=== PATIENT | female | born 1940 | race Caucasian/White ===

== ENCOUNTER → 2016-09-19 | Outpatient (CLI) | payer MEDICARE, BC ==
--- NOTE | 2016-09-19 14:22 | BD ---
EXAMINATION TYPE: MG DEXA axial skeleton. DATE OF EXAM: 09/19/2016 1:04 PM COMPARISON: 12.19.2011 CLINICAL HISTORY: M85.80, Z78.0 POST MENOPAUSAL Height: 64.5 Weight: 145 FRAX RISK QUESTIONS: Alcohol (3 or more units per day): NO Family History (Parent hip fracture): NO Glucocorticoids (More than 3mos): NO (Ex: prednisone, prednisolone, methylprednisolone, dexamethasone, and hydrocortisone). History of Fracture in Adulthood: YES Secondary Osteoporosis: 1. Type 1 Diabetes: TYPE 2 2. Hyperthyroidism: NO 3. Menopause before 45: NO 4. Malnutrition: NO 5. Chronic liver disease: NO Rheumatoid Arthritis: NO Current Tobacco Use: NO RISK FACTORS HISTORY OF: History of Wrist SURGERY: CARPAL TUNNEL SURG. BOTH WRISTS AND THUMB REPLACEMENT LT Other Fractures since Age 50: YES, TOE AND ANKLE When: > 50 YRS OLD Family History of Osteoporosis: NO Smoke tobacco: NO Drink Alcohol: SOCIAL Active: YES Diet low in dairy products/other sources of calcium: NO Postmenopausal woman: 51 YRS OLD Adrenal Insufficiency: YES, POSSIBLE, CHRONIC RENAL DISEASE MEDICATIONS: Additional Medications: BP MEDS, DIABETIC MEDS, XANAX PRN, STATINS FOR CHOLESTEROL, VIT D Additional History: DIABETIC, HYPERTENSION, CHRONIC RENAL DISEASE EXAM MEASUREMENTS: Bone mineral densitometry was performed using the [employer] System. Bone mineral density as measured about the Lumbar spine is: ----- L1-L4(G/cm2): 1.385 T Score Values are as follows: ----- L1: 0.8 ----- L2: 0.6 ----- L3: 3.4 ----- L4: 1.8 ----- L1-L4: 1.7 Bone mineral density has: Increased 4.6% since study of: 12.19.2011 Bone mineral density about the R hip (g/cm2): 0.963 Bone mineral density about the L hip (g/cm2): 1.043 T Score values are as follows: -----R Neck: -0.5 -----L Neck: 0.0 -----R Intertrochanter: -0.7 -----L Intertrochanter: -0.4 Bone mineral density has: Decreased -9.0% since study of: 04.06.2012 FRAX%'S: FOR MAJOR OSTEOPOROTIC FX: 13.7%.....FOR HIP FX: 1.6% PROBABILITY OF FX IN 10 YRS TIME IMPRESSION: Normal (Values between +1 and -1 indicate normal bone mass) FOR BOTH SCANS, L/S SPINE AND BOTH HIPS NOTE: T-SCORE=SD OF THE YOUNG ADULT MEAN.
--- NOTE | 2016-09-22 09:14 | MM ---
Reason for exam: screening (asymptomatic). Last mammogram was performed 1 year and 1 month ago. History: Patient is postmenopausal, history of other cancer, and is nulliparous. Family history of premenopausal breast cancer in sister at age 40, breast cancer in paternal cousin at age 55, and breast cancer in maternal aunt at age 74. Excisional biopsy of the left breast, 1981. Took estrogen for 10 years beginning at age 52. Took progesterone for 10 years beginning at age 52. Physical Findings: A clinical breast exam by your physician is recommended on an annual basis and results should be correlated with mammographic findings. MG 3D Screening Mammo W/Cad Bilateral CC and MLO view(s) were taken. Prior study comparison: August 22, 2015, bilateral MG 3d screening mammo w/cad. July 12, 2014, bilateral MG screening mammo w CAD. The breast tissue is heterogeneously dense. This may lower the sensitivity of mammography. There is no discrete abnormality. No significant changes when compared with prior studies. ASSESSMENT: Negative, BI-RAD 1 RECOMMENDATION: Routine screening mammogram of both breasts in 1 year.
== END | disposition home or self-care (01) ==
LOC: RADMAMWWP 11:55
PROVIDERS: ATTEND Internal Medicine
DX: Z12.31 Encounter for screening mammogram for malignant neoplasm of breast (principal); M85.80 Other specified disorders of bone density and structure, unspecified site
CPT/HCPCS: 77080; 77063; G0202

== ENCOUNTER → 2016-12-22 | Outpatient (CLI) | payer MEDICARE, BC ==
[2016-12-22 10:20] LABS: Appearance,Urine Clear (Clear); Bilirubin,Urine Negative (Negative); Glucose,Urine (UA) Negative (Negative); Ketones,Urine Negative (Negative); Leukocyte Esterase,Urine Trace (Negative); Mucus,Urine Rare /hpf; Nitrite,Urine Negative (Negative); PH, Urine 5.5 (5.0-8.0); Particle Count 682; Protein,Urine Negative (Negative); RBC,Urine 1 /hpf (0-5); Specific Gravity,Urine 1.011 (1.001-1.035); Squamous Epithelial Cell,Urine <1 /hpf (0-4); UA Billing (MACRO vs. MICRO) MICRO; Urobilinogen,Urine <2.0 mg/dL (<2.0); WBC,Urine 2 /hpf (0-5)
[2016-12-22 10:27] LABS: Basophils # (A) 0.1 k/uL (0-0.2); Basophils % (A) 1 %; CH 30.2; CHCM 33.4; Eosinophils # (A) 0.2 k/uL (0-0.7); Eosinophils % (A) 3 %; HCT 41.5 % (34.0-46.0); HDW 2.74; HGB 14.2 gm/dL (11.4-16.0); Luc # (Auto) 0.13; Luc % (Auto) 2; Lymphocytes # (A) 1.5 k/uL (1.0-4.8); Lymphocytes % (A) 23 %; MCH 31.1 pg (25.0-35.0); MCHC 34.2 g/dL (31.0-37.0); Mean Platelet Volume 7.8; Monocytes # (A) 0.3 k/uL (0-1.0); Monocytes % (A) 5 %; Neutrophils # (A) 4.4 k/uL (1.3-7.7); Neutrophils % (A) 67 %; RBC 4.56 m/uL (3.80-5.40); RDW 13.4 % (11.5-15.5); WBC 6.6 k/uL (3.8-10.6); WBC (Perox) 6.52
[2016-12-22 14:58] LABS: Calcium 9.9 mg/dL (8.4-10.2); Magnesium 1.8 mg/dL (1.6-2.3); Potassium 4.3 mmol/L (3.5-5.1); Uric Acid 7.2 mg/dL (3.7-7.4)
[2016-12-22 15:09] LABS: % Iron Saturation 26.2 % (20-50)
== END | disposition home or self-care (01) ==
LOC: LABWHC1 09:41
PROVIDERS: ATTEND Internal Medicine Nephrology
DX: N18.3 Chronic kidney disease, stage 3 (moderate) (principal); N39.0 Urinary tract infection, site not specified; D64.9 Anemia, unspecified; E56.9 Vitamin deficiency, unspecified; M10.9 Gout, unspecified
CPT/HCPCS: 36415; 80048; 81001; 82306; 82728; 83540; 83550; 83735; 83970; 84100; 84550; 85025

== ENCOUNTER → 2017-06-08 | Outpatient (CLI) | payer MEDICARE, BC ==
[2017-06-08 11:17] LABS: Appearance,Urine Clear (Clear); Bacteria,Urine Rare /hpf; Bilirubin,Urine Negative (Negative); Glucose,Urine (UA) Negative (Negative); Ketones,Urine Negative (Negative); Leukocyte Esterase,Urine Moderate (Negative); Mucus,Urine Rare /hpf; Nitrite,Urine Negative (Negative); PH, Urine 5.5 (5.0-8.0); Particle Count 1477; Protein,Urine Trace (Negative); RBC,Urine 1 /hpf (0-5); Specific Gravity,Urine 1.014 (1.001-1.035); Squamous Epithelial Cell,Urine 1 /hpf (0-4); UA Billing (MACRO vs. MICRO) MICRO; Urobilinogen,Urine <2.0 mg/dL (<2.0); WBC,Urine 3 /hpf (0-5)
[2017-06-08 11:23] LABS: Basophils % (A) 1 %; CH 30.5; CHCM 33.4; Eosinophils # (A) 0.1 k/uL (0-0.7); Eosinophils % (A) 2 %; HCT 41.7 % (34.0-46.0); HDW 2.78; Luc # (Auto) 0.11; Luc % (Auto) 2; Lymphocytes # (A) 1.3 k/uL (1.0-4.8); Lymphocytes % (A) 23 %; MCH 30.9 pg (25.0-35.0); MCHC 33.7 g/dL (31.0-37.0); MCV 91.8 fL (80.0-100.0); Mean Platelet Volume 9.4; Monocytes # (A) 0.4 k/uL (0-1.0); Monocytes % (A) 6 %; Neutrophils # (A) 3.7 k/uL (1.3-7.7); Neutrophils % (A) 65 %; RBC 4.54 m/uL (3.80-5.40); WBC 5.6 k/uL (3.8-10.6); WBC (Perox) 5.65
[2017-06-08 11:39] LABS: Calcium 9.8 mg/dL (8.4-10.2); Magnesium 1.7 mg/dL (1.6-2.3); Potassium 4.3 mmol/L (3.5-5.1); Uric Acid 7.4 mg/dL (3.7-7.4)
[2017-06-08 16:42] LABS: Iron Saturation 27.78 (12.00-45.00)
== END | disposition home or self-care (01) ==
LOC: LABWHC1 10:26
PROVIDERS: ATTEND Internal Medicine Nephrology
DX: N18.3 Chronic kidney disease, stage 3 (moderate) (principal); E56.9 Vitamin deficiency, unspecified; D64.9 Anemia, unspecified; M10.9 Gout, unspecified; N39.0 Urinary tract infection, site not specified
CPT/HCPCS: 36415; 80048; 81001; 82306; 82728; 83540; 83550; 83735; 83970; 84100; 84550; 85025

== ENCOUNTER 2017-09-08 16:48 | Emergency (ER) | payer MEDICARE, BC ==
[2017-09-08 17:07] VITALS: BP 167/81; PULSE 60; RESP 20; TEMP 98.1
[2017-09-08] MEDS ORDERED: DIPH,PERTUS(ACELL)TETVAC-LF 0.5 ML VIAL IM ONE (17:39)
--- NOTE | 2017-09-08 18:01 | XR ---
PROCEDURE: XR tibia fibula LT 2 views DATE AND TIME: 09/08/2017 5:47 PM REFERRING PHYSICIAN: Kathy Jasmine CLINICAL INDICATION: Pain. Laceration to left lower leg after fall. TECHNIQUE: AP and lateral views. COMPARISON: None FINDINGS: SOFT TISSUES: There is comminuted soft tissue swelling and soft tissue emphysema between the posterom edial skin of the proximal and mid leg and the proximal-mid tibia. Soft tissue arterial calcifications noted, consistent with advanced atherosclerosis. No radiopaque foreign bodies. SKELETAL STRUCTURES: The bones and joints are unremarkable. IMPRESSION: PROMINENT SOFT TISSUE EMPHYSEMA AND SOFT TISSUE SWELLING.
--- NOTE | 2017-09-08 18:56 | ED ---
Wound/Laceration HPI - General Chief Complaint: Wound/Laceration Stated Complaint: Fall-leg injury/laceration Time Seen by Provider: 09/08/17 17:11 Source: patient, family Mode of arrival: wheelchair Limitations: no limitations - History of Present Illness Initial Comments: 76 year-old female patient presents to the emergency department today for complaints of the laceration to the left pires. Patient states that she was climbing up on a wooden chair to put away some supplies when she fell from the chair scraping her leg. She states that she had a large cut to her leg and had a lot of blood loss. She states that she was able to get the bleeding under control however presented here for evaluation. She denies hitting her head or losing consciousness during the fall. She is denying any head or neck pain. Denies any back pain. She is unsure when her last tetanus shot was given. She takes aspirin. Patient denies any headache, chest pain, shortness of breath, dizziness, weakness, abdominal pain, nausea, vomiting, or difficulties with bowel movements or urination. - Related Data Home Medications Medication Instructions Recorded Confirmed ALPRAZolam [Xanax] 0.25 mg PO TID PRN 12/12/15 04/10/16 Aspirin [Adult Low Dose Aspirin EC] 81 mg PO Q48H 12/12/15 04/10/16 Ezetimibe/Simvastatin [Vytorin 1 tab PO Q48H 12/12/15 04/10/16 10-20 mg Tablet] Metoprolol Succinate [Toprol XL] 50 mg PO QAM 12/12/15 04/10/16 metFORMIN HCL [Glucophage] 500 mg PO HS 12/12/15 04/10/16 sitaGLIPtin PHOS/metFORMIN HCL 1 tab PO BID 12/12/15 04/10/16 [Janumet 50-500 mg Tablet] Ergocalciferol [Vitamin D2] 50,000 unit PO QMONTH 01/07/16 04/10/16 Latanoprost Ophth [Xalatan 0.005%] 1 drops BOTH EYES HS 01/07/16 04/10/16 amLODIPine [Norvasc] 10 mg PO HS 01/07/16 04/10/16 Previous Rx's Medication Instructions Recorded Cephalexin [Keflex] 500 mg PO Q6H #28 cap 12/26/17 Allergies Allergy/AdvReac Type Severity Reaction Status Date / Time benazepril Allergy Angioedema Verified 09/08/17 17:07 Sulfa (Sulfonamide Allergy Rash/Hives Verified 09/08/17 17:07 Antibiotics) ibuprofen [From Motrin] AdvReac "unable to Verified 09/08/17 17:07 get up out of bed" Review of Systems ROS Statement: Those systems with pertinent positive or pertinent negative responses have been documented in the HPI. ROS Other: All systems not noted in ROS Statement are negative. Past Medical History Past Medical History: Coronary Artery Disease (CAD), Diabetes Mellitus, Eye Disorder, Hyperlipidemia, Hypertension, Renal Disease Additional Past Medical History / Comment(s): kidney dr recommended she get an Fe infusion, she did so had a reaction during infusion (throat & tongue sweeling ) went to ER & was told that she was allergic to bezapril that she was taking & it was stopped, glaucoma History of Any Multi-Drug Resistant Organisms: None Reported Past Surgical History: Adenoidectomy, Breast Surgery, Hysterectomy, Joint Replacement, Orthopedic Surgery, Tonsillectomy Additional Past Surgical History / Comment(s): left breast biopsy, laproscopic via naval "to check ovaries and uterus", D & C, carpal tunnel in left & right hand & left thumb joint replacement, bladder prolapse & replace, EGD, colonoscopy, bilateral eyelid surgery Past Anesthesia/Blood Transfusion Reactions: No Reported Reaction Past Psychological History: No Psychological Hx Reported Smoking Status: Never smoker Past Alcohol Use History: None Reported Past Drug Use History: None Reported - Past Family History Mother Family Medical History: Cancer, Coronary Artery Disease (CAD), Hypertension Additional Family Medical History / Comment(s): CA: skin Father Family Medical History: Cancer, Coronary Artery Disease (CAD), Hypertension, Myocardial Infarction ([place]) Additional Family Medical History / Comment(s): CA:skin General Exam Limitations: no limitations General appearance: alert, in no apparent distress, other (Physical well- developed, well-nourished elderly female patient in no acute distress. Vital signs upon presentation were temperature 98.1F, pulse 60, respirations 20, blood pressure 167/81, pulse ox 98% on room air.) Course Vital Signs 09/08/17 17:05 Temperature 98.1 F Pulse Rate 60 Respiratory 20 Rate Blood Pressure 167/81 O2 Sat by Pulse 98 Oximetry Procedures - Laceration Laceration #1 Time Out Performed: Yes Indication: laceration Site: lower extremity (left ) Size (cm): 12 Description: flap Depth: simple, single layer Anesthetic Used: lidocaine 1% Amount (mls): 25 Type of Sutures: nylon Size of Sutures: 4-0 Number of Sutures: 17 Technique: simple, interrupted (12), horizontal mattress (5) Patient Tolerated Procedure: well, no complications Medical Decision Making - Medical Decision Making 76 year-old female patient presented to the emergency department today for evaluation of laceration to the left pires. Physical examination did reveal a 12 cm laceration to the left pires, with a flap-like laceration. Area was irrigated extensively. Sutures were placed as documented. She will be put on keflex due to her history of diabetes and the size of the laceration. Patient was educated regarding signs or symptoms of infection. She is instructed to follow-up with her primary care physician for reevaluation of the wound in 1-2 days. She is instructed to return here for suture removal in 14-21 days. She was instructed to return here immediately for any new, worsening, or concerning symptoms. She verbalized understanding and agree with this plan. - Radiology Data Radiology results: report reviewed, image reviewed 2 views of the tib-fib were obtained and show comminuted soft tissue swelling and soft tissue emphysema between the process tear over medial scan of the proximal and mid leg in the proximal mid tibia. Soft tissue arterial calcifications noted, consistent with advanced atherosclerosis. No radiopaque foreign bodies. Skeletal structures are unremarkable. Impression by Dr. Alvin Kaye shows prominent soft tissue emphysema and soft tissue swelling. Disposition Clinical Impression: Laceration of lower leg Disposition: HOME SELF-CARE Condition: Good Instructions: Care For Your Stitches (ED), Laceration (ED) Additional Instructions: Keep wound clean and dry. Gently wash twice daily with warm water and antibacterial soap. Monitor for signs or symptoms of infection including but not limited to redness, drainage of pus, swelling, fever, or chills. Return in 1421 days for removal of stitches. Follow-up with her primary care physician for a wound recheck. Return here immediately for any new, worsening, or concerning symptoms. Prescriptions: Cephalexin [Keflex] 500 mg PO Q6H #28 cap Referrals: Sarthak Sow MD [Primary Care Provider] - 1-2 days Time of Disposition: 18:56
== END 2017-09-08 19:05 | disposition home or self-care (01) ==
LOC: EC 16:48
DX: S81.812A Laceration without foreign body, left lower leg, initial encounter (principal); T79.7XXA Traumatic subcutaneous emphysema, initial encounter; E78.5 Hyperlipidemia, unspecified; I10 Essential (primary) hypertension; I25.10 Atherosclerotic heart disease of native coronary artery without angina pectoris; E11.9 Type 2 diabetes mellitus without complications; H40.9 Unspecified glaucoma; Z79.82 Long term (current) use of aspirin; Z79.899 Other long term (current) drug therapy; Z79.84 Long term (current) use of oral hypoglycemic drugs; Z88.2 Allergy status to sulfonamides; Z88.6 Allergy status to analgesic agent; Z88.8 Allergy status to other drugs, medicaments and biological substances; Z23 Encounter for immunization; W07.XXXA Fall from chair, initial encounter; Y93.39 Activity, other involving climbing, rappelling and jumping off
CPT/HCPCS: 12004; 90471; 90715; 99283

== ENCOUNTER 2017-09-15 10:37 | Emergency (ER) | payer MEDICARE, BC ==
--- NOTE | 2017-09-15 12:43 | ED ---
Medical Decision Making - Medical Decision Making PA supervision I did personally evaluate the patient did have a long discussion with the patient and her regarding findings. The wound appears to be healing no slowly there is some tissue reaction from his sutures with her not to be taken out for about another week. No evidence of any purulent drainage. No proximal lymphadenopathy. No calf tenderness no evidence of DVT at this time clinically. I do agree with the assessment and plan. Disposition Clinical Impression: Encounter for wound re-check Disposition: HOME SELF-CARE Condition: Good Referrals: Sarthak Sow MD [Primary Care Provider] - 1-2 days
--- NOTE | 2017-09-15 12:52 | ED ---
Recheck HPI - General Chief Complaint: Recheck/Abnormal Lab/Rx Stated Complaint: Wound recheck Time Seen by Provider: 09/15/17 12:03 Source: patient, RN notes reviewed Mode of arrival: ambulatory Limitations: no limitations - History of Present Illness Initial Comments: This is a 76-year-old female who presents to the emergency department for wound recheck. Patient was seen here last Thursday when she sustained a laceration to her left lower extremity. She ended up getting 18 sutures and was placed on Keflex. Patient noticed some bleeding, redness and swelling to the area and presented to [facility] on Thursday. They placed Steri-Strips and added amoxicillin to her antibiotic regimen. Patient presents to the emergency department today worried about a wound infection. She states that she has had the wound covered for the past 2 days because it was bleeding and she believed there were areas that were gaping open. Patient states that she has a history of PAD and diabetes so worries about healing of her wound. Denies any fevers or chills. Denies chest pain, shortness of breath, abdominal pain, nausea or vomiting, constipation or diarrhea, dysuria or hematuria, numbness or tingling, headache or vision changes. - Related Data Home Medications Medication Instructions Recorded Confirmed ALPRAZolam [Xanax] 0.25 mg PO TID PRN 12/12/15 04/10/16 Aspirin [Adult Low Dose Aspirin EC] 81 mg PO Q48H 12/12/15 04/10/16 Ezetimibe/Simvastatin [Vytorin 1 tab PO Q48H 12/12/15 04/10/16 10-20 mg Tablet] Metoprolol Succinate [Toprol XL] 50 mg PO QAM 12/12/15 04/10/16 metFORMIN HCL [Glucophage] 500 mg PO HS 12/12/15 04/10/16 sitaGLIPtin PHOS/metFORMIN HCL 1 tab PO BID 12/12/15 04/10/16 [Janumet 50-500 mg Tablet] Ergocalciferol [Vitamin D2] 50,000 unit PO QMONTH 01/07/16 04/10/16 Latanoprost Ophth [Xalatan 0.005%] 1 drops BOTH EYES HS 01/07/16 04/10/16 amLODIPine [Norvasc] 10 mg PO HS 01/07/16 04/10/16 Previous Rx's Medication Instructions Recorded Cephalexin [Keflex] 500 mg PO Q6H #28 cap 09/08/17 Allergies Allergy/AdvReac Type Severity Reaction Status Date / Time benazepril Allergy Angioedema Verified 09/15/17 11:06 Sulfa (Sulfonamide Allergy Rash/Hives Verified 09/15/17 11:06 Antibiotics) ibuprofen [From Motrin] AdvReac "unable to Verified 09/15/17 11:06 get up out of bed" Review of Systems ROS Statement: Those systems with pertinent positive or pertinent negative responses have been documented in the HPI. ROS Other: All systems not noted in ROS Statement are negative. Past Medical History Past Medical History: Coronary Artery Disease (CAD), Diabetes Mellitus, Eye Disorder, Hyperlipidemia, Hypertension, Renal Disease Additional Past Medical History / Comment(s): kidney dr recommended she get an Fe infusion, she did so had a reaction during infusion (throat & tongue sweeling ) went to ER & was told that she was allergic to bezapril that she was taking & it was stopped, glaucoma History of Any Multi-Drug Resistant Organisms: None Reported Past Surgical History: Adenoidectomy, Breast Surgery, Hysterectomy, Joint Replacement, Orthopedic Surgery, Tonsillectomy Additional Past Surgical History / Comment(s): left breast biopsy, laproscopic via naval "to check ovaries and uterus", D & C, carpal tunnel in left & right hand & left thumb joint replacement, bladder prolapse & replace, EGD, colonoscopy, bilateral eyelid surgery Past Anesthesia/Blood Transfusion Reactions: No Reported Reaction Past Psychological History: No Psychological Hx Reported Smoking Status: Never smoker Past Alcohol Use History: None Reported Past Drug Use History: None Reported - Past Family History Mother Family Medical History: Cancer, Coronary Artery Disease (CAD), Hypertension Additional Family Medical History / Comment(s): CA: skin Father Family Medical History: Cancer, Coronary Artery Disease (CAD), Hypertension, Myocardial Infarction ([place]) Additional Family Medical History / Comment(s): CA:skin General Exam - General Exam Comments Initial Comments: General: Awake and alert, well-developed; in no apparent distress. HEENT: Head atraumatic, normocephalic. Pupils are equal, round and reactive to light. Extraocular movements intact. Neck: Supple. Normal ROM. Cardiovascular: Regular rate and rhythm. No murmurs, rubs or gallops. Chest symmetrical. Respiratory: Lungs clear to auscultation bilaterally. No wheezes, rales or rhonchi. Normal respiratory effort with no use of accessory muscles. Musculoskeletal: Normal ROM of left lower extremity. Sensation is intact. Pedal pulses are 2+ equal and palpable bilaterally. Skin: [place], warm and dry without rashes. There is a "J-shaped" laceration on left lower pires. Sutures are intact with 3 Steri-Strips present. There is some swelling of the left lower extremity and redness surrounding the wound. There is some serous drainage present. No calf tenderness. Negative Homans sign. Neurological: Alert and oriented x3. CN II-XII grossly intact. Speech is fluent and answers are appropriate. No focal neuro deficits. Psychiatric: Normal mood and affect. No overt signs of depression or anxiety noted. Limitations: no limitations Course Vital Signs 09/15/17 11:02 Temperature 96.8 F L Pulse Rate 63 Respiratory 16 Rate Blood Pressure 161/74 O2 Sat by Pulse 100 Oximetry Medical Decision Making - Medical Decision Making This is a 76-year-old female who presented to the emergency department for wound recheck. Patient was seen here last Thursday after sustaining a laceration to her left lower extremity. She received 18 sutures at the time. Patient was placed on Keflex. On Thursday she noted some bloody drainage and presented to [facility]. They applied Steri-Strips and added amoxicillin to her regimen. Patient presents today concerned for a skin infection. The area is mildly erythematous and tender but appears to be healing well. This case was discussed with attending physician, Dr. Weller who also evaluated and educated the patient. She is to continue her regimen of amoxicillin and Keflex. Recommended elevating her leg above her heart up to 4 times per day for 20 minutes at a time to reduce the swelling. She is to present next Thursday to the emergency department to have the sutures removed. Patient is in agreement with plan voices understanding. All cushions were answered. Disposition Clinical Impression: Encounter for wound re-check Disposition: HOME SELF-CARE Condition: Good Instructions: Care For Your Stitches (ED), Laceration (ED) Additional Instructions: Please present to the emergency department next Thursday to have sutures removed. Please follow up with primary care provider within 1-2 days. Return to emergency department if symptoms should worsen or any concerns arise. Please clean the area with only soap and water. Please continue taking Amoxicillin and Keflex as prescribed. Referrals: Sarthak Sow MD [Primary Care Provider] - 1-2 days Time of Disposition: 12:52
[2017-09-16 23:01] VITALS: BP 161/74; PULSE 63; RESP 16; TEMP 96.8
== END 2017-09-15 12:56 | disposition home or self-care (01) ==
LOC: EC 10:37
DX: Z48.817 Encounter for surgical aftercare following surgery on the skin and subcutaneous tissue (principal); I25.10 Atherosclerotic heart disease of native coronary artery without angina pectoris; E11.9 Type 2 diabetes mellitus without complications; E78.5 Hyperlipidemia, unspecified; I10 Essential (primary) hypertension; Z79.82 Long term (current) use of aspirin; Z79.84 Long term (current) use of oral hypoglycemic drugs; Z79.899 Other long term (current) drug therapy; Z88.8 Allergy status to other drugs, medicaments and biological substances; Z88.2 Allergy status to sulfonamides; Z88.6 Allergy status to analgesic agent
CPT/HCPCS: 99282

== ENCOUNTER → 2017-12-07 | Outpatient (CLI) | payer MEDICARE, BC ==
--- NOTE | 2017-12-08 10:55 | MM ---
Reason for exam: screening (asymptomatic). Last mammogram was performed 1 year and 3 months ago. History: Patient is postmenopausal, history of other cancer, and is nulliparous. Family history of premenopausal breast cancer in sister at age 77, breast cancer in paternal cousin at age 45, and breast cancer in maternal aunt at age 74. Excisional biopsy of the left breast, 1981. Took estrogen for 10 years beginning at age 52. Took progesterone for 10 years beginning at age 52. Physical Findings: A clinical breast exam by your physician is recommended on an annual basis and results should be correlated with mammographic findings. MG 3D Screening Mammo W/Cad Bilateral CC and MLO view(s) were taken. Prior study comparison: September 19, 2016, bilateral MG 3d screening mammo w/cad. August 22, 2015, bilateral MG 3d screening mammo w/cad. There are scattered fibroglandular densities. No significant changes when compared with prior studies. ASSESSMENT: Benign, BI-RAD 2 RECOMMENDATION: Routine screening mammogram of both breasts in 1 year.
== END | disposition home or self-care (01) ==
LOC: RADMAMWWP 10:57
PROVIDERS: ATTEND Internal Medicine
DX: Z12.31 Encounter for screening mammogram for malignant neoplasm of breast (principal); Z80.3 Family history of malignant neoplasm of breast
CPT/HCPCS: 77063; 77067

== ENCOUNTER → 2018-01-14 | Outpatient (CLI) | payer MEDICARE, BC ==
[2018-01-14 11:07] LABS: Basophils % (A) 1 %; Eosinophils # (A) 0.2 k/uL (0-0.7); Eosinophils % (A) 3 %; HCT 40.9 % (34.0-46.0); HGB 13.9 gm/dL (11.4-16.0); Lymphocytes # (A) 1.4 k/uL (1.0-4.8); Lymphocytes % (A) 26 %; MCH 29.1 pg (25.0-35.0); MCHC 33.9 g/dL (31.0-37.0); MCV 85.8 fL (80.0-100.0); Mean Platelet Volume 9.6; Monocytes # (A) 0.3 k/uL (0-1.0); Monocytes % (A) 6 %; Neutrophils # (A) 3.3 k/uL (1.3-7.7); Neutrophils % (A) 62 %; Platelet Count 130 k/uL (150-450); RBC 4.77 m/uL (3.80-5.40); RDW 13.2 % (11.5-15.5); WBC 5.3 k/uL (3.8-10.6)
[2018-01-14 11:33] LABS: Calcium 9.6 mg/dL (8.4-10.2); Magnesium 1.6 mg/dL (1.6-2.3); Phosphorus 3.9 mg/dL (2.5-4.5); Potassium 4.2 mmol/L (3.5-5.1)
[2018-01-14 11:34] LABS: Appearance,Urine Clear (Clear); Bilirubin,Urine Negative (Negative); Blood,Urine Negative (Negative); Color,Urine Yellow; Glucose,Urine (UA) Negative (Negative); Hyaline Casts,Urine 9 /lpf (0-2); Ketones,Urine Negative (Negative); Leukocyte Esterase,Urine Small (Negative); Mucus,Urine Rare /hpf; Nitrite,Urine Negative (Negative); PH, Urine 5.5 (5.0-8.0); Protein,Urine Trace (Negative); RBC,Urine 1 /hpf (0-5); Specific Gravity,Urine 1.012 (1.001-1.035); Squamous Epithelial Cell,Urine <1 /hpf (0-4); Urobilinogen,Urine <2.0 mg/dL (<2.0); WBC,Urine 3 /hpf (0-5)
[2018-01-14 16:46] LABS: Iron Saturation 28.81 (12.00-45.00)
[2018-01-14 16:54] LABS: Vitamin D 25 Hydroxy 30.4 ng/mL (30.0-100.0)
[2018-01-14 17:19] LABS: Parathyroid Hormone Intact 97.9 pg/mL (14.0-72.0)
== END | disposition home or self-care (01) ==
LOC: LABWHC1 10:22
PROVIDERS: ATTEND Internal Medicine Nephrology
DX: D64.9 Anemia, unspecified (principal); E55.9 Vitamin D deficiency, unspecified; E21.3 Hyperparathyroidism, unspecified; M10.9 Gout, unspecified; N39.0 Urinary tract infection, site not specified; N18.3 Chronic kidney disease, stage 3 (moderate)
CPT/HCPCS: 36415; 80048; 81001; 82306; 82728; 83540; 83550; 83735; 83970; 84100; 84550; 85025

== ENCOUNTER → 2018-07-15 | Outpatient (CLI) | payer MEDICARE, BC ==
[2018-07-15 12:57] LABS: Basophils % (A) 1 %; Eosinophils # (A) 0.1 k/uL (0-0.7); Eosinophils % (A) 2 %; HGB 13.3 gm/dL (11.4-16.0); Lymphocytes # (A) 1.3 k/uL (1.0-4.8); Lymphocytes % (A) 18 %; MCH 29.8 pg (25.0-35.0); MCHC 33.3 g/dL (31.0-37.0); MCV 89.6 fL (80.0-100.0); Mean Platelet Volume 9.8; Monocytes # (A) 0.4 k/uL (0-1.0); Monocytes % (A) 6 %; Neutrophils # (A) 5.1 k/uL (1.3-7.7); Neutrophils % (A) 72 %; Platelet Count 153 k/uL (150-450); RBC 4.46 m/uL (3.80-5.40); RDW 13.2 % (11.5-15.5)
[2018-07-15 14:44] LABS: Appearance,Urine Clear (Clear); Bacteria,Urine Rare /hpf; Bilirubin,Urine Negative (Negative); Blood,Urine Negative (Negative); Color,Urine Yellow; Glucose,Urine (UA) Negative (Negative); Ketones,Urine Negative (Negative); Leukocyte Esterase,Urine Small (Negative); Mucus,Urine Rare /hpf; Nitrite,Urine Negative (Negative); PH, Urine 5.5 (5.0-8.0); Protein,Urine Trace (Negative); Specific Gravity,Urine 1.016 (1.001-1.035); Squamous Epithelial Cell,Urine <1 /hpf (0-4); Urobilinogen,Urine <2.0 mg/dL (<2.0); WBC,Urine 5 /hpf (0-5)
[2018-07-15 19:00] LABS: Iron Saturation 17.45 (12.00-45.00)
[2018-07-15 19:06] LABS: Anion Gap 9.9 mmol/L (4.00-12.00); Calcium 9.2 mg/dL (8.7-10.3); Carbon Dioxide 22.1 mmol/L (21.6-31.8); Magnesium 1.7 mg/dL (1.5-2.4); Phosphorus 3.8 mg/dL (2.4-5.1); Potassium 4.2 mmol/L (3.5-5.5); Uric Acid 6.6 mg/dL (2.9-7.7)
[2018-07-15 19:37] LABS: Parathyroid Hormone Intact 99.6 pg/mL (14.0-72.0)
[2018-07-15 22:15] LABS: Vitamin D 25 Hydroxy 30.6 ng/mL (30.0-100.0)
== END | disposition home or self-care (01) ==
LOC: LABWHC1 11:16
PROVIDERS: ATTEND Internal Medicine Nephrology
DX: M10.9 Gout, unspecified (principal); N39.0 Urinary tract infection, site not specified; N18.3 Chronic kidney disease, stage 3 (moderate); E21.3 Hyperparathyroidism, unspecified; E55.9 Vitamin D deficiency, unspecified; D50.9 Iron deficiency anemia, unspecified
CPT/HCPCS: 36415; 80048; 81001; 82306; 82728; 83540; 83550; 83735; 83970; 84100; 84550; 85025

== ENCOUNTER → 2018-08-02 | Outpatient (CLI) | payer MEDICARE, BC ==
[2018-08-02 12:36] LABS: Calcium 9.8 mg/dL (8.4-10.2); Potassium 4.4 mmol/L (3.5-5.1)
--- NOTE | 2018-08-02 16:21 | US ---
EXAMINATION TYPE: US kidneys/renal and bladder DATE OF EXAM: 08/02/2018 COMPARISON: 09/25/2015 CLINICAL HISTORY: 77-year-old female N18.3 Chronic Kidney Stage 3. CKD stage 3 TECHNIQUE: Multiple sonographic images of the kidneys and bladder are obtained. FINDINGS: EXAM MEASUREMENTS: Right Kidney: 10.4 x 4.5 x 5.5 cm Left Kidney: 9.6 x 4.9 x 4.9 cm Right Kidney: pelviectasis without calyceal dilatation. Left Kidney: no hydronephrosis. Bladder: wnl Bilateral Jets seen: yes Incidental: Gallbladder: cholelithiasis IMPRESSION: 1. Right-sided pelviectasis probably transient. No calyceal dilatation to suggest juan r hydronephrosi s. Short interval follow-up can be considered. 2. Both ureteral jets are seen. 3. Incidental cholelithiasis.
== END | disposition home or self-care (01) ==
LOC: RADUSWWP 11:35
PROVIDERS: ATTEND Internal Medicine Nephrology
DX: N28.89 Other specified disorders of kidney and ureter (principal); N18.3 Chronic kidney disease, stage 3 (moderate)
CPT/HCPCS: 76770; 80048

== ENCOUNTER → 2018-12-18 | Outpatient (CLI) | payer MEDICARE, BC ==
--- NOTE | 2018-12-20 10:21 | MM ---
Reason for exam: screening (asymptomatic). Last mammogram was performed 1 year ago. History: Patient is postmenopausal, history of other cancer, and is nulliparous. Family history of premenopausal breast cancer in sister at age 77, breast cancer in paternal cousin at age 45, and breast cancer in maternal aunt at age 74. Excisional biopsy of the left breast, 1981. Took estrogen for 10 years beginning at age 52. Took progesterone for 10 years beginning at age 52. Physical Findings: A clinical breast exam by your physician is recommended on an annual basis and results should be correlated with mammographic findings. MG 3D Screening Mammo W/Cad Bilateral CC and MLO view(s) were taken. XCCL view(s) were taken of the right breast. Prior study comparison: December 07, 2017, bilateral MG 3d screening mammo w/cad. September 19, 2016, bilateral MG 3d screening mammo w/cad. No significant changes when compared with prior studies. ASSESSMENT: Benign, BI-RAD 2 RECOMMENDATION: Routine screening mammogram of both breasts in 1 year.
== END | disposition home or self-care (01) ==
LOC: RADMAMWWP 10:22
PROVIDERS: ATTEND Internal Medicine
DX: Z12.31 Encounter for screening mammogram for malignant neoplasm of breast (principal); Z80.3 Family history of malignant neoplasm of breast
CPT/HCPCS: 77063; 77067

== ENCOUNTER → 2019-02-15 | Outpatient (CLI) | payer MEDICARE, BC ==
[2019-02-15 10:45] LABS: Basophils # (A) 0.1 k/uL (0-0.2); Basophils % (A) 1 %; Eosinophils # (A) 0.2 k/uL (0-0.7); Eosinophils % (A) 3 %; HCT 43.1 % (34.0-46.0); HGB 14.2 gm/dL (11.4-16.0); Lymphocytes # (A) 1.1 k/uL (1.0-4.8); Lymphocytes % (A) 22 %; MCH 29.2 pg (25.0-35.0); MCHC 32.9 g/dL (31.0-37.0); MCV 88.7 fL (80.0-100.0); Mean Platelet Volume 9.5; Monocytes # (A) 0.3 k/uL (0-1.0); Monocytes % (A) 6 %; Neutrophils # (A) 3.5 k/uL (1.3-7.7); Neutrophils % (A) 67 %; Platelet Count 148 k/uL (150-450); RBC 4.86 m/uL (3.80-5.40); RDW 13.3 % (11.5-15.5); WBC 5.2 k/uL (3.8-10.6)
[2019-02-15 11:51] LABS: Appearance,Urine Clear (Clear); Bilirubin,Urine Negative (Negative); Blood,Urine Negative (Negative); Color,Urine Yellow; Glucose,Urine (UA) Negative (Negative); Ketones,Urine Negative (Negative); Leukocyte Esterase,Urine Trace (Negative); Mucus,Urine Rare /hpf; Nitrite,Urine Negative (Negative); PH, Urine 6.5 (5.0-8.0); Protein,Urine Trace (Negative); RBC,Urine 1 /hpf (0-5); Specific Gravity,Urine 1.014 (1.001-1.035); Squamous Epithelial Cell,Urine 1 /hpf (0-4); Urobilinogen,Urine <2.0 mg/dL (<2.0); WBC,Urine 2 /hpf (0-5)
[2019-02-15 16:06] LABS: Iron Saturation 27.19 (12.00-45.00)
[2019-02-15 16:12] LABS: Vitamin D 25 Hydroxy 33.9 ng/mL (30.0-100.0)
[2019-02-15 16:52] LABS: Anion Gap 8.8 mmol/L (4.00-12.00); Calcium 9.7 mg/dL (8.7-10.3); Carbon Dioxide 27.2 mmol/L (21.6-31.8); Magnesium 1.8 mg/dL (1.5-2.4); Phosphorus 3.9 mg/dL (2.4-5.1); Potassium 4.4 mmol/L (3.5-5.5); Uric Acid 6.2 mg/dL (2.9-7.7)
[2019-02-15 17:01] LABS: Parathyroid Hormone Intact 84.2 pg/mL (14.0-72.0)
== END | disposition home or self-care (01) ==
LOC: LABWHC1 09:32
PROVIDERS: ATTEND Nurse Practitioner Family
DX: D50.9 Iron deficiency anemia, unspecified (principal); N18.3 Chronic kidney disease, stage 3 (moderate); E55.9 Vitamin D deficiency, unspecified; N25.81 Secondary hyperparathyroidism of renal origin; M10.9 Gout, unspecified; N39.0 Urinary tract infection, site not specified
CPT/HCPCS: 36415; 80048; 81001; 82306; 82728; 83540; 83550; 83735; 83970; 84100; 84550; 85025

== ENCOUNTER → 2019-03-01 | Day surgery (SDC) | payer MEDICARE, BC ==
[2019-02-22 16:09] VITALS: BMI 23.4
[~2019-03-01] MED LIST: ALPRAZolam 0.25 MG TAB PO PRN; ALPRAZolam 0.5 MG TAB PO PRN; ATORVASTATIN 80 MG TAB PO STA; ENALAPRILAT 1.25 MG/ML 1 ML VIAL ONE; HEPARIN SODIUM 1,000 UN/ML (10ML VL) IV ONE; HEPARIN SODIUM 1,000 UN/ML (10ML VL) ONE; IOPAMIDOL-370 125ML BTL INJ ONE; LIDOCAINE 1% INJ 10MG/ML (20 ML MDV) ONE; LIDOCAINE 1% INJ 10MG/ML (20 ML MDV) SQ ONE; MIDAZOLAM (PF) 2 MG/2 ML VIAL IV ONE; NITROGLYCERIN SL TABS 0.4 MG TAB SUBLINGUAL PRN; RX INFO: IV CONTRAST WAS GIVEN 1 EACH MISC MISCELLANE PRN; SODIUM CHLORIDE 0.9% 1,000 ML IV SCH; SODIUM CHLORIDE 0.9% 1,000 ML in EMPTY BAG 1 BAG IV ONE; VERAPAMIL 2.5 MG/ML 2 ML AMP ONE; hydrALAZINE HCL 20 MG/ML 1 ML VIAL ONE
[2019-03-01 09:28] VITALS: TEMP 98.2
[2019-03-01 09:39] LABS: Glucose,Whole Blood 158 mg/dL (75-99)
[2019-03-01] MEDS: VERAPAMIL SYRINGE (5 MG/10 ML) INTRAARTER ONE ×2 (12:22→12:36)
[2019-03-01 15:13] LABS: Glucose,Whole Blood 190 mg/dL (75-99)
[2019-03-01 15:22] VITALS: BP 132/73; PULSE 77; RESP 18
--- NOTE | 2019-03-01 18:22 | CC ---
CARDIAC CATHETERIZATION REPORT DATE OF SERVICE: 03/01/2019 PERFORMING PHYSICIAN: Leonardo Treviño MD. PROCEDURES PERFORMED: 1. Selective right and left coronary angiogram. 2. Left heart catheterization. INDICATION: This is a 78-year-old female patient with hypertension, dyslipidemia, chronic kidney disease, who was seen in the office recently as a new patient for intermittent episodes of throat discomfort concerning for angina. The patient does play golf, and every time she golfs she starts having throat discomfort, and every time she stops, she feels better. Because of that, she was sent for further evaluation. APPROACH: Right radial artery. COMPLICATIONS: None. LEVEL OF SEDATION: Moderate, with sedation length of 20 minutes. PROCEDURE DESCRIPTION: After obtaining informed consent, the patient was brought to the cardiac grass farm laborer. The right radial artery was cannulated using micropuncture technique. The micropuncture wire passed easily. Then I placed a 6-[place] sheath in the right radial artery. After that I gave the patient 2 mg of Verapamil IA and 10,000 units of heparin IV. I did selective right and left coronary angiogram using JR4 and JL3.5 catheters. Left heart catheterization was performed using the JR4 catheter, which flipped into the LV. Then I did pullback across the aortic valve. The procedure was completed without any complication. SELECTIVE CORONARY ANGIOGRAM: 1. Right coronary artery is a large-caliber vessel and it is a dominant vessel. The RCA is extremely calcified. In the proximal and mid it has mild disease only. The mid to distal has eccentric lesion that appeared to be in the range of 80% to 90%. The RCA distally bifurcates into PDA and PLV branches; both have mild to moderate diffuse disease. 2. The left main is extremely calcified. Its disease is about 30%. It bifurcates into the left circumflex and left anterior descending artery. 3. The left circumflex is a large-caliber vessel. It is a codominant vessel. The proximal circumflex has an eccentric lesion that appeared to be in the range of 60%. It gives rise to the first OM branch, which has mild disease only and is a large-caliber vessel. The mid circumflex appeared to be normal and the circumflex distally PDA appeared to be normal. 4. The proximal LAD has an eccentric lesion, extremely calcified, in the range of 80% to 90%. The mid LAD is diffusely diseased up to about 70% to 80%. The LAD gives rise to a first diagonal branch, which is a [id number] caliber vessel which has severe disease in the proximal portion. HEMODYNAMICS: The left ventricular end-diastolic pressure was 11 mmHg, and no significant gradient was seen across the aortic valve. CONCLUSION: 1. Extremely calcified right and left coronary systems. 2. Severe triple-vessel coronary artery disease as described above. 3. Critical disease involving the mid RCA. 4. Intermediate to severe disease involving the proximal left circumflex. 5. Critical disease involving the proximal as well as mid LAD. POST-PROCEDURE MANAGEMENT: 1. Given the above anatomy, I did recommend consulting a surgeon for evaluation of coronary artery bypass grafting. 2. If the patient to be high risk for the surgery, I would do percutaneous coronary intervention on the RCA as well as the LAD in the proximal portion. MMODL / IJN: [id number] /
== END ==
LOC: CATHCVL 08:56
PROVIDERS: ATTEND Internal Medicine Interventional Cardiology
DX: I25.110 Atherosclerotic heart disease of native coronary artery with unstable angina pectoris (principal); I25.84 Coronary atherosclerosis due to calcified coronary lesion; E78.5 Hyperlipidemia, unspecified; E11.22 Type 2 diabetes mellitus with diabetic chronic kidney disease; E78.00 Pure hypercholesterolemia, unspecified; I12.9 Hypertensive chronic kidney disease with stage 1 through stage 4 chronic kidney disease, or unspecified chronic kidney disease; E11.51 Type 2 diabetes mellitus with diabetic peripheral angiopathy without gangrene; N18.9 Chronic kidney disease, unspecified; Z79.82 Long term (current) use of aspirin; Z79.899 Other long term (current) drug therapy; Z88.6 Allergy status to analgesic agent; Z88.2 Allergy status to sulfonamides; Z82.49 Family history of ischemic heart disease and other diseases of the circulatory system
CPT/HCPCS: 93458; C1769; C1894; J0360; J2001; J1644; Q9967; J2250

== ENCOUNTER 2019-03-16 06:56 | Day surgery (SDC) | payer MEDICARE, BC ==
[2019-03-09 12:14] VITALS: BMI 23.4
[~2019-03-16 06:56] MED LIST changes: +ASPIRIN 325 MG TAB PO STA; -ENALAPRILAT 1.25 MG/ML 1 ML VIAL ONE; -HEPARIN SODIUM 1,000 UN/ML (10ML VL) IV ONE; -HEPARIN SODIUM 1,000 UN/ML (10ML VL) ONE; -IOPAMIDOL-370 125ML BTL INJ ONE; -LIDOCAINE 1% INJ 10MG/ML (20 ML MDV) ONE; -LIDOCAINE 1% INJ 10MG/ML (20 ML MDV) SQ ONE; -MIDAZOLAM (PF) 2 MG/2 ML VIAL IV ONE; -RX INFO: IV CONTRAST WAS GIVEN 1 EACH MISC MISCELLANE PRN; -SODIUM CHLORIDE 0.9% 1,000 ML IV SCH; -VERAPAMIL 2.5 MG/ML 2 ML AMP ONE; -hydrALAZINE HCL 20 MG/ML 1 ML VIAL ONE
[2019-03-16] MEDS: SODIUM CHLORIDE 0.9% 1,000 ML IV SCH ×5 (07:25→21:29)
[2019-03-16 07:45] LABS: Glucose,Whole Blood 191 mg/dL (75-99)
[2019-03-16 07:57] LABS: Basophils # (A) 0.1 k/uL (0-0.2); Basophils % (A) 1 %; Eosinophils # (A) 0.2 k/uL (0-0.7); Eosinophils % (A) 3 %; HCT 41.6 % (34.0-46.0); HGB 13.7 gm/dL (11.4-16.0); Lymphocytes # (A) 1.5 k/uL (1.0-4.8); Lymphocytes % (A) 23 %; MCHC 33.1 g/dL (31.0-37.0); MCV 87.7 fL (80.0-100.0); Mean Platelet Volume 8.9; Monocytes # (A) 0.4 k/uL (0-1.0); Monocytes % (A) 6 %; Neutrophils # (A) 4.1 k/uL (1.3-7.7); Neutrophils % (A) 65 %; Platelet Count 165 k/uL (150-450); RBC 4.74 m/uL (3.80-5.40); RDW 12.7 % (11.5-15.5); WBC 6.4 k/uL (3.8-10.6)
[2019-03-16 08:43] LABS: Calcium 9.2 mg/dL (8.4-10.2); Potassium 4.1 mmol/L (3.5-5.1)
[2019-03-16 09:44] LABS: Basophils # (A) 0.1 k/uL (0-0.2); Basophils % (A) 1 %; Eosinophils # (A) 0.2 k/uL (0-0.7); Eosinophils % (A) 3 %; HCT 38.3 % (34.0-46.0); HGB 12.6 gm/dL (11.4-16.0); Lymphocytes # (A) 1.2 k/uL (1.0-4.8); Lymphocytes % (A) 21 %; MCH 29.5 pg (25.0-35.0); MCV 89.5 fL (80.0-100.0); Mean Platelet Volume 9.8; Monocytes # (A) 0.4 k/uL (0-1.0); Monocytes % (A) 7 %; Neutrophils % (A) 67 %; Platelet Count 144 k/uL (150-450); RBC 4.27 m/uL (3.80-5.40); RDW 14.2 % (11.5-15.5)
[2019-03-16] MEDS ORDERED: LIDOCAINE 1% INJ 10MG/ML (20 ML MDV) ONE ×2 (11:42→12:23)
[2019-03-16] MEDS ORDERED: MIDAZOLAM (PF) 2 MG/2 ML VIAL IV ONE (12:20)
[2019-03-16] MEDS ORDERED: LIDOCAINE 1% INJ 10MG/ML (20 ML MDV) SQ ONE (12:21)
[2019-03-16] MEDS ORDERED: niCARdipine 25 MG/10 ML VIAL ONE (12:22)
[2019-03-16] MEDS ORDERED: fentaNYL (PF) 50 MCG/ML 2 ML AMP ONE (12:24)
[2019-03-16] MEDS: fentaNYL (PF) 50 MCG/ML 2 ML AMP IV ONE ×3 (12:24→13:03)
[2019-03-16] MEDS ORDERED: BIVALIRUDIN BOLUS 250 MG/50 ML IV ONE (12:35)
[2019-03-16] MEDS ORDERED: BIVALIRUDIN 250 MG in SODIUM CHLORIDE 0.9% 40 ML IV ONE (12:35)
[2019-03-16] MEDS: NITROGLYCERIN 1000MCG/10ML SYRINGE INTRACORON ONE ×2 (12:57→13:10)
[2019-03-16] MEDS: niCARdipine Syringe (1,000 mcg/10 mL) INTRACORON ONE ×2 (12:58→13:10)
[2019-03-16] MEDS ORDERED: CLOPIDOGREL 75 MG TAB ONE (13:00)
[2019-03-16] MEDS ORDERED: CLOPIDOGREL 75 MG TAB PO ONE (13:02)
[2019-03-16] MEDS ORDERED: IOPAMIDOL-370 125ML BTL INJ ONE (13:12)
[2019-03-16] MEDS ORDERED: ALPRAZolam 0.25 MG TAB PO PRN (13:31)
[2019-03-16] MEDS ORDERED: SODIUM CHLORIDE 0.9% 1,000 ML IV SCH (13:45)
--- NOTE | 2019-03-16 14:56 | PTCA ---
PERCUTANEOUSTRANS CORORONARY ANGIOGRAPHY DATE OF SERVICE: 03/16/2019 PERFORMING PHYSICIAN: Leonardo Treviño MD, Copy Camera Operator. PROCEDURE PERFORMED: 1. Atherectomy of the proximal left anterior descending artery using the orbital atherectomy device from [facility]. 2. Successful stenting of the proximal LAD went well the case successful stenting of the proximal LAD using a 3.25 x 15 mm Xience MACEY with an excellent angiographic results and reduction of stenosis from 99% to 0%. INDICATION: This is a 78-year-old female patient who sees Dr. Sow in the office as an outpatient with diabetes, hypertension, and dyslipidemia, was experiencing symptoms of short chest discomfort with exertion. She underwent a heart catheterization a few weeks ago and that revealed severe triple-vessel coronary artery disease. The patient was referred for surgery and she was turned down as a high risk for the surgery as she has no good targets. Because of that, she was brought today to undergo a PCI of the LAD. APPROACH: Right common femoral artery. COMPLICATION: None. LEVEL OF SEDATION: Moderate sedation length of 53 minutes. PROCEDURE DESCRIPTION: After obtaining an informed consent, the patient was brought to the cardiac quality assurance/r&d lab technician. The right common femoral artery was cannulated using micropuncture technique, the micropuncture wire passed easily. then I placed a 6-[place] sheath in the right common femoral artery. After that, I did start anticoagulation with Angiomax. I did engage the left main using XB 3.5 LAD guide. I did wire the LAD using a whisper wire and then I changed the Whisper wire into ViperWire using tele port catheter. After that I did atherectomy of the LAD using the orbital atherectomy device with 2 low-speed runs. After that, each run was for 30 seconds. After that I did balloon angioplasty using 2.5 x 12 mm, before I deployed 3.25 x 15 mm Xience MACEY where the stent was positioned under fluoroscopy guidance and deployed under its nominal pressure. The following angiogram showed good results and the procedure was completed without any complication. POSTPROCEDURE MANAGEMENT: 1. Dual anti-platelet therapy. 2. Risk factors modifications. 3. Follow up with the patient. MMODL / IJN: [id number] /
--- NOTE | 2019-03-16 14:56 | LTR ---
DATE OF SERVICE: March 16, 2019. RE: Glo Soriano Dear Dr. Sow; Ms. Glo Soriano underwent successful angioplasty and stenting of the LAD with good angiographic results and without any complication. I want to thank you for allowing us to participate in her care and please do not hesitate to call if you have any question or concern. Sincerely, MD NANCI Patel / DE: [phone] /
[2019-03-16] MEDS ORDERED: ATROPINE SULFATE 0.1 MG/ML 10ML SYRINGE ONE (17:05)
[2019-03-16] MEDS ORDERED: HYDROmorphone 1 MG/ML 1 ML SYRINGE IVP PRN (19:54)
[2019-03-16] MEDS ORDERED: HYDROmorphone 0.5 MG/0.5 ML SYRINGE IVP PRN (19:54)
[2019-03-16 20:11] LABS: Basophils # (A) 0.1 k/uL (0-0.2); Basophils % (A) 1 %; Eosinophils # (A) 0.1 k/uL (0-0.7); Eosinophils % (A) 2 %; HCT 34.4 % (34.0-46.0); HGB 11.5 gm/dL (11.4-16.0); Lymphocytes # (A) 1.2 k/uL (1.0-4.8); Lymphocytes % (A) 19 %; MCH 30.2 pg (25.0-35.0); MCHC 33.3 g/dL (31.0-37.0); MCV 90.5 fL (80.0-100.0); Mean Platelet Volume 8.8; Monocytes # (A) 0.3 k/uL (0-1.0); Monocytes % (A) 5 %; Neutrophils # (A) 4.5 k/uL (1.3-7.7); Neutrophils % (A) 71 %; Platelet Count 145 k/uL (150-450); RDW 13.4 % (11.5-15.5); WBC 6.4 k/uL (3.8-10.6)
[2019-03-16 20:52] LABS: Glucose,Whole Blood 144 mg/dL (75-99)
[2019-03-16] MEDS ORDERED: LISINOPRIL 5 MG TAB PO SCH (21:00)
[2019-03-16] MEDS ORDERED: LATANOPROST 0.005% OPHTH DROPS 2.5 ML BTL BOTH EYES SCH (21:00)
[2019-03-16] MEDS ORDERED: amLODIPine 10 MG TAB PO SCH (21:00)
[2019-03-16] MEDS ORDERED: METOPROLOL SUCCINATE (ER) 25 MG TAB.ER.24H PO SCH (21:00)
[2019-03-16 22:29] VITALS: RESP 16
[2019-03-17 06:06] LABS: Glucose,Whole Blood 127 mg/dL (75-99)
[2019-03-17] MEDS: SODIUM CHLORIDE 0.9% 1,000 ML IV SCH ×3 (08:39→09:01)
[2019-03-17] MEDS ORDERED: LINAGLIPTIN 5 MG TABLET PO SCH (09:00)
[2019-03-17] MEDS ORDERED: ISOSORBIDE MONONITRATE ER 30 MG TAB.ER.24H PO SCH (09:00)
[2019-03-17] MEDS ORDERED: EZETIMIBE 10 MG TAB PO SCH (09:00)
[2019-03-17] MEDS ORDERED: CLOPIDOGREL 75 MG TAB PO SCH (09:00)
[2019-03-17] MEDS ORDERED: LISINOPRIL 10 MG TAB PO SCH (09:00)
[2019-03-17] MEDS ORDERED: METOPROLOL SUCCINATE (ER) 50 MG TAB.ER.24H PO SCH (09:00)
[2019-03-17] MEDS ORDERED: DOCUSATE 100 MG CAP PO SCH (09:00)
[2019-03-17] MEDS ORDERED: ATORVASTATIN 10 MG TAB PO SCH (09:00)
[2019-03-17 09:05] LABS: Basophils # (A) 0.1 k/uL (0-0.2); Basophils % (A) 1 %; Eosinophils # (A) 0.2 k/uL (0-0.7); Eosinophils % (A) 2 %; HCT 34.4 % (34.0-46.0); HGB 11.9 gm/dL (11.4-16.0); Lymphocytes # (A) 1.4 k/uL (1.0-4.8); Lymphocytes % (A) 17 %; MCH 30.4 pg (25.0-35.0); MCHC 34.6 g/dL (31.0-37.0); Mean Platelet Volume 8.6; Monocytes # (A) 0.4 k/uL (0-1.0); Monocytes % (A) 4 %; Neutrophils # (A) 6.1 k/uL (1.3-7.7); Neutrophils % (A) 74 %; Platelet Count 155 k/uL (150-450); RBC 3.91 m/uL (3.80-5.40); RDW 13.7 % (11.5-15.5); WBC 8.3 k/uL (3.8-10.6)
[2019-03-17 09:11] LABS: Calcium 8.8 mg/dL (8.4-10.2)
--- NOTE | 2019-03-17 09:46 | DS ---
DISCHARGE SUMMARY ADMISSION DATE: 03/16/2019. DISCHARGE DATE: 03/17/2019. BRIEF HISTORY: This is a 78-year-old female patient who sees Dr. Sow in the office as an outpatient who was experiencing recently intermittent episodes of jaw pain and neck pain with exertion. In view of that, I did recommend proceeding with heart catheterization. It did reveal severe triple-vessel coronary artery disease with extremely calcified right and left coronary system. The patient was referred for coronary artery bypass grafting, but she was turned to be high risk for the surgery as well as no good targets to her bypasses. Because of that, she was brought yesterday and underwent successful atherectomy along with balloon angioplasty and stenting of the proximal left anterior descending artery which had disease about 99.9% with extremely calcified lesion. We did end up doing stenting using 3.25 x 15 mm Xience ES with an excellent angiographic results and without actual stenosis 99% to 0%. Postprocedure, the patient did develop a right groin hematoma on the floor, which was reduced with manual compression as well as Femstop. On follow up with her today, she is doing good. She is asymptomatic. The right groin is bruised and mildly tender, but there is no bruit heard. The patient is going to be discharged on dual anti-platelet therapy. She is intolerant to statin. I will follow up with her next week in the office. The hemoglobin did not drop after the hematoma. MMODL / IJN: [id number] /
[2019-03-17 11:07] VITALS: BP 147/65; PULSE 63; TEMP 96.7
[2019-03-18] MEDS ORDERED: ASPIRIN 81 MG PO SCH (09:00)
[2019-03-19] MEDS ORDERED: metFORMIN 500 MG TAB PO SCH (09:00)
== END 2019-03-17 11:00 | disposition home or self-care (01) ==
LOC: CATHCVL 06:56 → 3SCARD 14:14 → CATHCVL 03-17 11:00
PROVIDERS: ATTEND Internal Medicine Interventional Cardiology
DX: I25.119 Atherosclerotic heart disease of native coronary artery with unspecified angina pectoris (principal); I25.84 Coronary atherosclerosis due to calcified coronary lesion; I10 Essential (primary) hypertension; E11.9 Type 2 diabetes mellitus without complications; E78.5 Hyperlipidemia, unspecified
CPT/HCPCS: 80048 ×2; 82565; 85025 ×2; C9602; C1769 ×5; C1887; C1894; C1714; C1874; J2001; J0461; J3010; J0583; J1170; Q9967; J2250

== ENCOUNTER 2019-03-28 09:49 | Day surgery (SDC) | payer MEDICARE, BC ==
[~2019-03-28 09:49] MED LIST changes: -ASPIRIN 325 MG TAB PO STA; +ATORVASTATIN 80 MG TAB PO ONE; -ATORVASTATIN 80 MG TAB PO STA; -NITROGLYCERIN SL TABS 0.4 MG TAB SUBLINGUAL PRN; -SODIUM CHLORIDE 0.9% 1,000 ML in EMPTY BAG 1 BAG IV ONE
[2019-03-28 10:26] LABS: Glucose,Whole Blood 186 mg/dL (75-99)
[2019-03-28] MEDS ORDERED: SODIUM CHLORIDE 0.9% 1,000 ML in EMPTY BAG 1 BAG IV ONE (11:00)
[2019-03-28] MEDS: MIDAZOLAM (PF) 2 MG/2 ML VIAL IV ONE ×3 (12:08→13:01)
[2019-03-28] MEDS ORDERED: SODIUM CHLORIDE 0.9% 250 ML IV ONE (12:09)
[2019-03-28] MEDS: LIDOCAINE 1% INJ 10MG/ML (20 ML MDV) SQ ONE ×2 (12:09→12:14)
[2019-03-28] MEDS: VERAPAMIL SYRINGE (5 MG/10 ML) INTRAARTER ONE ×2 (12:14→13:31)
[2019-03-28] MEDS ORDERED: BIVALIRUDIN 250 MG in SODIUM CHLORIDE 0.9% 50 ML IV ONE (12:15)
[2019-03-28] MEDS ORDERED: BIVALIRUDIN BOLUS 250 MG/50 ML IV ONE (12:15)
[2019-03-28] MEDS ORDERED: HYDROmorphone 1 MG/ML 1 ML SYRINGE IVP ONE (13:09)
[2019-03-28] MEDS ORDERED: niCARdipine Syringe (1,000 mcg/10 mL) INTRAARTER ONE (13:10)
[2019-03-28] MEDS ORDERED: NITROGLYCERIN 1000MCG/10ML SYRINGE INTRACORON ONE (13:12)
[2019-03-28] MEDS ORDERED: MIDAZOLAM (PF) 2 MG/2 ML VIAL IV ONE (13:29)
[2019-03-28] MEDS ORDERED: IOPAMIDOL-370 125ML BTL INJ ONE (13:30)
[2019-03-28] MEDS ORDERED: CLOPIDOGREL 75 MG TAB PO ONE (13:43)
--- NOTE | 2019-03-28 14:05 | PTCA ---
PERCUTANEOUSTRANS CORORONARY ANGIOGRAPHY DATE OF SERVICE: 03/28/2019 PERFORMING PHYSICIAN: Leonardo Treviño MD, Shactor. PROCEDURE PERFORMED: 1. An atherectomy of the right coronary artery. 2. Successful stenting of the mid RCA using 2.0 x 15 mm [place] drug-eluting stent which was post-dilated using 2.5 mm balloon with an excellent angiographic results and reduction of stenosis from 90% to 0%. INDICATION: This is a 78-year-old female patient who was recently experiencing symptoms of angina and underwent a heart catheterization which revealed extremely calcified right and left coronary system with critical disease involving the LAD and the RCA. She underwent successful stenting of the LAD and she was brought today to undergo stenting of the right coronary artery. APPROACH: Right radial artery. COMPLICATION: None. LEVEL OF SEDATION: Moderate with sedation length of 95 minutes. PROCEDURE DESCRIPTION: After obtaining an informed consent, the patient was brought to the cardiac cathode maker. I did place transvenous temporary pacer from the left groin approach. Subsequently, I cannulated the right radial artery using micropuncture technique, the micropuncture wire passed easily, then I placed a 6-[place] sheath in the right radial artery. After that, I did start and give the patient 2 mg of verapamil IA and anticoagulation with Angiomax was initiated. After that, I did engage the right coronary artery using JR4 3.5 guide. I did wire the RCA using a long whisper wire. After that, I did exchange my Whisper wire into Viper Wire using patella port catheter. Subsequently, I did atherectomy of the right coronary artery using the orbital atherectomy device from [facility] on low rate time. After that, I did balloon angioplasty using 2.5 x 12 mm balloon before I deployed 2.0 x 15 mm [place] drug-eluting stent where the stent was positioned under fluoroscopy guidance and deployed under 18 atmospheres for 20 seconds. The stent was post dilated using 2.5 mm balloon. The following angiogram showed excellent results and the procedure was completed without any complication. POSTPROCEDURE MANAGEMENT: 1. Dual anti-platelet therapy. 2. Risk factors modifications. 3. Follow up with the patient. MMODL / IJN: [id number] /
[2019-03-28] MEDS ORDERED: ALPRAZolam 0.25 MG TAB PO PRN (18:58)
[2019-03-28] MEDS ORDERED: DOCUSATE 100 MG CAP PO PRN (18:58)
[2019-03-28] MEDS ORDERED: SODIUM CHLORIDE 0.9% 1,000 ML IV SCH (19:00)
[2019-03-28] MEDS ORDERED: MAG HYDROX/AL HYDROX/SIMETH 30 ML CUP PO PRN (19:00)
[2019-03-28] MEDS ORDERED: ATROPINE SULFATE 0.1 MG/ML 10ML SYRINGE IV PRN (19:00)
[2019-03-28] MEDS ORDERED: ZOLPIDEM 5 MG TAB PO PRN (19:00)
[2019-03-28] MEDS ORDERED: NITROGLYCERIN SL TABS 0.4 MG TAB SUBLINGUAL PRN (19:00)
[2019-03-28] MEDS ORDERED: RX INFO: IV CONTRAST WAS GIVEN 1 EACH MISC MISCELLANE PRN (19:00)
[2019-03-28 20:46] LABS: Glucose,Whole Blood 174 mg/dL (75-99)
[2019-03-28] MEDS ORDERED: ATORVASTATIN 10 MG TAB PO SCH (21:00)
[2019-03-28] MEDS ORDERED: EZETIMIBE 10 MG TAB PO SCH (21:00)
[2019-03-28] MEDS ORDERED: ASPIRIN 81 MG PO SCH (21:00)
[2019-03-28] MEDS ORDERED: LATANOPROST 0.005% OPHTH DROPS 2.5 ML BTL BOTH EYES SCH (21:00)
[2019-03-28] MEDS ORDERED: amLODIPine 10 MG TAB PO SCH (21:00)
[2019-03-29 05:22] VITALS: RESP 17
[2019-03-29 06:14] LABS: Glucose,Whole Blood 160 mg/dL (75-99)
[2019-03-29 06:44] LABS: Basophils % (A) 1 %; Eosinophils # (A) 0.3 k/uL (0-0.7); Eosinophils % (A) 4 %; HCT 33.2 % (34.0-46.0); HGB 10.9 gm/dL (11.4-16.0); Lymphocytes % (A) 13 %; MCH 29.8 pg (25.0-35.0); MCHC 32.9 g/dL (31.0-37.0); MCV 90.5 fL (80.0-100.0); Mean Platelet Volume 7.5; Monocytes # (A) 0.5 k/uL (0-1.0); Monocytes % (A) 7 %; Neutrophils # (A) 5.6 k/uL (1.3-7.7); Neutrophils % (A) 74 %; Platelet Count 162 k/uL (150-450); RBC 3.67 m/uL (3.80-5.40); WBC 7.6 k/uL (3.8-10.6)
[2019-03-29 06:47] VITALS: PULSE 65
[2019-03-29] MEDS ORDERED: METOPROLOL SUCCINATE (ER) 50 MG TAB.ER.24H PO SCH (09:00)
[2019-03-29] MEDS ORDERED: ISOSORBIDE MONONITRATE ER 30 MG TAB.ER.24H PO SCH (09:00)
[2019-03-29] MEDS ORDERED: LISINOPRIL 10 MG TAB PO SCH (09:00)
[2019-03-29] MEDS ORDERED: CLOPIDOGREL 75 MG TAB PO SCH (09:00)
[2019-03-29 10:11] VITALS: BMI 23.4
--- NOTE | 2019-03-29 10:21 | DS ---
DISCHARGE SUMMARY DATE OF ADMISSION: 03/28/2019 DATE OF DISCHARGE: 03/29/2019 BRIEF HISTORY: This is a 78-year-old female patient who underwent yesterday successful atherectomy and balloon angioplasty and stenting of the right coronary artery with an excellent angiographic results and reduction of stenosis from 99% to 0% from right radial approach. On followup with her today, she is doing good. She is asymptomatic. The right radial site is good and without any bruises. The left groin which was the access for transcutaneous pacer is looking good as well. She is going to be discharged home on dual antiplatelet therapy as well as a statin with . MMODL / IJN: [id number] /
[2019-03-29 11:54] LABS: Glucose,Whole Blood 170 mg/dL (75-99)
[2019-03-29 12:46] VITALS: BP 139/72; TEMP 98.3
[2019-03-29] MEDS ORDERED: METOPROLOL SUCCINATE (ER) 25 MG TAB.ER.24H PO SCH (18:30)
[2019-03-29] MEDS ORDERED: LISINOPRIL 5 MG TAB PO SCH (18:30)
== END 2019-03-29 13:02 | disposition home or self-care (01) ==
LOC: CATHCVL 09:49 → 3SCARD 15:28 → CATHCVL 03-29 13:02
PROVIDERS: ATTEND Internal Medicine Interventional Cardiology
DX: I25.10 Atherosclerotic heart disease of native coronary artery without angina pectoris (principal); I25.84 Coronary atherosclerosis due to calcified coronary lesion; Z95.5 Presence of coronary angioplasty implant and graft; E78.5 Hyperlipidemia, unspecified; I10 Essential (primary) hypertension; Z79.84 Long term (current) use of oral hypoglycemic drugs; Z79.02 Long term (current) use of antithrombotics/antiplatelets; Z79.82 Long term (current) use of aspirin; Z79.899 Other long term (current) drug therapy; Z88.6 Allergy status to analgesic agent; Z88.2 Allergy status to sulfonamides; Z82.49 Family history of ischemic heart disease and other diseases of the circulatory system
CPT/HCPCS: 92924; 80048; 85025; C1769 ×8; C1887 ×3; C1725 ×2; C1894 ×2; C1714; C1874; J2001; J1170; J0583; Q9967; J2250

== ENCOUNTER → 2019-05-17 | Outpatient (CLI) | payer MEDICARE, BC ==
[2019-05-17 13:19] LABS: Appearance,Urine Clear (Clear); Bilirubin,Urine Negative (Negative); Blood,Urine Trace (Negative); Color,Urine Yellow; Glucose,Urine (UA) Negative (Negative); Ketones,Urine Negative (Negative); Leukocyte Esterase,Urine Small (Negative); Mucus,Urine Rare /hpf; Nitrite,Urine Negative (Negative); PH, Urine 5.5 (5.0-8.0); Protein,Urine Trace (Negative); RBC,Urine 1 /hpf (0-5); Specific Gravity,Urine 1.016 (1.001-1.035); Urobilinogen,Urine <2.0 mg/dL (<2.0); WBC,Urine 5 /hpf (0-5)
[2019-05-17 14:19] LABS: Basophils # (A) 0.1 k/uL (0-0.2); Basophils % (A) 1 %; Eosinophils # (A) 0.2 k/uL (0-0.7); Eosinophils % (A) 2 %; Lymphocytes # (A) 1.9 k/uL (1.0-4.8); Lymphocytes % (A) 24 %; MCH 29.1 pg (25.0-35.0); MCHC 32.7 g/dL (31.0-37.0); MCV 89.2 fL (80.0-100.0); Mean Platelet Volume 11.2; Monocytes # (A) 0.4 k/uL (0-1.0); Monocytes % (A) 5 %; Neutrophils # (A) 5.1 k/uL (1.3-7.7); Neutrophils % (A) 67 %; Platelet Count 140 k/uL (150-450); RBC 4.82 m/uL (3.80-5.40); RDW 13.9 % (11.5-15.5); WBC 7.7 k/uL (3.8-10.6)
[2019-05-17 21:12] LABS: Iron Saturation 11.33 (12.00-45.00)
[2019-05-17 21:16] LABS: Vitamin D 25 Hydroxy 18.8 ng/mL (30.0-100.0)
[2019-05-17 21:38] LABS: African American GFR (CKD) 50.1 (60.0-200.0); BUN/Creat Ratio 23.33 Ratio (12.00-20.00); Calcium 9.6 mg/dL (8.7-10.3); Magnesium 1.8 mg/dL (1.5-2.4); Phosphorus 3.1 mg/dL (2.4-5.1); Potassium 4.7 mmol/L (3.5-5.5); Uric Acid 6.8 mg/dL (2.9-7.7)
== END | disposition home or self-care (01) ==
LOC: LABWHC1 12:22
PROVIDERS: ATTEND Nurse Practitioner Family
DX: N39.0 Urinary tract infection, site not specified (principal); E83.39 Other disorders of phosphorus metabolism; N25.81 Secondary hyperparathyroidism of renal origin; D63.1 Anemia in chronic kidney disease; N18.3 Chronic kidney disease, stage 3 (moderate); D50.9 Iron deficiency anemia, unspecified
CPT/HCPCS: 36415; 80048; 81001; 82306; 82728; 83540; 83550; 83735; 83970; 84100; 84550; 85025

== ENCOUNTER → 2019-09-12 | Outpatient (CLI) | payer MEDICARE, BC ==
[2019-09-12 13:05] LABS: Basophils % (A) 1 %; Eosinophils # (A) 0.2 k/uL (0-0.7); Eosinophils % (A) 2 %; HCT 43.7 % (34.0-46.0); HGB 14.4 gm/dL (11.4-16.0); Lymphocytes # (A) 1.6 k/uL (1.0-4.8); Lymphocytes % (A) 18 %; MCH 29.3 pg (25.0-35.0); MCV 88.9 fL (80.0-100.0); Mean Platelet Volume 8.6; Monocytes # (A) 0.4 k/uL (0-1.0); Monocytes % (A) 5 %; Neutrophils # (A) 6.4 k/uL (1.3-7.7); Neutrophils % (A) 73 %; Platelet Count 160 k/uL (150-450); RBC 4.92 m/uL (3.80-5.40); RDW 13.6 % (11.5-15.5); WBC 8.8 k/uL (3.8-10.6)
[2019-09-12 13:15] LABS: Appearance,Urine Clear (Clear); Bilirubin,Urine Negative (Negative); Blood,Urine Negative (Negative); Color,Urine Yellow; Glucose,Urine (UA) Trace (Negative); Hyaline Casts,Urine 4 /lpf (0-2); Ketones,Urine Negative (Negative); Leukocyte Esterase,Urine Small (Negative); Mucus,Urine Rare /hpf; Nitrite,Urine Negative (Negative); PH, Urine 5.5 (5.0-8.0); Protein,Urine Trace (Negative); RBC,Urine <1 /hpf (0-5); Specific Gravity,Urine 1.018 (1.001-1.035); Squamous Epithelial Cell,Urine 1 /hpf (0-4); Urobilinogen,Urine <2.0 mg/dL (<2.0); WBC,Urine 6 /hpf (0-5)
[2019-09-12 20:21] LABS: % Iron Saturation 29.09 (12.00-45.00); African American GFR (CKD) 50.1 (60.0-200.0); Albumin 4.2 g/dL (3.80-4.90); Anion Gap 10.7 mmol/L (4.00-12.00); Calcium 9.8 mg/dL (8.7-10.3); Carbon Dioxide 26.3 mmol/L (21.6-31.8); Magnesium 1.7 mg/dL (1.5-2.4); Non-African American GFR(CKD) 43.3 (60.0-200.0); Phosphorus 4.2 mg/dL (2.4-5.1); Potassium 4.4 mmol/L (3.5-5.5); Uric Acid 7.5 mg/dL (2.9-7.7)
[2019-09-12 20:31] LABS: Ferritin 26.1 ng/mL (10.0-291.0)
[2019-09-12 22:04] LABS: Creatinine,Urine Random 99.5 mg/dL
[2019-09-12 22:05] LABS: Total Protein,Urine Random 29.7 mg/dL (0.0-13.5)
== END | disposition home or self-care (01) ==
LOC: LABWHC1 11:09
PROVIDERS: ATTEND Internal Medicine Nephrology
DX: N18.3 Chronic kidney disease, stage 3 (moderate) (principal); N25.81 Secondary hyperparathyroidism of renal origin; D63.1 Anemia in chronic kidney disease; N39.0 Urinary tract infection, site not specified; M10.9 Gout, unspecified; R80.9 Proteinuria, unspecified
CPT/HCPCS: 36415; 80048; 81001; 82040; 82306; 82570; 82728; 83540; 83550; 83735; 83970; 84100; 84156; 84550; 85025

== ENCOUNTER → 2020-01-23 | Outpatient (CLI) | payer MEDICARE, BC | END | disposition home or self-care (01) | LOC: LABWHC1 09:38 | PROVIDERS: ATTEND Surgery | DX: U07.1 COVID-19 (principal) | CPT/HCPCS: 87635 ==

== ENCOUNTER 2020-01-25 13:15 | Day surgery (SDC) | payer MEDICARE, BC ==
[2020-01-24 13:51] VITALS: BMI 23.4
[~2020-01-25 13:15] MED LIST changes: +ACETAMINOPHEN TAB 500 MG TAB PO ONE; -ALPRAZolam 0.25 MG TAB PO PRN; -ALPRAZolam 0.5 MG TAB PO PRN; -ATORVASTATIN 80 MG TAB PO ONE; +DEXAMETHASONE SOD PHOSPHATE 10 MG/ML 1 ML VIAL IV ONE; +HEPARIN SODIUM,PORCINE 5,000 UNIT/ML 1 ML VIAL SQ ONE; +LACTATED RINGERS 1,000 ML IV SCH; +LIDOCAINE 1% (10MG/ML) FOR IV START INTRADERMA PRN; +METOCLOPRAMIDE 5 MG/ML 2 ML VIAL IVP PRN; +MORPHINE SULFATE 2 MG/ML SYRINGE IV PRN; +ONDANSETRON 4 MG/2 ML VIAL IVP ONE; +Pre Op ABX Message 1 EACH MISC MISCELLANE ONE
[2020-01-25 13:53] LABS: Glucose,Whole Blood 160 mg/dL (75-99)
--- NOTE | 2020-01-25 15:01 | P.GSHP ---
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 Patient rents today for wide local excision Past Medical History Past Medical History: Coronary Artery Disease (CAD), Cancer, Diabetes Mellitus, Eye Disorder, Hyperlipidemia, Hypertension, Osteoarthritis (OA), Renal Disease Additional Past Medical History / Comment(s): Hx Skin CA. Glaucoma. PAD. History of Any Multi-Drug Resistant Organisms: None Reported Past Surgical History: Adenoidectomy, Breast Surgery, Heart Catheterization, Heart Catheterization With Stent, Hysterectomy, Joint Replacement, Orthopedic Surgery, Tonsillectomy Additional Past Surgical History / Comment(s): left breast biopsy, laparoscopic via naval "to check ovaries and uterus", D & C, ANGIE [facility], LT Thumb joint replacement, bladder prolapse & repair, EGD, colonoscopy, bilateral eyelid surgery. 03/16/19 ARTHRETECTOMY LAD W/ STENT. Past Anesthesia/Blood Transfusion Reactions: Postoperative Nausea & Vomiting (PONV) Additional Past Anesthesia/Blood Transfusion Reaction / Comment(s): PONV X1. No hx blood transfusion Date of Last Stent Placement:: 03/28/2019 Smoking Status: Never smoker - Past Family History Mother Family Medical History: Cancer, Coronary Artery Disease (CAD), Hypertension Additional Family Medical History / Comment(s): CA: skin Father Family Medical History: Cancer, Coronary Artery Disease (CAD), Hypertension, Myocardial Infarction (MD) Additional Family Medical History / Comment(s): CA:skin Sister(s) Family Medical History: Coronary Artery Disease (CAD) Additional Family Medical History / Comment(s): CABG Brother(s) Family Medical History: Coronary Artery Disease (CAD), Myocardial Infarction (MD) Medications and Allergies Home Medications Medication Instructions Recorded Confirmed Type ALPRAZolam [Xanax] 0.25 mg PO DAILY PRN 12/12/15 01/25/20 History Aspirin [Adult Low Dose Aspirin EC] 81 mg PO HS 12/12/15 01/25/20 History Metoprolol Succinate [Toprol XL] 50 mg PO BID 12/12/15 01/25/20 History sitaGLIPtin PHOS/metFORMIN HCL 1 tab PO QAM 12/12/15 01/25/20 History [Janumet 50-500 mg Tablet] Latanoprost Ophth [Xalatan 0.005%] 1 drops BOTH EYES HS 01/07/16 01/25/20 History Benazepril [Lotensin] 20 mg PO QAM 02/22/19 01/25/20 History Docusate [Colace] 100 mg PO DAILY PRN #0 02/22/19 01/25/20 History Clopidogrel [Plavix] 75 mg PO DAILY 03/09/19 01/25/20 History Nitroglycerin 0.4 mg SL DIRECTED PRN 03/24/19 01/25/20 History metFORMIN HCL [Glucophage] 500 mg PO AC-SUPPER 03/24/19 01/25/20 History amLODIPine [Norvasc] 10 mg PO HS 03/29/19 01/25/20 History Cholecalciferol [Vitamin D3 (25 1,000 unit PO DAILY 01/24/20 01/25/20 History Mcg = 1000 Iu)] Ezetimibe [Zetia] 10 mg PO HS 01/24/20 01/25/20 History Allergies Allergy/AdvReac Type Severity Reaction Status Date / Time Sulfa (Sulfonamide Allergy Rash/Hives Verified 01/25/20 13:44 Antibiotics) ibuprofen [From Motrin] AdvReac "unable to Verified 01/25/20 13:44 get up out of bed" iron infusion Allergy Anaphylaxis Uncoded 01/25/20 13:44 Surgical - Exam Vital Signs Temp Pulse Resp BP Pulse Ox 97.7 F 58 L 16 188/82 95 01/25/20 13:45 01/25/20 13:45 01/25/20 13:45 01/25/20 13:45 01/25/20 13:45 - General well developed, well nourished, no distress - Eyes PERRL - ENT normal pinna - Neck no masses - Respiratory normal expansion - Cardiovascular Rhythm: regular - Abdomen Abdomen: soft, non tender - Integumentary 2 cm squamous cell carcinoma Results - Labs Abnormal Lab Results - Last 24 Hours (Table) 01/25/20 Range/Units 13:50 POC Glucose (mg/dL) 160 H (75-99) mg/dL Assessment and Plan Assessment: Squamous cell carcinoma right calf. We'll perform wide local excision
[2020-01-25] MEDS ORDERED: PROPOFOL 10 MG/ML 20 ML VIAL IV ONE (15:15)
[2020-01-25] MEDS ORDERED: fentaNYL (PF) 50 MCG/ML 2 ML AMP ONE (15:15)
[2020-01-25] MEDS ORDERED: LIDOCAINE 1% INJ 10MG/ML (20 ML MDV) ONE (15:15)
[2020-01-25] MEDS ORDERED: BUPIVACAIN-EPI 0.25%-1:200,000 30 ML VIAL SQ ONE ×3 (15:29→15:30)
[2020-01-25] MEDS ORDERED: NEOMYCIN-BACITRACIN-POLY OINT 1 APPLIC/EACH PACKET TOPICAL ONE (15:37)
--- NOTE | 2020-01-25 15:46 | P.OP ---
Date of Procedure: 01/25/20 Preoperative Diagnosis: Right calf squamous cell carcinoma Postoperative Diagnosis: Right Squamous cell carcinoma Procedure(s) Performed: Wide local excision of right Squamous cell carcinoma Anesthesia: YIFAN Surgeon: Vignesh John Estimated Blood Loss (ml): 5 Pathology: other (Squamous carcinoma right) Condition: stable Disposition: PACU Description of Procedure: The patient's placed the operative table in the lateral position. Her right calf was prepped and draped usual sterile fashion. The squamous cell carcinoma had been previously biopsied. The umbilical skin incision was made around the lesion. Lesion measured approximately 3.5 x 2.5 cm. The specimen was removed using left cautery. The superior portion of the specimen was tagged with a suture. The wound was then closed with 2-0 nylon suture. Sterile dressings applied. Patient top she will was sent to recovery in stable condition.
[2020-01-25 15:52] VITALS: TEMP 97.9
[2020-01-25 17:01] VITALS: BP 160/67; PULSE 78; RESP 18
== END 2020-01-25 17:02 | disposition home or self-care (01) ==
LOC: OR 13:15
PROVIDERS: ATTEND Surgery
DX: C44.722 Squamous cell carcinoma of skin of right lower limb, including hip (principal); I25.10 Atherosclerotic heart disease of native coronary artery without angina pectoris; E78.5 Hyperlipidemia, unspecified; I12.9 Hypertensive chronic kidney disease with stage 1 through stage 4 chronic kidney disease, or unspecified chronic kidney disease; E11.22 Type 2 diabetes mellitus with diabetic chronic kidney disease; N18.9 Chronic kidney disease, unspecified; F41.9 Anxiety disorder, unspecified; M19.90 Unspecified osteoarthritis, unspecified site; E11.39 Type 2 diabetes mellitus with other diabetic ophthalmic complication; H42 Glaucoma in diseases classified elsewhere; I73.9 Peripheral vascular disease, unspecified; Z90.89 Acquired absence of other organs; Z95.5 Presence of coronary angioplasty implant and graft; Z90.710 Acquired absence of both cervix and uterus; Z79.82 Long term (current) use of aspirin; Z79.84 Long term (current) use of oral hypoglycemic drugs; Z79.02 Long term (current) use of antithrombotics/antiplatelets; Z79.899 Other long term (current) drug therapy; Z88.2 Allergy status to sulfonamides; Z88.6 Allergy status to analgesic agent; Z88.8 Allergy status to other drugs, medicaments and biological substances; Z82.49 Family history of ischemic heart disease and other diseases of the circulatory system; Z80.8 Family history of malignant neoplasm of other organs or systems
CPT/HCPCS: 88305; 11604; J1100; J2405; J2001; J3010; J2704

== ENCOUNTER → 2020-01-30 | Outpatient (CLI) | payer MEDICARE, BC ==
--- NOTE | 2020-01-30 08:34 | CT ---
EXAMINATION TYPE: CT brain wo con for TPA DATE OF EXAM: 01/30/2020 COMPARISON: None HISTORY: Occipital neuralgia. Headache CT DLP: 296.4 mGycm Automated exposure control for dose reduction was used. TECHNIQUE: CT scan of the head is performed without contrast. FINDINGS: There is no acute intracranial hemorrhage or midline shift identified. There is diffuse v entricular and sulcal prominence consistent with diffuse age-related cerebral atrophy. There is low- attenuation in the periventricular white matter most commonly related to sequela of chronic small ves sabina ischemic. Extensive atherosclerosis of the intracranial vasculature seen. The globes are intact a nd the visualized sinuses are clear. IMPRESSION: 1. No acute intracranial hemorrhage or midline shift. Extensive atherosclerosis of the intracranial vasculature. 2. Diffuse age-related cerebral atrophy and nonspecific white matter change, most commonly on the bas is of chronic microangiopathy.
--- NOTE | 2020-01-30 08:34 | CT ---
EXAMINATION TYPE: CT soft tissue neck wo con DATE OF EXAM: 01/30/2020 HISTORY: Occipital neuralgia, headaches COMPARISON: NONE CT DLP: 296.4 mGycm. Automated Exposure Control for Dose Reduction was Utilized. TECHNIQUE: CT scan of the neck is performed without intravenous contrast, axial images are obtained, coronal and sagittal reformatted images are reviewed. FINDINGS: Airway: Narrowing of the posterior oropharynx by apposition of the tongue with soft palate, likely po sitional. Parotid/submandibular glands: No gross abnormality seen. Carotid/Vascular Structures: Limited evaluation by lack of intravenous contrast, however extensive at herosclerosis is seen of the vasculature particularly of the right carotid bulb and left vertebral ar brenna. Osseous Structures: There is multilevel uncovertebral hypertrophy and facet arthropathy with a curer foam rubber ior disc osteophyte complex at C5-C6 and grade 1 anterolisthesis of C4 on C5. On CT there appears to be only mild to moderate multilevel neural foraminal narrowing, however this could be better assessed with MRI. Calcification along the ligamentum flavum is seen at C6. Spinal canal is limited on CT. De generative disc disease is most pronounced at C5-C6. No vertebral body height loss identified. IMPRESSION: 1. Moderate multilevel degenerative disc disease of the cervical spine most pronounced at C5-C6 with grade 1 anterolisthesis of C4 and C5 that is likely on a degenerative basis. Degree of neural foramin al narrowing or assessment of disc herniation could be performed with MRI of the cervical spine. 2. Some narrowing of the posterior oropharynx is likely positional with relaxation of the tongue and tongue base posteriorly to oppose the soft palate and narrowing the airway. Correlate for sleep apnea . 3. Extensive atherosclerosis of the vasculature particularly of the right carotid bulb and left verte bral artery. CTA neck with contrast or ultrasound of the carotids could be considered for further ting luation.
== END | disposition home or self-care (01) ==
LOC: RADCTMAIN 07:39
PROVIDERS: ATTEND Internal Medicine
DX: G31.1 Senile degeneration of brain, not elsewhere classified (principal); R90.82 White matter disease, unspecified; I73.9 Peripheral vascular disease, unspecified; M54.81 Occipital neuralgia; Z88.2 Allergy status to sulfonamides; Z88.6 Allergy status to analgesic agent
CPT/HCPCS: 70450; 70490

== ENCOUNTER → 2020-02-28 | Outpatient (CLI) | payer MEDICARE, BC ==
[2020-02-28 15:06] LABS: Basophils # (A) 0.1 k/uL (0-0.2); Basophils % (A) 1 %; Eosinophils # (A) 0.2 k/uL (0-0.7); Eosinophils % (A) 2 %; HCT 43.4 % (34.0-46.0); Lymphocytes # (A) 1.6 k/uL (1.0-4.8); Lymphocytes % (A) 20 %; MCH 28.7 pg (25.0-35.0); MCHC 32.2 g/dL (31.0-37.0); Mean Platelet Volume 8.9; Monocytes # (A) 0.4 k/uL (0-1.0); Monocytes % (A) 5 %; Neutrophils # (A) 5.8 k/uL (1.3-7.7); Neutrophils % (A) 70 %; Platelet Count 182 k/uL (150-450); RBC 4.88 m/uL (3.80-5.40); RDW 13.2 % (11.5-15.5); WBC 8.2 k/uL (3.8-10.6)
[2020-02-28 16:22] LABS: Erythrocyte Sedimentation Rate 20 mm/hr (0-20)
== END | disposition home or self-care (01) ==
LOC: LABWHC1 14:37
PROVIDERS: ATTEND Physical Medicine & Rehabilitation
DX: M54.2 Cervicalgia (principal); R51 Headache
CPT/HCPCS: 36415; 85025; 85652; 86140

== ENCOUNTER → 2020-03-22 | Outpatient (CLI) | payer MEDICARE, BC ==
[2020-03-22 11:53] LABS: Basophils # (A) 0.1 k/uL (0-0.2); Basophils % (A) 1 %; Eosinophils # (A) 0.2 k/uL (0-0.7); Eosinophils % (A) 3 %; HCT 44.1 % (34.0-46.0); Lymphocytes # (A) 1.2 k/uL (1.0-4.8); Lymphocytes % (A) 19 %; MCH 28.9 pg (25.0-35.0); MCHC 31.7 g/dL (31.0-37.0); MCV 91.1 fL (80.0-100.0); Mean Platelet Volume 8.4; Monocytes # (A) 0.3 k/uL (0-1.0); Monocytes % (A) 5 %; Neutrophils # (A) 4.4 k/uL (1.3-7.7); Neutrophils % (A) 71 %; Platelet Count 164 k/uL (150-450); RBC 4.84 m/uL (3.80-5.40); RDW 13.3 % (11.5-15.5); WBC 6.2 k/uL (3.8-10.6)
[2020-03-22 11:58] LABS: Appearance,Urine Clear (Clear); Bilirubin,Urine Negative (Negative); Blood,Urine Negative (Negative); Color,Urine Yellow; Glucose,Urine (UA) Negative (Negative); Ketones,Urine Negative (Negative); Leukocyte Esterase,Urine Moderate (Negative); Mucus,Urine Rare /hpf; Nitrite,Urine Negative (Negative); PH, Urine 5.5 (5.0-8.0); Protein,Urine Trace (Negative); Specific Gravity,Urine 1.015 (1.001-1.035); Squamous Epithelial Cell,Urine <1 /hpf (0-4); Urobilinogen,Urine <2.0 mg/dL (<2.0); WBC,Urine 9 /hpf (0-5)
[2020-03-22 12:28] LABS: Protein/Creatinine Ratio,Urine 0.104
[2020-03-22 19:44] LABS: % Iron Saturation 24.18 (12.00-45.00); African American GFR (CKD) 49.8 (60.0-200.0); Albumin 3.9 g/dL (3.80-4.90); Anion Gap 9.2 mmol/L (4.00-12.00); Calcium 9.6 mg/dL (8.7-10.3); Carbon Dioxide 27.8 mmol/L (21.6-31.8); Magnesium 1.8 mg/dL (1.5-2.4); Non-African American GFR(CKD) 42.9 (60.0-200.0); Phosphorus 3.9 mg/dL (2.4-5.1); Potassium 4.3 mmol/L (3.5-5.5); Uric Acid 7.8 mg/dL (2.9-7.7)
[2020-03-22 19:52] LABS: Ferritin 37.1 ng/mL (10.0-291.0)
== END | disposition home or self-care (01) ==
LOC: LABWHC1 10:16
PROVIDERS: ATTEND Internal Medicine Nephrology
DX: E55.9 Vitamin D deficiency, unspecified (principal); N25.81 Secondary hyperparathyroidism of renal origin; M10.9 Gout, unspecified; N39.0 Urinary tract infection, site not specified; N18.3 Chronic kidney disease, stage 3 (moderate); D63.1 Anemia in chronic kidney disease; R80.9 Proteinuria, unspecified
CPT/HCPCS: 36415; 80048; 81001; 82040; 82306; 82570; 82728; 83540; 83550; 83735; 83970; 84100; 84156; 84550; 85025

== ENCOUNTER → 2020-04-17 | Outpatient (CLI) | payer MEDICARE, BC ==
--- NOTE | 2020-04-23 11:57 | MM ---
Reason for exam: screening (asymptomatic). Last mammogram was performed 1 year and 4 months ago. History: Patient is postmenopausal, history of other cancer, and is nulliparous. Family history of premenopausal breast cancer in sister at age 77, breast cancer in paternal cousin at age 45, and breast cancer in maternal aunt at age 74. Excisional biopsy of the left breast, 1981. Took estrogen for 10 years beginning at age 52. Took progesterone for 10 years beginning at age 52. Physical Findings: A clinical breast exam by your physician is recommended on an annual basis and results should be correlated with mammographic findings. MG 3D Screening Mammo W/Cad Bilateral CC and MLO view(s) were taken. Prior study comparison: December 18, 2018, bilateral MG 3d screening mammo w/cad. December 07, 2017, bilateral MG 3d screening mammo w/cad. The breast tissue is heterogeneously dense. This may lower the sensitivity of mammography. There are benign appearing round regional calcifications in the right breast. There is chronic nodularity in the left breast. There is no discrete abnormality. ASSESSMENT: Benign, BI-RAD 2 RECOMMENDATION: Routine screening mammogram of both breasts in 1 year.
== END | disposition home or self-care (01) ==
LOC: RADMAMWWP 15:21
PROVIDERS: ATTEND Internal Medicine
DX: Z12.31 Encounter for screening mammogram for malignant neoplasm of breast (principal); Z80.3 Family history of malignant neoplasm of breast
CPT/HCPCS: 77063; 77067

== ENCOUNTER → 2020-05-15 | Outpatient (CLI) | payer MEDICARE, BC | END | disposition home or self-care (01) | LOC: LABWHC1 11:46 | PROVIDERS: ATTEND Internal Medicine | DX: Z03.818 Encounter for observation for suspected exposure to other biological agents ruled out (principal) | CPT/HCPCS: U0003; C9803 ==

== ENCOUNTER 2020-06-22 10:38 | Emergency (ER) | payer MEDICARE, BC ==
[2020-06-22 10:48] VITALS: PULSE 64; RESP 18; TEMP 97.4
--- NOTE | 2020-06-22 11:18 | ED ---
General Adult HPI - General Chief complaint: Fall Stated complaint: Fall Time Seen by Provider: 06/22/20 10:47 Source: patient, EMS, RN notes reviewed, old records reviewed Mode of arrival: EMS - History of Present Illness Initial comments: Glo is a 79-year-old female who presents emergency Department today with complaints of head injury. Patient reports that she was playing pickleball on the court and tripped over her shoes and fell backwards striking her head. She states she then became nauseated abd dizzy. She complains of no loss of consciousness. She complains of some minor neck pain as well. No other injuries related to the fall. Pt is not on blood thinner. - Related Data Home Medications Medication Instructions Recorded Confirmed ALPRAZolam [Xanax] 0.25 mg PO BID PRN 12/12/15 06/22/20 Aspirin [Adult Low Dose Aspirin EC] 81 mg PO HS 12/12/15 06/22/20 Metoprolol Succinate [Toprol XL] 50 mg PO BID 12/12/15 06/22/20 sitaGLIPtin PHOS/metFORMIN HCL 1 tab PO DAILY 12/12/15 06/22/20 [Janumet 50-500 mg Tablet] Latanoprost Ophth [Xalatan 0.005%] 1 drops BOTH EYES HS 01/07/16 06/22/20 Benazepril [Lotensin] 20 mg PO QAM 02/22/19 06/22/20 Docusate [Colace] 100 mg PO DAILY PRN #0 02/22/19 06/22/20 metFORMIN HCL [Glucophage] 500 mg PO AC-SUPPER 03/24/19 06/22/20 amLODIPine [Norvasc] 10 mg PO HS 03/29/19 06/22/20 Cholecalciferol [Vitamin D3 (25 2,000 unit PO DAILY 01/24/20 06/22/20 Mcg = 1000 Iu)] Ezetimibe [Zetia] 10 mg PO HS 01/24/20 06/22/20 DULoxetine HCL [Cymbalta] 60 mg PO HS 06/22/20 06/22/20 Insulin Glargine,Hum.rec.anlog 10 unit SQ HS 06/22/20 06/22/20 [Lantus Solostar] Previous Rx's Medication Instructions Recorded Meclizine [Antivert] 25 mg PO TID #12 tab 06/22/20 Ondansetron Odt [Zofran Odt] 4 mg PO Q8HR PRN #12 tab 06/22/20 Allergies Allergy/AdvReac Type Severity Reaction Status Date / Time Sulfa (Sulfonamide Allergy Rash/Hives Verified 06/22/20 11:29 Antibiotics) ibuprofen [From Motrin] AdvReac "unable to Verified 06/22/20 11:29 get up out of bed" iron infusion Allergy Anaphylaxis Uncoded 01/25/20 13:44 Review of Systems ROS Statement: Those systems with pertinent positive or pertinent negative responses have been documented in the HPI. ROS Other: All systems not noted in ROS Statement are negative. Past Medical History Past Medical History: Coronary Artery Disease (CAD), Cancer, Diabetes Mellitus, Eye Disorder, Hyperlipidemia, Hypertension, Osteoarthritis (OA), Renal Disease Additional Past Medical History / Comment(s): Hx Skin CA. Glaucoma. PAD. History of Any Multi-Drug Resistant Organisms: None Reported Past Surgical History: Adenoidectomy, Breast Surgery, Heart Catheterization, Heart Catheterization With Stent, Hysterectomy, Joint Replacement, Orthopedic Surgery, Tonsillectomy Additional Past Surgical History / Comment(s): left breast biopsy, laparoscopic via naval "to check ovaries and uterus", D & C, [facility], LT Thumb joint replacement, bladder prolapse & repair, EGD, colonoscopy, bilateral eyelid surgery. 03/16/19 ARTHRETECTOMY LAD W/ STENT. Past Anesthesia/Blood Transfusion Reactions: Postoperative Nausea & Vomiting (PONV) Additional Past Anesthesia/Blood Transfusion Reaction / Comment(s): PONV X1. No hx blood transfusion Date of Last Stent Placement:: 03/28/2019 Past Psychological History: No Psychological Hx Reported Smoking Status: Never smoker Past Alcohol Use History: Rare Past Drug Use History: None Reported - Past Family History Mother Family Medical History: Cancer, Coronary Artery Disease (CAD), Hypertension Additional Family Medical History / Comment(s): CA: skin Father Family Medical History: Cancer, Coronary Artery Disease (CAD), Hypertension, Myocardial Infarction ([place]) Additional Family Medical History / Comment(s): CA:skin Sister(s) Family Medical History: Coronary Artery Disease (CAD) Additional Family Medical History / Comment(s): CABG Brother(s) Family Medical History: Coronary Artery Disease (CAD), Myocardial Infarction (SD) General Exam - General Exam Comments Initial Comments: 79-year-old female. Alert and oriented. No distress. General appearance: alert, in no apparent distress Head exam: Present: atraumatic, normocephalic, normal inspection, other (hematoma posterior scalp, no laceration. ) Eye exam: Present: normal appearance, PERRL, EOMI. Absent: scleral icterus, conjunctival injection, periorbital swelling ENT exam: Present: normal exam, mucous membranes moist Neck exam: Present: normal inspection. Absent: tenderness, meningismus, lymphadenopathy Respiratory exam: Present: normal lung sounds bilaterally. Absent: respiratory distress, wheezes, rales, rhonchi, stridor Cardiovascular Exam: Present: regular rate, normal rhythm, normal heart sounds. Absent: systolic murmur, diastolic murmur, rubs, gallop, clicks GI/Abdominal exam: Present: soft, normal bowel sounds. Absent: distended, tenderness, guarding, rebound, rigid Extremities exam: Present: normal inspection, full ROM, normal capillary refill. Absent: tenderness, pedal edema, joint swelling, calf tenderness Back exam: Present: normal inspection Neurological exam: Present: alert, oriented X3, CN II-XII intact Psychiatric exam: Present: normal affect, normal mood Skin exam: Present: warm, dry, intact, normal color. Absent: rash Course Vital Signs 06/22/20 06/22/20 06/22/20 10:42 12:03 12:40 Temperature 97.4 F L 97.4 F L Pulse Rate 64 64 64 Respiratory 18 18 18 Rate Blood Pressure 156/78 159/87 159/87 O2 Sat by Pulse 97 98 98 Oximetry Medical Decision Making - Medical Decision Making 79 year old female presents today for head injury while playing pickleball. Pt has hematoma on posterior scalp. No laceration. Pt has no acute neurological deficits, she does complain of dizziness and nausea. Pt CT is negative for acute process. Pt advised on head injury protocol and concussion instructions. discussed return parameters. - Radiology Data Radiology results: report reviewed fracture dislocation evident cervical spine. No acute intracranial hemorrhage mass effect or midline shift is seen. The large posterior extracranial subcutan eous hematoma. No fracture. Disposition Clinical Impression: Concussion Disposition: HOME SELF-CARE Condition: Good Instructions (If sedation given, give patient instructions): Concussion (ED) Additional Instructions: Please use medication as discussed. Please follow up with family doctor if symptoms have not improved over the next two days. Please return to the emergency room if your symptoms increase or worsen or for any other concerns. Prescriptions: Meclizine [Antivert] 25 mg PO TID #12 tab Ondansetron Odt [Zofran Odt] 4 mg PO Q8HR PRN #12 tab PRN Reason: Nausea Is patient prescribed a controlled substance at d/c from ED?: No Referrals: Becka Holder MD [Primary Care Provider] - 1-2 days Time of Disposition: 12:20
--- NOTE | 2020-06-22 11:52 | CT ---
EXAMINATION TYPE: CT brain cspine wo con DATE OF EXAM: 06/22/2020 COMPARISON: CT brain 01/30/2020 HISTORY: fall with posterior head trauma CT DLP: 1307.7 mGycm Automated exposure control for dose reduction was used. TECHNIQUE: CT scan of the head and cervical spine are performed without contrast. FINDINGS: There is no acute intracranial hemorrhage, mass effect, or midline shift identified. No extra-axial fluid collection. There is diffuse volume loss. Redemonstrated patchy white matter hypode nsities likely sequela of chronic microvascular ischemic change, not significantly changed from 2019 comparison. The ventricles and sulci are within normal limits in size. Redemonstrated marked ca lcified atherosclerotic disease of the intracranial vessels. There is a large extracranial right posterior percutaneous hematoma measuring up to 1.7 x 7.0 x 6.8 c m. No evidence of calvarial fracture. Visualized paranasal sinuses and mastoid air cells are clear. Cervical spine is visualized in its entirety from C1 through upper thoracic levels and demonstrates s atisfactory alignment without evidence of acute fracture or dislocation. Prevertebral soft tissue ap pears within normal limits. The C1-C2 articulation is unremarkable. Disc osteophyte complex with di sc space narrowing at C5-C6. Uncovertebral hypertrophy and facet arthropathy with varying degrees of neural foramina narrowing. IMPRESSION: 1. There is no acute fracture or dislocation evident in the cervical spine. 2. No acute intracranial hemorrhage, mass effect, or midline shift is seen. 3. Large right posterior extracranial subcutaneous hematoma. No calvarial fracture.
[2020-06-22] MEDS ORDERED: ACETAMINOPHEN TAB 500 MG TAB PO STA (11:54)
[2020-06-22] MEDS ORDERED: MECLIZINE 12.5 MG TAB PO STA (11:55)
[2020-06-22] MEDS: ONDANSETRON 4 MG/2 ML VIAL IVP STA ×2 (12:02→12:06)
[2020-06-22 12:04] VITALS: BP 159/87
== END 2020-06-22 12:41 | disposition home or self-care (01) ==
LOC: EC 10:38
DX: S06.0X0A Concussion without loss of consciousness, initial encounter (principal); I25.10 Atherosclerotic heart disease of native coronary artery without angina pectoris; E11.9 Type 2 diabetes mellitus without complications; E78.5 Hyperlipidemia, unspecified; I10 Essential (primary) hypertension; M19.90 Unspecified osteoarthritis, unspecified site; Z79.82 Long term (current) use of aspirin; Z79.84 Long term (current) use of oral hypoglycemic drugs; Z79.899 Other long term (current) drug therapy; Z95.5 Presence of coronary angioplasty implant and graft; Z96.692 Finger-joint replacement of left hand; Z85.828 Personal history of other malignant neoplasm of skin; Z88.2 Allergy status to sulfonamides; Z88.6 Allergy status to analgesic agent; Z91.048 Other nonmedicinal substance allergy status; Z80.8 Family history of malignant neoplasm of other organs or systems; W01.198A Fall on same level from slipping, tripping and stumbling with subsequent striking against other object, initial encounter; Y92.89 Other specified places as the place of occurrence of the external cause; Y93.73 Activity, racquet and hand sports
CPT/HCPCS: 70450; 72125; 99284

== ENCOUNTER 2020-08-16 09:30 | Day surgery (SDC) | payer MEDICARE, BC ==
[2020-08-15 12:37] VITALS: BMI 23.8
[2020-08-16 09:49] VITALS: PULSE 58; RESP 16; TEMP 97.3
[2020-08-16 09:57] VITALS: BP 216/105
--- NOTE | 2020-08-16 10:00 | P.PN ---
Progress Note - Text Progress Note Date: 08/16/20 She was scheduled for cervical epidural steroid injection with myself. She is a former patient of Dr. Mendez who is treating her with these injections. On arrival, patient's blood pressure was 220/110 and on repeat 206/134. Patient also said at the moment she is not having any pain. I discussed with the patient doing an injection in the cervical area with a blood pressure that high be very dangerous and could lead to complications. In general that blood pressure is very high and I advised her to seek care with her primary care provider to optimize antihypertensive medications. I did let her know that we can do the procedure another time when it is safe for her for a blood pressure standpoint and if she is having significant pain.
== END 2020-08-16 10:06 ==
LOC: ORPAIN 09:30
PROVIDERS: ATTEND Anesthesiology
DX: Z53.9 Procedure and treatment not carried out, unspecified reason (principal)

== ENCOUNTER 2020-09-10 14:18 | Emergency (ER) | payer MEDICARE, BC ==
[2020-09-10 14:24] VITALS: RESP 16; TEMP 97.9
[2020-09-10] MEDS ORDERED: SODIUM CHLORIDE 0.9% 500 ML 500 ML IV STA (14:45)
[2020-09-10] MEDS ORDERED: hydrALAZINE HCL 20 MG/ML 1 ML VIAL IVP STA (14:45)
--- NOTE | 2020-09-10 14:50 | ED ---
General Adult HPI - General Chief complaint: Recheck/Abnormal Lab/Rx Stated complaint: High BP Time Seen by Provider: 09/10/20 14:36 Source: patient, family, RN notes reviewed Mode of arrival: wheelchair Limitations: no limitations - History of Present Illness Initial comments: This a 79-year-old female presents emergency Department with chief complaint of hypertension. Patient has a long history of hypertension takes medications for this. Patient states that she is a physical therapy and she stated that she did not feel well after exercising so they checked her blood pressure was elevated. Patient has no chest pain or shortness breath no headache no dizziness no blurred vision no focal weakness. Denies any nausea vomiting. Patient has been states that she is acting her usual self. Patient offers no complaints. - Related Data Home Medications Medication Instructions Recorded Confirmed ALPRAZolam [Xanax] 0.25 mg PO BID PRN 12/12/15 08/15/20 Aspirin [Adult Low Dose Aspirin EC] 81 mg PO HS 12/12/15 08/15/20 Metoprolol Succinate [Toprol XL] 50 mg PO BID 12/12/15 08/15/20 sitaGLIPtin PHOS/metFORMIN HCL 1 tab PO DAILY 12/12/15 08/15/20 [Janumet 50-500 mg Tablet] Latanoprost Ophth [Xalatan 0.005%] 1 drops BOTH EYES HS 01/07/16 08/15/20 Benazepril [Lotensin] 20 mg PO QAM 02/22/19 08/15/20 Docusate [Colace] 100 mg PO DAILY PRN #0 02/22/19 08/15/20 metFORMIN HCL [Glucophage] 500 mg PO AC-SUPPER 03/24/19 08/15/20 amLODIPine [Norvasc] 10 mg PO HS 03/29/19 08/15/20 Cholecalciferol [Vitamin D3 (25 2,000 unit PO DAILY 01/24/20 08/15/20 Mcg = 1000 Iu)] Ezetimibe [Zetia] 10 mg PO HS 01/24/20 08/15/20 DULoxetine HCL [Cymbalta] 30 mg PO HS 06/22/20 08/15/20 Insulin Glargine,Hum.rec.anlog 10 unit SQ HS 06/22/20 08/15/20 [Lantus Solostar] Allergies Allergy/AdvReac Type Severity Reaction Status Date / Time Sulfa (Sulfonamide Allergy Rash/Hives Verified 08/15/20 11:59 Antibiotics) ibuprofen [From Motrin] AdvReac "unable to Verified 08/15/20 11:59 get up out of bed" iron infusion Allergy Anaphylaxis Uncoded 08/15/20 11:59 Review of Systems ROS Statement: Those systems with pertinent positive or pertinent negative responses have been documented in the HPI. ROS Other: All systems not noted in ROS Statement are negative. Past Medical History Past Medical History: Coronary Artery Disease (CAD), Cancer, Diabetes Mellitus, Eye Disorder, Hyperlipidemia, Hypertension, Osteoarthritis (OA), Renal Disease Additional Past Medical History / Comment(s): Hx Skin CA. Glaucoma. PAD. History of Any Multi-Drug Resistant Organisms: None Reported Past Surgical History: Adenoidectomy, Breast Surgery, Heart Catheterization, Heart Catheterization With Stent, Hysterectomy, Joint Replacement, Orthopedic Surgery, Tonsillectomy Additional Past Surgical History / Comment(s): left breast biopsy, laparoscopic via naval "to check ovaries and uterus", D & C, [facility], LT Thumb joint replacement, bladder prolapse & repair, EGD, colonoscopy, bilateral eyelid surgery. 03/16/19 ARTHRETECTOMY LAD W/ STENT.SKIN LESION REMOVED Past Anesthesia/Blood Transfusion Reactions: Postoperative Nausea & Vomiting (PONV) Additional Past Anesthesia/Blood Transfusion Reaction / Comment(s): PONV X1. No hx blood transfusion Date of Last Stent Placement:: 03/28/2019 Past Psychological History: No Psychological Hx Reported Smoking Status: Never smoker - Past Family History Mother Family Medical History: Cancer, Coronary Artery Disease (CAD), Hypertension Additional Family Medical History / Comment(s): CA: skin Father Family Medical History: Cancer, Coronary Artery Disease (CAD), Hypertension, Myocardial Infarction ([place]) Additional Family Medical History / Comment(s): CA:skin Sister(s) Family Medical History: Coronary Artery Disease (CAD) Additional Family Medical History / Comment(s): CABG Brother(s) Family Medical History: Coronary Artery Disease (CAD), Myocardial Infarction ([place]) General Exam Limitations: no limitations General appearance: alert, in no apparent distress Head exam: Present: atraumatic, normocephalic, normal inspection Neck exam: Present: normal inspection, full ROM. Absent: tenderness, meningismus, lymphadenopathy Respiratory exam: Present: normal lung sounds bilaterally. Absent: respiratory distress, wheezes, rales, rhonchi, stridor Cardiovascular Exam: Present: regular rate, normal rhythm, normal heart sounds. Absent: systolic murmur, diastolic murmur, rubs, gallop, clicks GI/Abdominal exam: Present: soft, normal bowel sounds. Absent: distended, tenderness, guarding, rebound, rigid Neurological exam: Present: alert, oriented X3 Skin exam: Present: warm, dry, intact, normal color. Absent: rash Course Vital Signs 09/10/20 09/10/20 09/10/20 14:19 15:01 15:14 Temperature 97.9 F Pulse Rate 66 60 Respiratory 16 16 Rate Blood Pressure 210/92 178/82 155/76 O2 Sat by Pulse 97 100 Oximetry EKG Findings - EKG Comments: EKG Findings:: EKG performed at 14:36 normal sinus rhythm rate of 62 OK 154 QRS 84 QT/QTC 390/401 Medical Decision Making - Medical Decision Making 79-year-old female presented for asymptomatic hypertension. Patient's blood pressure is improved. Labs are essentially unremarkable. Patient went to chest pain or shortness breath. Patient discharged in stable condition and advised to follow-up PCP about possible medication adjustment. - Lab Data Result diagrams: 09/10/20 14:46 09/10/20 14:46 Lab Results 09/10/20 09/10/20 09/10/20 Range/Units 14:46 14:46 14:46 WBC 7.9 (3.8-10.6) k/uL RBC 5.12 (3.80-5.40) m/uL Hgb 15.5 (11.4-16.0) gm/dL Hct 44.7 (34.0-46.0) % MCV 87.4 (80.0-100.0) fL MCH 30.4 (25.0-35.0) pg MCHC 34.7 (31.0-37.0) g/dL RDW 12.6 (11.5-15.5) % Plt Count 141 L (150-450) k/uL MPV 8.9 Neutrophils % 70 % Lymphocytes % 20 % Monocytes % 5 % Eosinophils % 3 % Basophils % 2 % Neutrophils # 5.5 (1.3-7.7) k/uL Lymphocytes # 1.6 (1.0-4.8) k/uL Monocytes # 0.4 (0-1.0) k/uL Eosinophils # 0.2 (0-0.7) k/uL Basophils # 0.1 (0-0.2) k/uL PT 9.8 (9.0-12.0) sec INR 0.9 (<1.2) APTT 21.3 L (22.0-30.0) sec Sodium 138 (137-145) mmol/L Potassium 4.3 (3.5-5.1) mmol/L Chloride 106 (98-107) mmol/L Carbon Dioxide 23 (22-30) mmol/L Anion Gap 9 mmol/L BUN 29 H (7-17) mg/dL Creatinine 1.17 H (0.52-1.04) mg/dL Est GFR (CKD-EPI)AfAm 51 (>60 ml/min/1.73 sqM) Est GFR (CKD-EPI)NonAf 44 (>60 ml/min/1.73 sqM) Glucose 111 H (74-99) mg/dL Calcium 9.8 (8.4-10.2) mg/dL Magnesium 1.7 (1.6-2.3) mg/dL Total Bilirubin 0.8 (0.2-1.3) mg/dL AST 27 (14-36) U/L ALT 13 (4-34) U/L Alkaline Phosphatase 60 (38-126) U/L Troponin I (0.000-0.034) ng/mL Total Protein 8.2 (6.3-8.2) g/dL Albumin 4.4 (3.5-5.0) g/dL 09/10/20 Range/Units 14:46 WBC (3.8-10.6) k/uL RBC (3.80-5.40) m/uL Hgb (11.4-16.0) gm/dL Hct (34.0-46.0) % MCV (80.0-100.0) fL MCH (25.0-35.0) pg MCHC (31.0-37.0) g/dL RDW (11.5-15.5) % Plt Count (150-450) k/uL MPV Neutrophils % % Lymphocytes % % Monocytes % % Eosinophils % % Basophils % % Neutrophils # (1.3-7.7) k/uL Lymphocytes # (1.0-4.8) k/uL Monocytes # (0-1.0) k/uL Eosinophils # (0-0.7) k/uL Basophils # (0-0.2) k/uL PT (9.0-12.0) sec INR (<1.2) APTT (22.0-30.0) sec Sodium (137-145) mmol/L Potassium (3.5-5.1) mmol/L Chloride (98-107) mmol/L Carbon Dioxide (22-30) mmol/L Anion Gap mmol/L BUN (7-17) mg/dL Creatinine (0.52-1.04) mg/dL Est GFR (CKD-EPI)AfAm (>60 ml/min/1.73 sqM) Est GFR (CKD-EPI)NonAf (>60 ml/min/1.73 sqM) Glucose (74-99) mg/dL Calcium (8.4-10.2) mg/dL Magnesium (1.6-2.3) mg/dL Total Bilirubin (0.2-1.3) mg/dL AST (14-36) U/L ALT (4-34) U/L Alkaline Phosphatase (38-126) U/L Troponin I <0.012 (0.000-0.034) ng/mL Total Protein (6.3-8.2) g/dL Albumin (3.5-5.0) g/dL Disposition Clinical Impression: Hypertension Disposition: HOME SELF-CARE Condition: Stable Instructions (If sedation given, give patient instructions): Hypertension (ED) Additional Instructions: Please return to the Emergency Department if symptoms worsen or any other concerns. Is patient prescribed a controlled substance at d/c from ED?: No Referrals: Becka Holder MD [Primary Care Provider] - 1-2 days Time of Disposition: 15:40
[2020-09-10 14:58] LABS: Basophils # (A) 0.1 k/uL (0-0.2); Basophils % (A) 2 %; Eosinophils # (A) 0.2 k/uL (0-0.7); Eosinophils % (A) 3 %; HCT 44.7 % (34.0-46.0); HGB 15.5 gm/dL (11.4-16.0); Lymphocytes # (A) 1.6 k/uL (1.0-4.8); Lymphocytes % (A) 20 %; MCH 30.4 pg (25.0-35.0); MCHC 34.7 g/dL (31.0-37.0); MCV 87.4 fL (80.0-100.0); Mean Platelet Volume 8.9; Monocytes # (A) 0.4 k/uL (0-1.0); Monocytes % (A) 5 %; Neutrophils # (A) 5.5 k/uL (1.3-7.7); Neutrophils % (A) 70 %; Platelet Count 141 k/uL (150-450); RBC 5.12 m/uL (3.80-5.40); RDW 12.6 % (11.5-15.5); WBC 7.9 k/uL (3.8-10.6)
[2020-09-10 15:02] VITALS: PULSE 60
[2020-09-10 15:07] LABS: Albumin 4.4 g/dL (3.5-5.0); Calcium 9.8 mg/dL (8.4-10.2); Magnesium 1.7 mg/dL (1.6-2.3); Potassium 4.3 mmol/L (3.5-5.1); Total Bilirubin 0.8 mg/dL (0.2-1.3); Total Protein 8.2 g/dL (6.3-8.2)
[2020-09-10 15:08] LABS: INR 0.9 (<1.2); Prothrombin Time 9.8 sec (9.0-12.0)
[2020-09-10 15:15] VITALS: BP 155/76
[2020-09-10 15:22] LABS: Partial Thromboplastin Time 21.3 sec (22.0-30.0)
== END 2020-09-10 16:00 | disposition home or self-care (01) ==
LOC: EC 14:18
DX: I10 Essential (primary) hypertension (principal); E11.39 Type 2 diabetes mellitus with other diabetic ophthalmic complication; H42 Glaucoma in diseases classified elsewhere; I25.10 Atherosclerotic heart disease of native coronary artery without angina pectoris; M19.90 Unspecified osteoarthritis, unspecified site; Z79.899 Other long term (current) drug therapy; Z79.4 Long term (current) use of insulin; Z79.82 Long term (current) use of aspirin; Z88.2 Allergy status to sulfonamides; Z88.8 Allergy status to other drugs, medicaments and biological substances; Z88.6 Allergy status to analgesic agent; Z96.692 Finger-joint replacement of left hand; Z85.828 Personal history of other malignant neoplasm of skin; Z95.5 Presence of coronary angioplasty implant and graft
CPT/HCPCS: 36415; 93005; 80053; 83735; 84484; 85025; 85610; 85730; 99283; 96374; 96361; J0360

== ENCOUNTER → 2020-09-15 | Outpatient (CLI) | payer MEDICARE, BC ==
--- NOTE | 2020-09-15 09:59 | MR ---
EXAMINATION TYPE: MR brain wo con DATE OF EXAM: 09/15/2020 COMPARISON: CT brain June 22, 2020 HISTORY: Falling, confusion, speech problems TECHNIQUE: Multiplanar, multisequence imaging of the brain and brainstem is performed without IV cont rast. FINDINGS: Diffusion weighted images demonstrate subtle area of increased signal on diffusion-weighted images wi th decreased signal ADC mapping in the right kaufman radiata image 152 series 305 for reference and sh ows T1 hypointensity and T2 hyperintensity consistent with evolving acute/subacute infarct. There is no worrisome extra-axial fluid collection diffuse ventricular and sulcal prominence. Focal a nd confluent areas of T2 hyperintensity seen throughout the deep and periventricular white matter sumeet aterally. T2*weighted images show no new suspicious intraparenchymal blood products. Midline structures demonstrate normal morphology. The craniocervical junction appears within normal limits. Normal vascular flow voids are present. The visualized sinuses are clear and the globes are i ntact. Nasal septum deviated to right of midline. IMPRESSION: 1. Small evolving acute/subacute lacunar infarct right kaufman radiata. 2. Background mild to moderate diffuse cerebral atrophy and moderate to advanced chronic small vessel ischemic changes.
== END | disposition home or self-care (01) ==
LOC: RADMRIMAIN 08:30
PROVIDERS: ATTEND Internal Medicine
DX: I67.82 Cerebral ischemia (principal); I63.81 Other cerebral infarction due to occlusion or stenosis of small artery
CPT/HCPCS: 70551

== ENCOUNTER → 2020-09-25 | Outpatient (CLI) | payer MEDICARE, BC ==
--- NOTE | 2020-09-25 14:54 | MR ---
EXAMINATION TYPE: MR angio head wo/neck wo/w con DATE OF EXAM: 09/25/2020 COMPARISON: MR brain 09/15/2020 HISTORY: Acute stroke, stenosis, headache TECHNIQUE: Time of flight images focusing on the [place] were performed without contrast.. 2-D and 3-D postprocessing imaging is performed. Pre and post contrast images obtained through the ne ck. Patient received 7 cc Gadavist IV, three-dimensional postprocessing performed on an alternate wor kstation. FINDINGS: [place] shows patent anterior posterior circulation. There is no evident aneurysm, embolus, or dissection. Persistent origin of the posterior cerebral artery noted on the right. Left vertebral artery is dominant. Suspect anterior cerebral artery variant on the right. There is no evident stenosis of the proximal internal carotid arteries by NASCET criteria. The common carotid, internal and external carotid arteries are patent. The innominate, left and right common ca rotid, left and right subclavian arteries centrally are patent. The neck MRA is not optimal due to te chnical issues. IMPRESSION: No evident internal carotid artery stenosis. Variant anatomy of the [place] of [place].
== END | disposition home or self-care (01) ==
LOC: RADMRIMAIN 08:44
PROVIDERS: ATTEND Psychiatry & Neurology Neurology
DX: I63.9 Cerebral infarction, unspecified (principal)
CPT/HCPCS: 70544; 70549; A9585

== ENCOUNTER → 2020-09-26 | Outpatient (CLI) | payer MEDICARE, BC ==
[2020-09-26 12:35] LABS: Basophils # (A) 0.1 k/uL (0-0.2); Basophils % (A) 1 %; Eosinophils # (A) 0.3 k/uL (0-0.7); Eosinophils % (A) 3 %; HCT 43.4 % (34.0-46.0); HGB 14.7 gm/dL (11.4-16.0); Lymphocytes # (A) 1.5 k/uL (1.0-4.8); Lymphocytes % (A) 19 %; MCH 30.3 pg (25.0-35.0); Mean Platelet Volume 9.2; Monocytes # (A) 0.4 k/uL (0-1.0); Monocytes % (A) 6 %; Neutrophils # (A) 5.6 k/uL (1.3-7.7); Neutrophils % (A) 71 %; Platelet Count 140 k/uL (150-450); RBC 4.87 m/uL (3.80-5.40); RDW 12.5 % (11.5-15.5); WBC 7.9 k/uL (3.8-10.6)
[2020-09-26 14:09] LABS: Appearance,Urine Clear (Clear); Bacteria,Urine Rare /hpf; Bilirubin,Urine Negative (Negative); Blood,Urine Negative (Negative); Color,Urine Light Yellow; Glucose,Urine (UA) Negative (Negative); Hyaline Casts,Urine 3 /lpf (0-2); Ketones,Urine Negative (Negative); Leukocyte Esterase,Urine Trace (Negative); Mucus,Urine Rare /hpf; Nitrite,Urine Negative (Negative); PH, Urine 6.5 (5.0-8.0); Protein,Urine Negative (Negative); RBC,Urine <1 /hpf (0-5); Specific Gravity,Urine 1.014 (1.001-1.035); Squamous Epithelial Cell,Urine <1 /hpf (0-4); Urobilinogen,Urine <2.0 mg/dL (<2.0); WBC,Urine 2 /hpf (0-5)
[2020-09-26 21:20] LABS: Ferritin 32.3 ng/mL (10.0-291.0)
[2020-09-26 22:32] LABS: % Iron Saturation 14.2 (12.00-45.00); African American GFR (CKD) 41.3 (60.0-200.0); Anion Gap 11.4 mmol/L (4.00-12.00); BUN/Creat Ratio 18.57 Ratio (12.00-20.00); Carbon Dioxide 28.6 mmol/L (21.6-31.8); Magnesium 1.6 mg/dL (1.5-2.4); Non-African American GFR(CKD) 35.6 (60.0-200.0); Phosphorus 3.7 mg/dL (2.4-5.1); Potassium 4.2 mmol/L (3.5-5.5); Uric Acid 9.6 mg/dL (2.9-7.7)
== END | disposition home or self-care (01) ==
LOC: LABWHC1 11:29
PROVIDERS: ATTEND Internal Medicine Nephrology
DX: N39.0 Urinary tract infection, site not specified (principal); N18.32 Chronic kidney disease, stage 3b; D63.1 Anemia in chronic kidney disease; N25.81 Secondary hyperparathyroidism of renal origin; E79.0 Hyperuricemia without signs of inflammatory arthritis and tophaceous disease; R80.9 Proteinuria, unspecified
CPT/HCPCS: 36415; 80048; 81001; 82306; 82728; 83540; 83550; 83735; 83970; 84100; 84550; 85025

== ENCOUNTER → 2021-04-29 | Outpatient (CLI) | payer MEDICARE, BC ==
--- NOTE | 2021-04-29 14:22 | US ---
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 CKD EXAM MEASUREMENTS: Right Kidney: 11.2 x 5.2 x 4.8 cm Left Kidney: 10.0 x 4.7 x 4.3 cm Right Kidney: Mildly dilated renal pelvis Left Kidney: Appeared wnl Bladder: wnl Bilateral Jets seen: Yes No nephrolithiasis. IMPRESSION: Stable mild prominence of the right renal pelvis unchanged from prior exam with no evidence of nephro lithiasis. Possibly related to a extrarenal pelvis.
== END | disposition home or self-care (01) ==
LOC: RADUSWWP 13:23
PROVIDERS: ATTEND Internal Medicine Nephrology
DX: N18.4 Chronic kidney disease, stage 4 (severe) (principal); N28.89 Other specified disorders of kidney and ureter
CPT/HCPCS: 76770

== ENCOUNTER 2021-05-17 07:03 | Day surgery (SDC) | payer MEDICARE, BC ==
[2021-05-15 11:45] VITALS: BMI 23.4
[~2021-05-17 07:03] MED LIST changes: -ACETAMINOPHEN TAB 500 MG TAB PO ONE; -DEXAMETHASONE SOD PHOSPHATE 10 MG/ML 1 ML VIAL IV ONE; -HEPARIN SODIUM,PORCINE 5,000 UNIT/ML 1 ML VIAL SQ ONE; -LIDOCAINE 1% (10MG/ML) FOR IV START INTRADERMA PRN; -METOCLOPRAMIDE 5 MG/ML 2 ML VIAL IVP PRN; -MORPHINE SULFATE 2 MG/ML SYRINGE IV PRN; -ONDANSETRON 4 MG/2 ML VIAL IVP ONE; -Pre Op ABX Message 1 EACH MISC MISCELLANE ONE
[2021-05-17] MEDS ORDERED: LIDOCAINE 1% (10MG/ML) FOR IV START INTRADERMA ONE (07:34)
[2021-05-17] MEDS ORDERED: PROPOFOL 10 MG/ML 20 ML VIAL IV ONE (07:35)
[2021-05-17] MEDS ORDERED: LIDOCAINE 1% INJ 10MG/ML (20 ML MDV) ONE (07:35)
[2021-05-17 07:38] VITALS: RESP 16; TEMP 98
[2021-05-17 07:40] LABS: Glucose,Whole Blood 85 mg/dL (75-99)
--- NOTE | 2021-05-17 07:52 | P.PCN ---
Date of Procedure: 05/17/21 Procedure(s) Performed: BRIEF HISTORY: Patient is a 80-year-old pleasant female scheduled for an elective colonoscopy as a part of intermittent rectal bleeding for the last few months duration. She has been on Plavix Xarelto for history of TIA and had extensive. Xarelto has been on hold for 2 weeks now. Plavix on hold for 5 days. He scheduled for colonoscopy to evaluate further. PROCEDURE PERFORMED: Colonoscopy with biopsy. PREOPERATIVE DIAGNOSIS: intermittent rectal bleeding. IV sedation per Anesthesia. PROCEDURE: After informed consent was obtained, the patient, was brought into the endoscopy unit. IV sedation was administered by Anesthesia under continuous monitoring. Digital rectal examination was normal. Initially the Olympus CF-160 flexible video colonoscope was then inserted in the rectum, gradually advanced into the cecum without any difficulty. Careful examination was performed as the scope was gradually being withdrawn. Ileocecal valve and the appendiceal orifice were visualized and appeared normal. Prep was excellent. Mucosa of the cecum, ascending colon, appeared normal. The transverse colon there was a 3 mm polyp that was removed by cold biopsy. Rest of the transverse colon, descending colon, sigmoid colon, and rectum appeared normal. Moderate sigmoid divert iculosis seen. Retroflexion was performed in the rectum and weight 2 internal hemorrhoids were seen. The patient tolerated the procedure well. IMPRESSION: 3 mm transverse colon polyp status post biopsy Moderate sigmoid diverticulosis Small internal hemorrhoids RECOMMENDATIONS: Findings of this examination were discussed with the patient as well as a family.. She was advised to be a high-fiber diet and take fiber supplements a regular basis and avoid straining and constipation. She can resume Plavix and Xarelto today.
[2021-05-17 08:16] VITALS: BP 169/82; PULSE 56
== END 2021-05-17 08:45 | disposition home or self-care (01) ==
LOC: ORWHC2ENDO 07:03
PROVIDERS: ATTEND Internal Medicine Gastroenterology
DX: K63.5 Polyp of colon (principal); K57.30 Diverticulosis of large intestine without perforation or abscess without bleeding; K64.8 Other hemorrhoids; K62.5 Hemorrhage of anus and rectum; I10 Essential (primary) hypertension; E78.5 Hyperlipidemia, unspecified; Z86.73 Personal history of transient ischemic attack (TIA), and cerebral infarction without residual deficits; I25.10 Atherosclerotic heart disease of native coronary artery without angina pectoris; Z95.5 Presence of coronary angioplasty implant and graft; Z79.02 Long term (current) use of antithrombotics/antiplatelets; Z79.01 Long term (current) use of anticoagulants; Z79.4 Long term (current) use of insulin
CPT/HCPCS: 45380; 88305; J2001; J2704

== ENCOUNTER → 2021-05-30 | Outpatient (CLI) | payer MEDICARE, BC ==
--- NOTE | 2021-05-31 11:42 | MM ---
Reason for exam: screening (asymptomatic). Last mammogram was performed 1 year and 1 month ago. History: Patient is postmenopausal, history of other cancer, and is nulliparous. Family history of premenopausal breast cancer in sister at age 77, breast cancer in paternal cousin at age 45, and breast cancer in maternal aunt at age 74. Excisional biopsy of the left breast, 1981. Took estrogen for 10 years beginning at age 52. Took progesterone for 10 years beginning at age 52. Physical Findings: A clinical breast exam by your physician is recommended on an annual basis and results should be correlated with mammographic findings. MG 3D Screening Mammo W/Cad Bilateral CC and MLO view(s) were taken. Prior study comparison: April 17, 2020, bilateral MG 3d screening mammo w/cad. December 18, 2018, bilateral MG 3d screening mammo w/cad. The breast tissue is heterogeneously dense. This may lower the sensitivity of mammography. Benign appearing bilateral calcifications. There is chronic nodularity bilaterally, stable. No significant changes when compared with prior studies. ASSESSMENT: Benign, BI-RAD 2 RECOMMENDATION: Routine screening mammogram of both breasts in 1 year.
== END | disposition home or self-care (01) ==
LOC: RADMAMWWP 12:37
PROVIDERS: ATTEND Internal Medicine
DX: Z12.31 Encounter for screening mammogram for malignant neoplasm of breast (principal); Z78.0 Asymptomatic menopausal state; Z80.3 Family history of malignant neoplasm of breast; Z85.9 Personal history of malignant neoplasm, unspecified; Z79.818 Long term (current) use of other agents affecting estrogen receptors and estrogen levels
CPT/HCPCS: 77063; 77067

== ENCOUNTER → 2021-06-24 | Outpatient (CLI) | payer MEDICARE, BC ==
[2021-06-24 12:29] LABS: Appearance,Urine Clear (Clear); Bilirubin,Urine Negative (Negative); Blood,Urine Negative (Negative); Color,Urine Yellow; Glucose,Urine (UA) Negative (Negative); Ketones,Urine Negative (Negative); Leukocyte Esterase,Urine Negative (Negative); Nitrite,Urine Negative (Negative); PH, Urine 5.5 (5.0-8.0); Protein,Urine Negative (Negative); Specific Gravity,Urine 1.016 (1.001-1.035); Urobilinogen,Urine <2.0 mg/dL (<2.0)
[2021-06-24 12:42] LABS: Creatinine,Urine Random 117.6 mg/dL; Protein/Creatinine Ratio,Urine 0.085
[2021-06-24 17:43] LABS: Basophils # (A) 0.06 X 10*3/uL (0.00-0.10); Basophils % (A) 0.9 %; Eosinophils # (A) 0.18 X 10*3/uL (0.04-0.35); Eosinophils % (A) 2.7 %; HGB 13.1 g/dL (12.0-15.0); Lymphocytes # (A) 1.75 X 10*3/uL (0.90-5.00); Lymphocytes % (A) 25.8 %; MCH 28.3 pg (27.0-32.0); MCV 88.6 fL (80.0-97.0); Mean Platelet Volume 13.5 fL (9.5-12.2); Monocytes # (A) 0.49 X 10*3/uL (0.20-1.00); Monocytes % (A) 7.2 %; Neutrophils % (A) 63.3 %; Platelet Count 127 X 10*3/uL (140-440); RBC 4.63 X 10*6/uL (4.10-5.20); WBC 6.79 X 10*3/uL (4.50-10.00)
[2021-06-25 15:44] LABS: % Iron Saturation 16.69 (12.00-45.00); African American GFR (CKD) 40.7 (60.0-200.0); Albumin 3.9 g/dL (3.8-4.9); Anion Gap 14.5 mmol/L (4.00-12.00); BUN/Creat Ratio 21.7 Ratio (12.00-20.00); Blood Urea Nitrogen 30.6 mg/dL (9.0-27.0); Calcium 9.6 mg/dL (8.7-10.3); Carbon Dioxide 21.4 mmol/L (21.6-31.8); Ferritin 42.8 ng/mL (10.0-291.0); Non-African American GFR(CKD) 35.1 (60.0-200.0); Phosphorus 4.2 mg/dL (2.4-5.1); Potassium 4.1 mmol/L (3.5-5.5); Uric Acid 6.7 mg/dL (2.9-7.7)
== END | disposition home or self-care (01) ==
LOC: LABWHC1 10:16
PROVIDERS: ATTEND Nurse Practitioner Family
DX: E55.9 Vitamin D deficiency, unspecified (principal); M10.9 Gout, unspecified; E21.3 Hyperparathyroidism, unspecified; N39.0 Urinary tract infection, site not specified; D64.9 Anemia, unspecified; R80.9 Proteinuria, unspecified
CPT/HCPCS: 36415; 80048; 81003; 82040; 82306; 82570; 82728; 83540; 83550; 83735; 83970; 84100; 84156; 84550; 85025

== ENCOUNTER → 2021-08-26 | Outpatient (CLI) | payer MEDICARE, BC ==
--- NOTE | 2021-08-26 16:13 | CT ---
EXAMINATION TYPE: CT abdomen pelvis wo con DATE OF EXAM: 08/26/2021 COMPARISON: Renal ultrasound 04/19/2021, CT 05/08/2012 HISTORY: Gross hematuria CT DLP: 321.5 mGycm Automated exposure control for dose reduction was used. TECHNIQUE: Helical acquisition of images from the lung bases through the pelvis. FINDINGS: Lack of intravenous contrast could compromise the exam. Coronary artery calcifications note d. There is an umbilical hernia containing fat. LUNG BASES: There is minimal dependent increased attenuation at the posterior right lung base. In the left. AORTA: Dense after describing calcifications are present within the aorta and splenic artery. LIVER/GB: There are dependent gallstones within the gallbladder. There are is low density present jamison ng the dome of the liver in the right lobe peripherally which shows a similar appearance to prior exa m, possible cyst. PANCREAS: No significant abnormality is seen. SPLEEN: Scattered calcifications likely are due to old granulomatous disease ADRENALS: No significant abnormality is seen. KIDNEYS: There are no renal stones or hydronephrosis, no ureteral calculi evident REPRODUCTIVE ORGANS: Uterus and adnexal structures are not seen URINARY BLADDER: Urinary bladder is not distended, suspect there is a cystocele present BOWEL: There is diverticular change especially in the sigmoid colon region, bowel wall thickening es pecially in the descending colon and sigmoid could be due to lack of distention, difficult to exclude a mucosal lesion, the appendix is normal FREE AIR: No Free Air is visible. ASCITES: None visible. PELVIC ADENOPATHY: None visualized. RETROPERITONEAL ADENOPATHY: No Retroperitoneal Adenopathy visible. OSSEOUS STRUCTURES: Degenerative disc changes present in the lumbar spine, there is some associated facet arthropathy IMPRESSION: POSSIBLE CYSTOCELE URINARY BLADDER. DIVERTICULOSIS AND FINDINGS IN THE COLON IS DESCRIBED. NO EVIDENT URETERAL OR RENAL STONE. NONCONTRAST EXAM. CHOLELITHIASIS. CORONARY ARTERY DISEASE. POSTOP CHANGE AN D ADDITIONAL FINDINGS ABOVE.
== END | disposition home or self-care (01) ==
LOC: RADCTMAIN 13:35
PROVIDERS: ATTEND Urology
DX: R31.0 Gross hematuria (principal); K57.30 Diverticulosis of large intestine without perforation or abscess without bleeding; K80.20 Calculus of gallbladder without cholecystitis without obstruction; I25.10 Atherosclerotic heart disease of native coronary artery without angina pectoris
CPT/HCPCS: 74176

== ENCOUNTER → 2022-03-13 | Outpatient (CLI) | payer MEDICARE ==
[2022-03-13 17:06] LABS: African American GFR (CKD) 40.7 (60.0-200.0); Albumin/Globulin Ratio 1.38 (1.60-3.17); BUN/Creat Ratio 14.71 Ratio (12.00-20.00); Blood Urea Nitrogen 20.6 mg/dL (9.0-27.0); Calcium 9.6 mg/dL (8.7-10.3); Globulin 2.9 g/dL (1.6-3.3); Magnesium 1.9 mg/dL (1.5-2.4); Non-African American GFR(CKD) 35.1 (60.0-200.0); Phosphorus 3.7 mg/dL (2.4-5.1); Potassium 4.1 mmol/L (3.5-5.5); Total Bilirubin 0.6 mg/dL (0.30-1.20); Total Protein 6.9 g/dL (6.2-8.2)
== END | disposition home or self-care (01) ==
LOC: LABWHC1 10:24
PROVIDERS: ATTEND Internal Medicine
DX: E11.22 Type 2 diabetes mellitus with diabetic chronic kidney disease (principal); R19.5 Other fecal abnormalities; R25.2 Cramp and spasm; N18.30 Chronic kidney disease, stage 3 unspecified
CPT/HCPCS: 36415; 80053; 82306; 82607; 82746; 83036; 83735; 83970; 84100

== ENCOUNTER → 2022-04-15 | Outpatient (CLI) | payer MEDICARE ==
[2022-04-15 11:18] LABS: Creatinine,Urine Random 190.7 mg/dL; Protein/Creatinine Ratio,Urine 0.231
[2022-04-15 14:42] LABS: % Iron Saturation 23.65 (12.00-45.00); African American GFR (CKD) 40.7 (60.0-200.0); Anion Gap 12.3 mmol/L (10.00-18.00); BUN/Creat Ratio 16.14 Ratio (12.00-20.00); Blood Urea Nitrogen 22.6 mg/dL (9.0-27.0); Calcium 9.6 mg/dL (8.7-10.3); Carbon Dioxide 25.7 mmol/L (20.0-27.5); Magnesium 1.9 mg/dL (1.5-2.4); Non-African American GFR(CKD) 35.1 (60.0-200.0); Potassium 4.2 mmol/L (3.5-5.5); Uric Acid 6.3 mg/dL (2.9-7.7)
[2022-04-15 15:07] LABS: Ferritin 36.8 ng/mL (10.0-291.0)
[2022-04-15 15:35] LABS: Basophils # (A) 0.07 X 10*3/uL (0.00-0.10); Eosinophils # (A) 0.19 X 10*3/uL (0.04-0.35); Eosinophils % (A) 2.7 %; HCT 45.5 % (37.2-46.3); HGB 14.6 g/dL (12.0-15.0); Immature Grans, Automated 0.3 %; Immature Platelet Fraction 25.4 % (1.1-6.1); Lymphocytes # (A) 1.56 X 10*3/uL (0.90-5.00); Lymphocytes % (A) 22.4 %; MCH 28.5 pg (27.0-32.0); MCHC 32.1 g/dL (32.0-37.0); MCV 88.9 fL (80.0-97.0); Mean Platelet Volume 14.3 fL (9.5-12.2); Monocytes # (A) 0.44 X 10*3/uL (0.20-1.00); Monocytes % (A) 6.3 %; NRBC Per 100 WBC 0 /100 WBCS (0.0-0.0); Neutrophils # (A) 4.67 X 10*3/uL (1.80-7.70); Neutrophils % (A) 67.3 %; Platelet Count 83 X 10*3/uL (140-440); RBC 5.12 X 10*6/uL (4.10-5.20); RBC Morphology NORMAL; RDW 13.3 % (11.5-14.5); WBC 6.95 X 10*3/uL (4.50-10.00)
[2022-04-15 17:05] LABS: Appearance,Urine Clear (Clear); Bilirubin,Urine Negative (Negative); Blood,Urine Negative (Negative); Color,Urine Yellow (Yellow); Ketones,Urine Trace mg/dL (Negative); Nitrite,Urine Negative (Negative); Specific Gravity,Urine 1.018 (1.001-1.030)
[2022-04-15 17:44] LABS: Bacteria,Urine None Seen /HPF (None Seen)
== END | disposition home or self-care (01) ==
LOC: LABWHC1 09:57
PROVIDERS: ATTEND Internal Medicine Nephrology
DX: N25.81 Secondary hyperparathyroidism of renal origin (principal); Z87.448 Personal history of other diseases of urinary system; E55.9 Vitamin D deficiency, unspecified; E61.1 Iron deficiency; M10.9 Gout, unspecified; R80.9 Proteinuria, unspecified; N18.32 Chronic kidney disease, stage 3b
CPT/HCPCS: 36415; 80048; 81001; 82040; 82306; 82570; 82728; 83540; 83550; 83735; 83970; 84100; 84156; 84550; 85025

== ENCOUNTER → 2022-06-12 | Outpatient (CLI) | payer MEDICARE ==
[2022-06-12 15:11] LABS: % Iron Saturation 18.63 (12.00-45.00); ALT 11 U/L (8-44); AST 21 U/L (13-35); African American GFR (CKD) 41.8 (60.0-200.0); Albumin 3.9 g/dL (3.8-4.9); Albumin/Globulin Ratio 1.28 (1.60-3.17); Alkaline Phosphatase 60 U/L (41-126); BUN/Creat Ratio 14.74 Ratio (12.00-20.00); Blood Urea Nitrogen 20.2 mg/dL (9.0-27.0); Calcium 9.4 mg/dL (8.7-10.3); Chloride 104 mmol/L (96-109); Globulin 3.1 g/dL (1.6-3.3); Glucose 118 mg/dL (70-110); Iron 65 ug/dL (50-170); LDL Cholesterol,Calculated 88.5 mg/dL (0.0-131.0); Non-African American GFR(CKD) 36.1 (60.0-200.0); Potassium 3.9 mmol/L (3.5-5.5); Sodium 142 mmol/L (135-145); Total Iron Binding Capacity 350 ug/dL (228-460)
[2022-06-12 17:07] LABS: Basophils # (A) 0.04 X 10*3/uL (0.00-0.10); Basophils % (A) 0.6 %; Eosinophils % (A) 3.2 %; HCT 42.6 % (37.2-46.3); HGB 14.1 g/dL (12.0-15.0); Immature Grans, Automated 0.3 %; Immature Platelet Fraction 18.8 % (1.1-6.1); Lymphocytes # (A) 1.67 X 10*3/uL (0.90-5.00); Lymphocytes % (A) 27.1 %; MCH 30.1 pg (27.0-32.0); MCHC 33.1 g/dL (32.0-37.0); Monocytes # (A) 0.41 X 10*3/uL (0.20-1.00); Monocytes % (A) 6.6 %; NRBC Per 100 WBC 0 /100 WBCS (0.0-0.0); Neutrophils # (A) 3.83 X 10*3/uL (1.80-7.70); Neutrophils % (A) 62.2 %; Platelet Count 73 X 10*3/uL (140-440); RBC 4.68 X 10*6/uL (4.10-5.20); RDW 12.8 % (11.5-14.5); WBC 6.17 X 10*3/uL (4.50-10.00)
== END | disposition home or self-care (01) ==
LOC: LABWHC1 09:22
PROVIDERS: ATTEND Internal Medicine
DX: E11.22 Type 2 diabetes mellitus with diabetic chronic kidney disease (principal); N18.30 Chronic kidney disease, stage 3 unspecified
CPT/HCPCS: 36415; 80053; 80061; 82607; 82746; 83036; 83540; 83550; 84443; 85025

== ENCOUNTER → 2022-06-24 | Outpatient (CLI) | payer MEDICARE ==
--- NOTE | 2022-06-25 09:46 | MM ---
Reason for Exam: Screening (asymptomatic). Last mammogram was performed 1 year(s) and 1 month(s) ago. Patient History: Menarche at age 13. Patient has no children. Hysterectomy at age 72. Postmenopausal. Other cancer. Estrogen for 10 years from age 52 until age 62. Progesterone for 10 years from age 52 until age 62. 1982, Excisional Biopsy on the Left side. Paternal cousin had breast cancer, age 45. Maternal aunt had breast cancer, age 74. Sister had breast cancer, age 77. Risk Values: Iris 5 year model risk: 3.7%. NCI Lifetime model risk: 5.4%. Prior Study Comparison: 12/18/2018 Bilateral Screening Mammogram, [facility]. 04/17/2020 Bilateral Screening Mammogram, [facility]. 05/30/2021 Bilateral Screening Mammogram, [facility]. Tissue Density: The breast tissue is heterogeneously dense. This may lower the sensitivity of mammography. Findings: Analyzed By CAD. There is no suspicious group of microcalcifications or new suspicious mass in either breast. Benign calcifications. Chronic nodularity left breast stable. Overall Assessment: Benign, BI-RAD 2 Management: Screening Mammogram of both breasts in 1 year. A clinical breast exam by your physician is recommended on an annual basis and results should be correlated with mammographic findings. Electronically signed and approved by: Mars Nation M.D. Radiologis
== END | disposition home or self-care (01) ==
LOC: RADMAMWWP 09:55
PROVIDERS: ATTEND Internal Medicine
DX: Z12.31 Encounter for screening mammogram for malignant neoplasm of breast (principal); Z78.0 Asymptomatic menopausal state; Z80.3 Family history of malignant neoplasm of breast; Z98.890 Other specified postprocedural states
CPT/HCPCS: 77063; 77067

== ENCOUNTER → 2022-10-01 | Outpatient (CLI) | payer MEDICARE ==
[2022-10-01 23:09] LABS: Appearance,Urine Clear (Clear); Bilirubin,Urine Negative (Negative); Blood,Urine Negative (Negative); Color,Urine Yellow (Yellow); Ketones,Urine Negative (Negative); Nitrite,Urine Negative (Negative); PH, Urine 6.5 (5.0-8.0); Specific Gravity,Urine 1.017 (1.001-1.030); Urobilinogen,Urine 0.2 (0.2,1.0)
[2022-10-01 23:25] LABS: Bacteria,Urine None Seen /HPF (None Seen)
[2022-10-02 14:27] LABS: Albumin 4.2 g/dL (3.8-4.9); Ferritin 37.7 ng/mL (10.0-291.0)
[2022-10-02 15:27] LABS: % Iron Saturation 21.66 (12.00-45.00); African American GFR (CKD) 43.7 (60.0-200.0); Anion Gap 13.2 mmol/L (10.00-18.00); BUN/Creat Ratio 16.52 Ratio (12.00-20.00); Blood Urea Nitrogen 21.8 mg/dL (9.0-27.0); Calcium 10.1 mg/dL (8.7-10.3); Carbon Dioxide 26.1 mmol/L (20.0-27.5); Magnesium 2.1 mg/dL (1.5-2.4); Non-African American GFR(CKD) 37.7 (60.0-200.0); Phosphorus 3.7 mg/dL (2.4-5.1); Potassium 4.1 mmol/L (3.5-5.5); Uric Acid 5.2 mg/dL (2.9-7.7)
== END | disposition home or self-care (01) ==
LOC: LABWHC1 14:23
PROVIDERS: ATTEND Internal Medicine Nephrology
DX: N25.81 Secondary hyperparathyroidism of renal origin (principal); N18.32 Chronic kidney disease, stage 3b; E61.1 Iron deficiency; E55.9 Vitamin D deficiency, unspecified; M10.9 Gout, unspecified; Z87.448 Personal history of other diseases of urinary system
CPT/HCPCS: 36415; 80048; 81001; 82040; 82306; 82728; 83540; 83550; 83735; 83970; 84100; 84550; 85025

== ENCOUNTER → 2022-10-02 | Outpatient (CLI) | payer MEDICARE ==
[2022-10-03 01:19] LABS: Basophils # (A) 0.06 X 10*3/uL (0.00-0.10); Basophils % (A) 0.8 %; Eosinophils # (A) 0.19 X 10*3/uL (0.04-0.35); Eosinophils % (A) 2.5 %; HCT 43.9 % (37.2-46.3); Immature Grans, Automated 0.1 %; Immature Platelet Fraction 16.8 % (1.1-6.1); Lymphocytes # (A) 2.15 X 10*3/uL (0.90-5.00); Lymphocytes % (A) 27.7 %; MCH 29.1 pg (27.0-32.0); MCHC 31.9 g/dL (32.0-37.0); MCV 91.3 fL (80.0-97.0); Mean Platelet Volume 13.8 fL (9.5-12.2); Monocytes # (A) 0.58 X 10*3/uL (0.20-1.00); Monocytes % (A) 7.5 %; NRBC Per 100 WBC 0 /100 WBCS (0.0-0.0); Neutrophils # (A) 4.76 X 10*3/uL (1.80-7.70); Neutrophils % (A) 61.4 %; Platelet Count 76 X 10*3/uL (140-440); RBC 4.81 X 10*6/uL (4.10-5.20); RDW 13.2 % (11.5-14.5); WBC 7.75 X 10*3/uL (4.50-10.00)
== END | disposition home or self-care (01) ==
LOC: LABWHC1 15:40
PROVIDERS: ATTEND Internal Medicine Nephrology
DX: E61.1 Iron deficiency (principal)
CPT/HCPCS: 36415; 85025

== ENCOUNTER → 2022-12-30 | Outpatient (CLI) | payer MEDICARE ==
--- NOTE | 2022-12-30 10:38 | US ---
EXAMINATION TYPE: US abdomen complete DATE OF EXAM: 12/30/2022 COMPARISON: CT August 26, 2021 and older studies CLINICAL INDICATION: Female, 82 years old with history of N18.9 KIDNEY DISEASE, K76.9 LIVER DISEASE; Abnormal labs TECHNIQUE: Multiple sonographic images of the abdomen are obtained. FINDINGS: EXAM MEASUREMENTS: Liver Length: 13.4 cm Gallbladder Wall: 0.2 cm CBD: 0.3 cm Spleen: 9.7 cm Right Kidney: 10.0 x 4.4 x 4.8 cm Left Kidney: 9.0 x 4.7 x 4.1 cm COMPASS OPERATOR NOTES: Pancreas: wnl Liver: Possible isoechoic, sold lesion right lobe near dome= 1.8 x 1.6 x 2.5 cm- ?visualized on CT Gallbladder: Multiple gallstones as visualized on CT Evidence for sonographic Land's sign: No CBD: wnl Spleen: Multiple granulomas Right Kidney: wnl, lower pole gassed out Left Kidney: wnl, lower pole gassed out Upper IVC: wnl Abd Aorta: Wall calcifications, no evidence of AAA The visualized portions of the pancreas are homogenous. No aneurysmal change and visualized abdominal aorta. IVC seen near hepatic dome. Visualized liver shows technologist marking 2.5 cm isoechoic area may correspond to the hypodense area near the hepatic dome which is stable from 2012 study study pre sumed benign. Second smaller hypodense lesion in the right hepatic lobe is also stable from 2012 not clearly seen on today's ultrasound. Numerous mobile shadowing gallstones and gallbladder redemonstrat ed. No abnormal wall thickening or pericholecystic fluid. The spleen has punctate calcifications cons istent with old granulomatous disease redemonstrated. Kidneys are symmetric and free of hydronephros is. No renal lesions are seen. Cortical thinning in both kidneys is noted. IMPRESSION: Hypodense Lesions on recent CT in the liver are not as well seen on ultrasound but stable from 2012 and thus presumed benign.
== END | disposition home or self-care (01) ==
LOC: RADUSWWP 08:56
PROVIDERS: ATTEND Internal Medicine Hematology & Oncology
DX: K76.9 Liver disease, unspecified (principal); D69.59 Other secondary thrombocytopenia; D69.49 Other primary thrombocytopenia; E11.22 Type 2 diabetes mellitus with diabetic chronic kidney disease; N18.9 Chronic kidney disease, unspecified; I10 Essential (primary) hypertension
CPT/HCPCS: 76700

== ENCOUNTER → 2023-01-13 | Outpatient (CLI) | payer MEDICARE ==
--- NOTE | 2023-01-14 18:11 | MR ---
EXAMINATION TYPE: MR angio head wo con DATE OF EXAM: 01/13/2023 COMPARISON: 09/25/2020 HISTORY: 82-year-old female I65.29, H93.13, Pulsatile tinnitus, whoosh in head mostly at night TECHNIQUE: High-resolution 3-D [id number] imaging of the [place]. No contrast was admini stered. Rotational 3-D reconstructions generated on a dedicated PET workstation. FINDINGS: Redemonstrated dominant left vertebral artery. Both vertebral and basilar arteries show preserved yarelis w related enhancement. There is redemonstration normal variation with persistent origin right posterior cerebral arter y. There is mild to moderate atherosclerotic irregularity throughout the P2 and more distal branches of the bilateral posterior cerebral arteries. The internal carotid arteries are patent. Right paramedian positioning of the right anterior cerebral artery with a long anterior communicating artery redemonstrated. Otherwise, the anterior circulation appears patent. There is no moderate athe rosclerotic narrowing of the distal M1 segment right MCA. No aneurysmal change is seen. IMPRESSION: 1. Redemonstrated anatomic variation: 2. Dominant left vertebral artery, 3. Persistent origin right posterior cerebral artery. 4. Right paramedian positioning of the right anterior cerebral artery with a long anterior communicat ing artery. 5. Mild to moderate atherosclerotic irregularity throughout the P2 and more distal branches of the bi lateral clinical trial head. 6. New moderate segmental stenosis distal M1 segment right MCA. 7. No large vessel intracranial arterial occlusion, significant stenosis, or aneurysmal change is see n.
--- NOTE | 2023-01-14 18:22 | MR ---
EXAMINATION TYPE: MR angio neck wo/w con DATE OF EXAM: 01/13/2023 COMPARISON: 09/25/2020 HISTORY: 82-year-old female I65.29, H93.13, Carotid intracranial stenosis Technique: 2-D and 3-D [id number] imaging of the neck vasculature with rotational 3-D reconstruct ions generated. Subsequent coronal and postcontrast scanning of the neck utilizing 6 mL intravenous G adavist gadolinium contrast. Subtraction images and 3-D reconstructions are performed. FINDINGS: Slightly dominant left vertebral artery. Both vertebral arteries are patent throughout the course. The bilateral common and internal carotid arteries are widely patent without any significant narrowin g. We are able to visualize a severe focal stenosis of the M1 segment right MCA on the postcontrast imag es. IMPRESSION: 1. Widely patent vertebral and carotid arteries of the neck. 2. New severe focal stenosis M1 segment right MCA on the postcontrast images.
== END | disposition home or self-care (01) ==
LOC: RADMRIMAIN 13:20
PROVIDERS: ATTEND Psychiatry & Neurology Neurology
DX: I65.23 Occlusion and stenosis of bilateral carotid arteries (principal); H93.13 Tinnitus, bilateral
CPT/HCPCS: 70544; 70549; A9585

== ENCOUNTER → 2023-02-03 | Outpatient (CLI) | payer MEDICARE ==
[2023-02-03 17:45] LABS: Creatinine,Urine Random 42.5 mg/dL
[2023-02-03 18:38] LABS: Protein/Creatinine Ratio,Urine 0.518
[2023-02-03 19:27] LABS: Appearance,Urine Clear (Clear); Bilirubin,Urine Negative (Negative); Blood,Urine Negative (Negative); Color,Urine Yellow (Yellow); Ketones,Urine Negative (Negative); Nitrite,Urine Negative (Negative); Urobilinogen,Urine 0.2 (0.2,1.0)
[2023-02-03 20:28] LABS: % Iron Saturation 22.02 (12.00-45.00); Albumin 3.6 g/dL (3.8-4.9); Ferritin 29.5 ng/mL (10.0-291.0)
[2023-02-03 20:29] LABS: African American GFR (CKD) 47.8 (60.0-200.0); Anion Gap 12.7 mmol/L (10.00-18.00); BUN/Creat Ratio 21.97 Ratio (12.00-20.00); Blood Urea Nitrogen 26.8 mg/dL (9.0-27.0); Calcium 9.2 mg/dL (8.7-10.3); Carbon Dioxide 21.6 mmol/L (20.0-27.5); Non-African American GFR(CKD) 41.2 (60.0-200.0); Potassium 4.3 mmol/L (3.5-5.5); Uric Acid 4.5 mg/dL (2.9-7.7)
[2023-02-03 20:59] LABS: Basophils # (A) 0.05 X 10*3/uL (0.00-0.10); Basophils % (A) 0.8 %; Eosinophils # (A) 0.21 X 10*3/uL (0.04-0.35); Eosinophils % (A) 3.2 %; HCT 43.6 % (37.2-46.3); HGB 14.1 g/dL (12.0-15.0); Immature Grans, Automated 0.3 %; Lymphocytes # (A) 1.68 X 10*3/uL (0.90-5.00); Lymphocytes % (A) 25.6 %; MCH 29.7 pg (27.0-32.0); MCHC 32.3 g/dL (32.0-37.0); Mean Platelet Volume 14.1 fL (9.5-12.2); Monocytes # (A) 0.42 X 10*3/uL (0.20-1.00); Monocytes % (A) 6.4 %; NRBC Per 100 WBC 0 /100 WBCS (0.0-0.0); Neutrophils # (A) 4.17 X 10*3/uL (1.80-7.70); Neutrophils % (A) 63.7 %; Platelet Count 77 X 10*3/uL (140-440); RBC 4.74 X 10*6/uL (4.10-5.20); RDW 13.2 % (11.5-14.5); WBC 6.55 X 10*3/uL (4.50-10.00)
[2023-02-03 21:00] LABS: Immature Platelet Fraction 21.7 % (1.1-6.1); RBC Morphology NORMAL
== END | disposition home or self-care (01) ==
LOC: LABWHC1 15:38
PROVIDERS: ATTEND Nurse Practitioner Family
DX: N25.81 Secondary hyperparathyroidism of renal origin (principal); E61.1 Iron deficiency; N18.32 Chronic kidney disease, stage 3b; E55.9 Vitamin D deficiency, unspecified; M10.9 Gout, unspecified; Z87.448 Personal history of other diseases of urinary system; R80.9 Proteinuria, unspecified
CPT/HCPCS: 36415; 80048; 81003; 82040; 82306; 82570; 82728; 83540; 83550; 84156; 84550; 85025

== ENCOUNTER → 2023-06-03 | Outpatient (CLI) | payer MEDICARE ==
[2023-06-03 16:18] LABS: Appearance,Urine Clear (Clear); Bilirubin,Urine Negative (Negative); Blood,Urine Small (Negative); Color,Urine Yellow (Yellow); Ketones,Urine Negative (Negative); Nitrite,Urine Negative (Negative); Specific Gravity,Urine 1.025 (1.001-1.030)
[2023-06-03 16:32] LABS: Bacteria,Urine None Seen (None Seen)
[2023-06-03 16:33] LABS: Calcium Oxalate Crystals,Urine Present (None Seen)
[2023-06-03 17:31] LABS: Basophils # (A) 0.04 X 10*3/uL (0.00-0.10); Basophils % (A) 0.6 %; Eosinophils # (A) 0.12 X 10*3/uL (0.04-0.35); Eosinophils % (A) 1.7 %; HCT 50.2 % (37.2-46.3); HGB 16.4 d/dL (12.0-15.0); Immature Platelet Fraction 17.7 % (1.1-6.1); Lymphocytes # (A) 1.43 X 10*3/uL (0.90-5.00); Lymphocytes % (A) 19.7 %; MCH 29.5 pg (27.0-32.0); MCHC 32.7 d/dL (32.0-37.0); MCV 90.3 FL (80.0-97.0); Mean Platelet Volume 12.6 FL (9.5-12.2); Monocytes # (A) 0.45 X 10*3/uL (0.20-1.00); Monocytes % (A) 6.2 %; NRBC Per 100 WBC 0 X 10*3/uL (0.00-0.01); Neutrophils # (A) 5.22 X 10*3/uL (1.80-7.70); Neutrophils % (A) 71.7 %; Platelet Count 87 X 10*3/uL (140-440); RBC 5.56 X 10*6/uL (4.10-5.20); WBC 7.27 X 10*3/uL (4.50-10.00)
[2023-06-03 19:43] LABS: % Iron Saturation 17.31 (12.00-45.00); BUN/Creat Ratio 16.57 Ratio (12.00-20.00); Blood Urea Nitrogen 23.2 mg/dL (9.0-27.0); Calcium 9.4 mg/dL (8.7-10.3); Carbon Dioxide 21.5 mmol/L (21.6-31.8); Chloride 105 mmol/L (96-109); Ferritin 33.9 ng/mL (10.0-291.0); Glucose 164 mg/dL (70-110); Iron 63 UG/DL (50-170); Magnesium 1.9 mg/dL (1.5-2.4); Phosphorus 3.6 mg/dL (2.4-5.1); Sodium 140 mmol/L (135-145); Total Iron Binding Capacity 364 UG/DL (228-460); Uric Acid 4.8 mg/dL (2.9-7.7)
== END | disposition home or self-care (01) ==
LOC: LABWHC1 10:40
PROVIDERS: ATTEND Internal Medicine Nephrology
DX: N18.32 Chronic kidney disease, stage 3b (principal)
CPT/HCPCS: 36415; 80048; 81001; 82040; 82043; 82306; 82570; 82728; 83540; 83550; 83735; 83970; 84100; 84550; 85025

== ENCOUNTER 2023-08-18 16:53 | Emergency (ER) | payer MEDICARE ==
--- NOTE | 2023-08-18 17:30 | ED ---
Female Urogenital HPI - General Chief complaint: Urogenital Stated complaint: Blood in Urine Time Seen by Provider: 08/18/23 17:06 Source: patient Mode of arrival: ambulatory Limitations: no limitations - History of Present Illness Initial comments: This 82-year-old female presents with the complaint of having some dark urine for the past several days. She believes that there may be some blood in her urine. She has had some urgency but no dysuria. She may have some slight frequency. She was seen at an urgent care and they ran a urine and it showed some ketones in her urine so they sent her to the emergency department. She states that she has been eating well and drinking well. She is on insulin for diabetes. She denies any fevers or chills. There is no flank pain or suprapubic pain. No nausea or vomiting. No other complaints or modifying factors. She does relate that she seemed a edger automatic in the past for what sounds like some mild renal insufficiency. - Related Data Home Medications Medication Instructions Recorded Confirmed ALPRAZolam [Xanax] 0.25 mg PO BID PRN 12/12/15 05/17/21 Metoprolol Succinate [Toprol XL] 50 mg PO BID 12/12/15 05/17/21 Latanoprost Ophth [Xalatan 0.005%] 1 drops BOTH EYES HS 01/07/16 05/17/21 Cholecalciferol [Vitamin D3 (25 1,000 unit PO DAILY 01/24/20 05/17/21 Mcg = 1000 Iu)] Insulin Glargine,Hum.rec.anlog 16 unit SQ HS 06/22/20 05/17/21 [Lantus Solostar] Clopidogrel [Plavix] 75 mg PO DAILY 05/15/21 05/17/21 Fluticasone Nasal [place] [Flonase 1 spray EA NOSTRIL DAILY 05/15/21 05/17/21 Nasal [place]] Insulin Aspart [NovoLOG] 0 units SQ TID-W/MEALS 05/15/21 05/17/21 Rivaroxaban [Xarelto] 15 mg PO DAILY 05/15/21 05/17/21 Rosuvastatin [Crestor] 20 mg PO Q2D 05/15/21 05/17/21 Ubidecarenone [Co Q-10] 100 mg PO DAILY 05/15/21 05/17/21 amLODIPine BESYLATE 7.5 mg PO HS 05/15/21 05/17/21 Previous Rx's Medication Instructions Recorded Meclizine [Antivert] 25 mg PO TID #20 tab 06/07/23 Allergies Allergy/AdvReac Type Severity Reaction Status Date / Time Sulfa (Sulfonamide Allergy Rash/Hives Verified 08/18/23 17:00 Antibiotics) ibuprofen [From Motrin] AdvReac "unable to Verified 08/18/23 17:00 get up out of bed" iron infusion Allergy Anaphylaxis Uncoded 08/18/23 17:00 Review of Systems ROS Statement: Those systems with pertinent positive or pertinent negative responses have been documented in the HPI. ROS Other: All systems not noted in ROS Statement are negative. Past Medical History Past Medical History: Coronary Artery Disease (CAD), Cancer, CVA/TIA, Diabetes Mellitus, Eye Disorder, Hyperlipidemia, Hypertension, Osteoarthritis (OA), Renal Disease Additional Past Medical History / Comment(s): Hx Skin CA. Glaucoma. PAD. TIA OCT 2020-[place], [place]-LAST EPISODE 05/14/21 History of Any Multi-Drug Resistant Organisms: None Reported Past Surgical History: Adenoidectomy, Breast Surgery, Heart Catheterization, Heart Catheterization With Stent, Hysterectomy, Joint Replacement, Orthopedic Surgery, Tonsillectomy Additional Past Surgical History / Comment(s): left breast biopsy, laparoscopic via naval "to check ovaries and uterus", D & C, [facility], LT Thumb joint replacement, bladder prolapse & repair, EGD, colonoscopy, bilateral eyelid surgery. 03/16/19 ARTHRETECTOMY LAD W/ STENT; SKIN LESION REMOVED Past Anesthesia/Blood Transfusion Reactions: Postoperative Nausea & Vomiting (PO NV) Additional Past Anesthesia/Blood Transfusion Reaction / Comment(s): PONV X1. No hx blood transfusion Date of Last Stent Placement:: 03/28/2019 Past Psychological History: No Psychological Hx Reported Smoking Status: Never smoker Past Alcohol Use History: None Reported Past Drug Use History: None Reported - Past Family History Mother Family Medical History: Cancer, Coronary Artery Disease (CAD), Hypertension Additional Family Medical History / Comment(s): CA: skin Father Family Medical History: Cancer, Coronary Artery Disease (CAD), Hypertension, Myocardial Infarction ([place]) Additional Family Medical History / Comment(s): CA:skin Sister(s) Family Medical History: Coronary Artery Disease (CAD) Additional Family Medical History / Comment(s): CABG Brother(s) Family Medical History: Coronary Artery Disease (CAD), Myocardial Infarction ([place]) General Exam - General Exam Comments Initial Comments: GENERAL: The patient is well nourished and well hydrated. VITAL SIGNS: Heart rate, blood pressure, respiratory rate reviewed as recorded in nurse's notes. EYES: Pupils are round and reactive. Extraocular movements are intact. No conjunctival / lid redness or swelling. ENT: No external evidence of injury, swelling, or ecchymosis. Airway is patent. Throat is clear. NECK: Nontender. No swelling or evidence of injury. No subcutaneous emphysema. Trachea is midline. No thyroid mass. HEART: Regular rate and rhythm. Good peripheral pulses. LUNGS/CHEST: Breath sounds clear and equal bilaterally. No rales, rhonchi, or wheezes. No ecchymosis, subcutaneous emphysema, or tenderness. ABDOMEN: Abdomen soft without tenderness. No palpable masses or organomegaly. No peritoneal signs. No abdominal wall swelling or ecchymosis. EXTREMITIES: No extremity tenderness. Normal muscle tone and function. No thoracolumbar tenderness. NEUROLOGIC: Sensation is grossly intact. Cranial nerve exam reveals face is symmetrical, tongue is midline, speech is clear. SKIN: No abrasions or ecchymosis is noted. No induration or masses noted. PSYCHIATRIC: Alert and oriented. Appropriate behavior and judgment. Limitations: no limitations Course Vital Signs 08/18/23 17:00 Temperature 97.8 F Pulse Rate 77 Respiratory 18 Rate Blood Pressure 155/110 O2 Sat by Pulse 99 Oximetry Medical Decision Making - Medical Decision Making The patient was seen and examined. All diagnostics are reviewed. The urinalysis does show evidence of hematuria but there is no evidence of urinary tract infection. The laboratory does show hyperglycemia but she did administer most recent insulin dose. There is some mild renal insufficiency. Hemoglobin is quite stable. The exact cause of her hematuria is not definitively determined. It is felt as though she benefit from close follow-up with her urologist as she may need a cystoscopy. She is on extensive blood thinners which may be contributing. She states that the last time she urinated that it had cleared significantly. It is felt as though she stable for discharge home. Return parameters are discussed. There are no ketones noted in her urine at our facility. - Lab Data Result diagrams: 08/18/23 17:41 08/18/23 17:41 Lab Results 08/18/23 08/18/23 08/18/23 Range/Units 17:41 17:41 17:41 WBC 5.5 (3.8-10.6) k/uL RBC 5.56 H (3.80-5.40) m/uL Hgb 16.3 H (11.4-16.0) gm/dL Hct 50.6 H (34.0-46.0) % MCV 91.1 (80.0-100.0) fL MCH 29.4 (25.0-35.0) pg MCHC 32.2 (31.0-37.0) g/dL RDW 13.3 (11.5-15.5) % Plt Count 124 L (150-450) k/uL MPV 10.8 Neutrophils % 63 % Lymphocytes % 26 % Monocytes % 6 % Eosinophils % 3 % Basophils % 1 % Neutrophils # 3.5 (1.3-7.7) k/uL Lymphocytes # 1.4 (1.0-4.8) k/uL Monocytes # 0.3 (0-1.0) k/uL Eosinophils # 0.2 (0-0.7) k/uL Basophils # 0.1 (0-0.2) k/uL Sodium 138 (137-145) mmol/L Potassium 3.7 (3.5-5.1) mmol/L Chloride 101 (98-107) mmol/L Carbon Dioxide 24 (22-30) mmol/L Anion Gap 13 mmol/L BUN 34 H (7-17) mg/dL Creatinine 1.28 H (0.52-1.04) mg/dL Est GFR (CKD-EPI)AfAm 45 (>60 ml/min/1.73 sqM) Est GFR (CKD-EPI)NonAf 39 (>60 ml/min/1.73 sqM) Glucose 301 H (74-99) mg/dL Calcium 9.2 (8.4-10.2) mg/dL Total Bilirubin 0.6 (0.2-1.3) mg/dL AST 25 (14-36) U/L ALT 18 (4-34) U/L Alkaline Phosphatase 75 (38-126) U/L Total Protein 7.2 (6.3-8.2) g/dL Albumin 3.9 (3.5-5.0) g/dL Urine Color Light Yellow Urine Appearance Cloudy H (Clear) Urine pH 6.0 (5.0-8.0) Ur Specific [place] 1.016 (1.001-1.035) Urine Protein Negative (Negative) Urine Glucose (UA) 4+ (Negative) Urine Ketones Negative (Negative) Urine Blood Large (Negative) Urine Nitrite Negative (Negative) Urine Bilirubin Negative (Negative) Urine Urobilinogen <2.0 (<2.0) mg/dL Ur Leukocyte Esterase Negative (Negative) Urine RBC 130 H (0-5) /hpf Urine WBC 2 (0-5) /hpf Disposition Clinical Impression: Hematuria, Hyperglycemia, Renal insufficiency Disposition: HOME SELF-CARE Condition: Good Instructions (If sedation given, give patient instructions): Hematuria (ED) Is patient prescribed a controlled substance at d/c from ED?: No Referrals: Pa Heard MD [Primary Care Provider] - 1-2 days Reji Samayoa MD [STAFF PHYSICIAN] - As Soon As Possible Time of Disposition: 19:13
[2023-08-18 17:40] VITALS: RESP 18
[2023-08-18 18:01] LABS: RBC,Urine 130 /hpf (0-5); WBC,Urine 2 /hpf (0-5)
[2023-08-18 18:14] LABS: Appearance,Urine Cloudy (Clear); Color,Urine Light Yellow; Specific Gravity,Urine 1.016 (1.001-1.035)
[2023-08-18 18:15] LABS: Bilirubin,Urine Negative (Negative); Blood,Urine Large (Negative); Glucose,Urine (UA) 4+ (Negative); Ketones,Urine Negative (Negative); Leukocyte Esterase,Urine Negative (Negative); Nitrite,Urine Negative (Negative); Protein,Urine Negative (Negative); Urobilinogen,Urine <2.0 mg/dL (<2.0)
[2023-08-18 18:18] LABS: Basophils # (A) 0.1 k/uL (0-0.2); Basophils % (A) 1 %; Eosinophils # (A) 0.2 k/uL (0-0.7); Eosinophils % (A) 3 %; HCT 50.6 % (34.0-46.0); HGB 16.3 gm/dL (11.4-16.0); Lymphocytes # (A) 1.4 k/uL (1.0-4.8); Lymphocytes % (A) 26 %; MCH 29.4 pg (25.0-35.0); MCHC 32.2 g/dL (31.0-37.0); MCV 91.1 fL (80.0-100.0); Mean Platelet Volume 10.8; Monocytes # (A) 0.3 k/uL (0-1.0); Monocytes % (A) 6 %; Neutrophils # (A) 3.5 k/uL (1.3-7.7); Neutrophils % (A) 63 %; Platelet Count 124 k/uL (150-450); RBC 5.56 m/uL (3.80-5.40); RDW 13.3 % (11.5-15.5); WBC 5.5 k/uL (3.8-10.6)
[2023-08-18 18:41] LABS: ALT 18 U/L (4-34); AST 25 U/L (14-36); African American GFR (CKD) 45 (>60 ml/min/1.73 sqM); Albumin 3.9 g/dL (3.5-5.0); Alkaline Phosphatase 75 U/L (38-126); Anion Gap 13 mmol/L; Blood Urea Nitrogen 34 mg/dL (7-17); Calcium 9.2 mg/dL (8.4-10.2); Carbon Dioxide 24 mmol/L (22-30); Chloride 101 mmol/L (98-107); Glucose 301 mg/dL (74-99); Non-African American GFR(CKD) 39 (>60 ml/min/1.73 sqM); Potassium 3.7 mmol/L (3.5-5.1); Sodium 138 mmol/L (137-145); Total Bilirubin 0.6 mg/dL (0.2-1.3); Total Protein 7.2 g/dL (6.3-8.2)
[2023-08-18 19:45] VITALS: BP 161/88; PULSE 76; TEMP 97.6
== END 2023-08-18 19:41 | disposition home or self-care (01) ==
LOC: EC 16:53
DX: N28.9 Disorder of kidney and ureter, unspecified (principal); E11.65 Type 2 diabetes mellitus with hyperglycemia; I10 Essential (primary) hypertension; I25.10 Atherosclerotic heart disease of native coronary artery without angina pectoris; E78.5 Hyperlipidemia, unspecified; H40.9 Unspecified glaucoma; Z79.02 Long term (current) use of antithrombotics/antiplatelets; Z79.4 Long term (current) use of insulin; Z79.01 Long term (current) use of anticoagulants; Z79.899 Other long term (current) drug therapy; Z88.2 Allergy status to sulfonamides; Z88.6 Allergy status to analgesic agent; Z88.8 Allergy status to other drugs, medicaments and biological substances; Z86.73 Personal history of transient ischemic attack (TIA), and cerebral infarction without residual deficits
CPT/HCPCS: 36415; 80053; 81001; 85025; 99283

== ENCOUNTER → 2023-08-21 | Outpatient (CLI) | payer MEDICARE ==
--- NOTE | 2023-08-25 11:32 | MM ---
Reason for Exam: Screening (asymptomatic). Last mammogram was performed 1 year(s) and 2 month(s) ago. Patient History: Menarche at age 13. Patient has no children. Hysterectomy at age 72. Postmenopausal. Estrogen for 10 years from age 52 until age 62. Progesterone for 10 years from age 52 until age 62. 1982, Excisional Biopsy on the Left side. Paternal cousin had breast cancer, age 45. Maternal aunt had breast cancer, age 74. Sister had breast cancer, age 77. Risk Values: Iris 5 year model risk: 3.6%. NCI Lifetime model risk: 4.8%. Prior Study Comparison: 04/17/2020 Bilateral Screening Mammogram, [facility]. 05/30/2021 Bilateral Screening Mammogram, [facility]. 06/24/2022 Bilateral MG 3D screening mammo w/cad, [facility]. Tissue Density: The breast tissue is heterogeneously dense. This may lower the sensitivity of mammography. Findings: Analyzed By CAD. Pattern appears stable. Focal asymmetry is in the medial mid breast. No suspicious groups of microcalcifications, spiculated or lobular masses, architectural distortion or other secondary signs of malignancy are mammographically apparent.Pattern appears stable. Focal asymmetry is stable in the medial mid breast. No suspicious groups of microcalcifications, spiculated or lobular masses, architectural distortion or other secondary signs of malignancy are mammographically apparent. Overall Assessment: Benign, BI-RAD 2 Management: Screening Mammogram of both breasts in 1 year. A negative mammogram report should not preclude additional follow up of suspicious palpable abnormalities. Patient should continue monthly self breast exam. A clinical breast exam by your physician is recommended on an annual basis and results should be correlated with mammographic findings. Electronically signed and approved by: Linden Davenport D.O. Radiologis
== END | disposition home or self-care (01) ==
LOC: RADMAMWWP 13:26
PROVIDERS: ATTEND Internal Medicine
DX: Z12.31 Encounter for screening mammogram for malignant neoplasm of breast (principal); Z80.3 Family history of malignant neoplasm of breast; Z78.0 Asymptomatic menopausal state
CPT/HCPCS: 77063; 77067

== ENCOUNTER → 2023-08-29 | Outpatient (CLI) | payer MEDICARE ==
[2023-08-29 11:02] LABS: Appearance,Urine Clear (Clear); Bilirubin,Urine Negative (Negative); Blood,Urine Negative (Negative); Color,Urine Colorless; Glucose,Urine (UA) 3+ (Negative); Hyaline Casts,Urine 1 /lpf (0-2); Ketones,Urine Negative (Negative); Leukocyte Esterase,Urine Trace (Negative); Mucus,Urine Rare /hpf; Nitrite,Urine Negative (Negative); Protein,Urine Trace (Negative); RBC,Urine 1 /hpf (0-5); Specific Gravity,Urine 1.013 (1.001-1.035); Squamous Epithelial Cell,Urine 1 /hpf (0-4); Urobilinogen,Urine <2.0 mg/dL (<2.0); WBC,Urine 3 /hpf (0-5)
[2023-08-29 23:40] LABS: Basophils # (A) 0.06 X 10*3/uL (0.00-0.10); Basophils % (A) 0.9 %; Eosinophils # (A) 0.25 X 10*3/uL (0.04-0.35); Eosinophils % (A) 3.8 %; HCT 52.2 % (37.2-46.3); HGB 16.2 g/dL (12.0-15.0); Lymphocytes # (A) 1.35 X 10*3/uL (0.90-5.00); Lymphocytes % (A) 20.3 %; MCH 28.5 pg (27.0-32.0); MCV 91.7 FL (80.0-97.0); Mean Platelet Volume 13.7 FL (9.5-12.2); Monocytes # (A) 0.48 X 10*3/uL (0.20-1.00); Monocytes % (A) 7.2 %; NRBC Per 100 WBC 0 X 10*3/uL (0.00-0.01); Neutrophils # (A) 4.48 X 10*3/uL (1.80-7.70); Neutrophils % (A) 67.5 %; Platelet Count 97 X 10*3/uL (140-440); RBC 5.69 X 10*6/uL (4.10-5.20); RBC Morphology Normal (Normal); RDW 13.1 % (11.5-14.5); WBC 6.64 X 10*3/uL (4.50-10.00)
[2023-08-30 12:59] LABS: ALT 15 U/L (8-44); AST 19 U/L (13-35); Albumin/Globulin Ratio 1.29 Ratio (1.60-3.17); Alkaline Phosphatase 73 U/L (41-126); BUN/Creat Ratio 17.38 Ratio (12.00-20.00); Blood Urea Nitrogen 22.6 mg/dL (9.0-27.0); Calcium 10.1 mg/dL (8.7-10.3); Carbon Dioxide 23.9 mmol/L (21.6-31.8); Chloride 103 mmol/L (96-109); Globulin 3.1 g/dL (1.6-3.3); Glucose 114 mg/dL (70-110); Potassium 3.9 mmol/L (3.5-5.5); Sodium 143 mmol/L (135-145); Total Bilirubin 0.5 mg/dL (0.3-1.2); Total Protein 7.1 g/dL (6.2-8.2)
== END | disposition home or self-care (01) ==
LOC: LABWHC1 10:06
PROVIDERS: ATTEND Internal Medicine
DX: E11.22 Type 2 diabetes mellitus with diabetic chronic kidney disease (principal); N18.9 Chronic kidney disease, unspecified; R31.9 Hematuria, unspecified
CPT/HCPCS: 36415; 80053; 80061; 81001; 83036; 84443; 85025

== ENCOUNTER → 2023-10-09 | Outpatient (CLI) | payer MEDICARE ==
[2023-10-09 15:49] LABS: HCT 42.8 % (37.2-46.3); HGB 14.2 g/dL (12.0-15.0); MCH 28.8 pg (27.0-32.0); MCHC 33.2 g/dL (32.0-37.0); MCV 86.8 FL (80.0-97.0); NRBC Per 100 WBC 0 X 10*3/uL (0.00-0.01); Platelet Count 230 X 10*3/uL (140-440); RBC 4.93 X 10*6/uL (4.10-5.20); RDW 12.6 % (11.5-14.5); WBC 11.27 X 10*3/uL (4.50-10.00)
[2023-10-09 18:02] LABS: BUN/Creat Ratio 28.14 Ratio (12.00-20.00); Blood Urea Nitrogen 39.4 mg/dL (9.0-27.0); Calcium 9.2 mg/dL (8.7-10.3); Carbon Dioxide 27.9 mmol/L (21.6-31.8); Chloride 95 mmol/L (96-109); Glucose 238 mg/dL (70-110); Sodium 136 mmol/L (135-145)
== END | disposition home or self-care (01) ==
LOC: LABWHC1 11:11
PROVIDERS: ATTEND Internal Medicine Interventional Cardiology
DX: N18.9 Chronic kidney disease, unspecified (principal)
CPT/HCPCS: 36415; 80048; 85027

== ENCOUNTER → 2024-01-07 | Outpatient (CLI) | payer MEDICARE ==
[2024-01-07 19:18] LABS: Urine Creatinine 30.1 mg/dL (28.0-217.0)
[2024-01-07 19:44] LABS: Appearance,Urine Cloudy (Clear); Bilirubin,Urine Negative (Negative); Blood,Urine Large (Negative); Color,Urine Yellow (Yellow); Ketones,Urine Negative (Negative); Nitrite,Urine Negative (Negative); Specific Gravity,Urine 1.008 (1.001-1.030); Urobilinogen,Urine 0.2 E.U./DL
[2024-01-07 19:49] LABS: Bacteria,Urine 3+ (None Seen)
[2024-01-07 20:35] LABS: Basophils # (A) 0.05 X 10*3/uL (0.00-0.10); Basophils % (A) 0.6 %; Eosinophils # (A) 0.19 X 10*3/uL (0.04-0.35); Eosinophils % (A) 2.4 %; HCT 42.5 % (37.2-46.3); HGB 13.8 g/dL (12.0-15.0); Lymphocytes # (A) 2.03 X 10*3/uL (0.90-5.00); Lymphocytes % (A) 25.2 %; MCH 27.2 pg (27.0-32.0); MCHC 32.5 g/dL (32.0-37.0); MCV 83.8 FL (80.0-97.0); Mean Platelet Volume 13.1 FL (9.5-12.2); Monocytes # (A) 0.48 X 10*3/uL (0.20-1.00); NRBC Per 100 WBC 0 X 10*3/uL (0.00-0.01); Neutrophils # (A) 5.26 X 10*3/uL (1.80-7.70); Neutrophils % (A) 65.4 %; Platelet Count 150 X 10*3/uL (140-440); RBC 5.07 X 10*6/uL (4.10-5.20); RDW 13.2 % (11.5-14.5); WBC 8.04 X 10*3/uL (4.50-10.00)
[2024-01-07 20:58] LABS: % Iron Saturation 11.02 (12.00-45.00); BUN/Creat Ratio 17.07 Ratio (12.00-20.00); Blood Urea Nitrogen 23.9 mg/dL (9.0-27.0); Calcium 9.8 mg/dL (8.7-10.3); Carbon Dioxide 27.6 mmol/L (21.6-31.8); Chloride 96 mmol/L (96-109); Ferritin 31.3 ng/mL (10.0-291.0); Glucose 210 mg/dL (70-110); Iron 42 UG/DL (50-170); Magnesium 1.9 mg/dL (1.5-2.4); Phosphorus 3.6 mg/dL (2.4-5.1); Potassium 3.7 mmol/L (3.5-5.5); Sodium 138 mmol/L (135-145); Total Iron Binding Capacity 381 UG/DL (228-460)
== END | disposition home or self-care (01) ==
LOC: LABWHC1 13:48
PROVIDERS: ATTEND Nurse Practitioner Family
DX: N18.32 Chronic kidney disease, stage 3b (principal)
CPT/HCPCS: 36415; 80048; 81001; 82043; 82306; 82570; 82728; 83540; 83550; 83735; 83970; 84100; 85025

== ENCOUNTER → 2024-03-24 | Outpatient (CLI) | payer MEDICARE ==
[2024-03-24 19:34] LABS: BUN/Creat Ratio 23.81 Ratio (12.00-20.00); Blood Urea Nitrogen 38.1 mg/dL (9.0-27.0); Calcium 9.3 mg/dL (8.7-10.3); Carbon Dioxide 25.5 mmol/L (21.6-31.8); Chloride 101 mmol/L (96-109); Glucose 148 mg/dL (70-110); Potassium 3.9 mmol/L (3.5-5.5); Sodium 140 mmol/L (135-145)
[2024-03-25 05:17] LABS: Appearance,Urine Clear (Clear); Bacteria,Urine 3+ (None Seen); Bilirubin,Urine Negative (Negative); Blood,Urine Negative (Negative); Color,Urine Yellow (Yellow); Ketones,Urine Negative (Negative); Nitrite,Urine Negative (Negative); Specific Gravity,Urine 1.013 (1.001-1.030)
== END | disposition home or self-care (01) ==
LOC: LABWHC1 15:05
PROVIDERS: ATTEND Internal Medicine Nephrology
DX: N18.32 Chronic kidney disease, stage 3b (principal); R82.81 Pyuria
CPT/HCPCS: 36415; 80048; 81001; 87086

== ENCOUNTER → 2024-07-12 | Outpatient (CLI) | payer MEDICARE ==
[2024-07-12 18:49] LABS: HCT 38.8 % (37.2-46.3); HGB 12.4 g/dL (12.0-15.0); MCV 90.7 FL (80.0-97.0); Mean Platelet Volume 13.3 FL (9.5-12.2); NRBC Per 100 WBC 0 X 10*3/uL (0.00-0.01); Platelet Count 132 X 10*3/uL (140-440); RBC 4.28 X 10*6/uL (4.10-5.20); RDW 14.1 % (11.5-14.5); WBC 8.94 X 10*3/uL (4.50-10.00)
[2024-07-12 18:55] LABS: Appearance,Urine Cloudy (Clear); Bilirubin,Urine Negative (Negative); Blood,Urine Negative (Negative); Color,Urine Yellow (Yellow); Ketones,Urine Negative (Negative); Nitrite,Urine Positive (Negative); PH, Urine 5.5; Specific Gravity,Urine 1.017 (1.001-1.030); Urobilinogen,Urine 0.2 E.U./DL
[2024-07-12 19:03] LABS: Bacteria,Urine 3+ (None Seen)
[2024-07-12 20:08] LABS: % Iron Saturation 13.33 (12.00-45.00); BUN/Creat Ratio 22.15 Ratio (12.00-20.00); Blood Urea Nitrogen 28.8 mg/dL (9.0-27.0); Calcium 9.8 mg/dL (8.7-10.3); Carbon Dioxide 23.1 mmol/L (21.6-31.8); Chloride 101 mmol/L (96-109); Ferritin 36.7 ng/mL (10.0-291.0); Glucose 237 mg/dL (70-110); Iron 50 UG/DL (50-170); Potassium 4.8 mmol/L (3.5-5.5); Sodium 137 mmol/L (135-145); Total Iron Binding Capacity 375 UG/DL (228-460)
[2024-07-12 22:55] LABS: Magnesium 1.9 mg/dL (1.5-2.4); Phosphorus 3.9 mg/dL (2.4-5.1)
== END | disposition home or self-care (01) ==
LOC: LABWHC1 13:58
PROVIDERS: ATTEND Internal Medicine Nephrology
CPT/HCPCS: 36415; 80048; 81001; 82306; 82728; 83540; 83550; 83735; 83970; 84100; 85027

== ENCOUNTER 2024-08-04 13:49 | Emergency (ER) | payer MEDICARE ==
--- NOTE | 2024-08-04 14:51 | XR ---
EXAMINATION TYPE: XR knee complete RT DATE OF EXAM: 08/04/2024 2:43 PM COMPARISON: None. CLINICAL INDICATION: Female, 83 years old with history of fall swelling, pain TECHNIQUE: XR knee complete RT views were obtained FINDINGS: There is no acute fracture/dislocation. The tri-compartment joint spaces appear within no rmal limits. Severe prepatellar soft tissue edema extending from the tibial tuberosity through the rivera prapatellar region. This could reflect posttraumatic edema versus prepatellar bursitis. Correlate cli nically. IMPRESSION: There is no acute fracture or dislocation.Prepatellar soft tissue edema is noted. [facility], , 08/04/2024 2:49 PM
--- NOTE | 2024-08-04 14:52 | XR ---
EXAMINATION TYPE: XR forearm RT DATE OF EXAM: 08/04/2024 2:46 PM COMPARISON: None. CLINICAL INDICATION: Female, 83 years old with history of fall swelling, pain TECHNIQUE: XR forearm RT views were obtained. FINDINGS: There is no acute fracture/dislocation evident. The joint spaces appear within normal limits. The ov erlying soft tissue appears unremarkable. IMPRESSION: No acute fracture or dislocation. [facility], , 08/04/2024 2:50 PM
--- NOTE | 2024-08-04 14:53 | XR ---
EXAMINATION TYPE: XR Hip RT and AP Pelvis DATE OF EXAM: 08/04/2024 2:43 PM COMPARISON: None. CLINICAL INDICATION: Female, 83 years old with history of fall, pain TECHNIQUE: XR Hip RT and AP Pelvis views were obtained. AP Pelvis also obtained. FINDINGS: There is no acute fracture/dislocation evident. The joint space appears within normal li mits. The overlying soft tissue appears unremarkable. IMPRESSION: No acute fracture or dislocation. [facility], , 08/04/2024 2:51 PM
--- NOTE | 2024-08-04 14:53 | XR ---
EXAMINATION TYPE: XR elbow complete RT DATE OF EXAM: 08/04/2024 2:46 PM COMPARISON: None. CLINICAL INDICATION: Female, 83 years old with history of fall swelling, TECHNIQUE: XR elbow complete RT views of the elbow were obtained. FINDINGS: There is no acute fracture/dislocation evident of the elbow. No abnormal fat pad signs are seen. Th e overlying soft tissue appears unremarkable. IMPRESSION: There is no acute fracture or dislocation of the elbow. ICD 10 NO FRACTURE, INITIAL EVALUATION [facility], , 08/04/2024 2:50 PM
--- NOTE | 2024-08-04 15:13 | ED ---
Fall HPI - General Chief Complaint: Fall Stated Complaint: Fall on thinner-R knee injury Time Seen by Provider: 08/04/24 14:05 Source: patient, RN notes reviewed Mode of arrival: wheelchair - History of Present Illness Initial Comments: This is an 83-year-old female on Xarelto presenting to the emergency department for chief complaint of a fall. Patient states that approximately 1200 today she was walking out of a musical concert and tripped over an uneven of the walkway causing her to fall onto her right knee and elbow. Patient denies hitting her head or loss conscious time the injury. Patient states that she is able to ambulate with most pain being severe over her right knee. She denies previous surgeries of the right knee. No other acute complaints at this time. - Related Data Home Medications Medication Instructions Recorded Confirmed ALPRAZolam [Xanax] 0.25 mg PO BID PRN 12/12/15 05/17/21 Metoprolol Succinate [Toprol XL] 50 mg PO BID 12/12/15 05/17/21 Latanoprost Ophth [Xalatan 0.005%] 1 drops BOTH EYES HS 01/07/16 05/17/21 Cholecalciferol [Vitamin D3 (25 1,000 unit PO DAILY 01/24/20 05/17/21 Mcg = 1000 Iu)] Insulin Glargine,Hum.rec.anlog 16 unit SQ HS 06/22/20 05/17/21 [Lantus Solostar] Clopidogrel [Plavix] 75 mg PO DAILY 05/15/21 05/17/21 Fluticasone Nasal [place] [Flonase 1 spray EA NOSTRIL DAILY 05/15/21 05/17/21 Nasal [place]] Insulin Aspart [NovoLOG] 0 units SQ TID-W/MEALS 05/15/21 05/17/21 Rivaroxaban [Xarelto] 15 mg PO DAILY 05/15/21 05/17/21 Rosuvastatin [Crestor] 20 mg PO Q2D 05/15/21 05/17/21 Ubidecarenone [Co Q-10] 100 mg PO DAILY 05/15/21 05/17/21 amLODIPine BESYLATE 7.5 mg PO HS 05/15/21 05/17/21 Previous Rx's Medication Instructions Recorded Meclizine [Antivert] 25 mg PO TID #20 tab 06/07/23 Allergies Allergy/AdvReac Type Severity Reaction Status Date / Time Sulfa (Sulfonamide Allergy Rash/Hives Verified 08/18/23 17:00 Antibiotics) ibuprofen [From Motrin] AdvReac "unable to Verified 08/18/23 17:00 get up out of bed" iron infusion Allergy Anaphylaxis Uncoded 08/18/23 17:00 Review of Systems ROS Statement: Those systems with pertinent positive or pertinent negative responses have been documented in the HPI. ROS Other: All systems not noted in ROS Statement are negative. Past Medical History Past Medical History: Coronary Artery Disease (CAD), Cancer, CVA/TIA, Diabetes Mellitus, Eye Disorder, Hyperlipidemia, Hypertension, Osteoarthritis (OA), Renal Disease Additional Past Medical History / Comment(s): Hx Skin CA. Glaucoma. PAD. TIA OCT 2020-[place], [place]-LAST EPISODE 05/14/21 History of Any Multi-Drug Resistant Organisms: None Reported Past Surgical History: Adenoidectomy, Breast Surgery, Heart Catheterization, Heart Catheterization With Stent, Hysterectomy, Joint Replacement, Orthopedic Surgery, Tonsillectomy Additional Past Surgical History / Comment(s): left breast biopsy, laparoscopic via naval "to check ovaries and uterus", D & C, [facility], LT Thumb joint replacement, bladder prolapse & repair, EGD, colonoscopy, bilateral eyelid surgery. 03/16/19 ARTHRETECTOMY LAD W/ STENT; SKIN LESION REMOVED Past Anesthesia/Blood Transfusion Reactions: Postoperative Nausea & Vomiting (PONV) Additional Past Anesthesia/Blood Transfusion Reaction / Comment(s): PONV X1. No hx blood transfusion Date of Last Stent Placement:: 03/28/2019 Past Psychological History: No Psychological Hx Reported Smoking Status: Never smoker Past Alcohol Use History: None Reported Past Drug Use History: None Reported - Past Family History Mother Family Medical History: Cancer, Coronary Artery Disease (CAD), Hypertension Additional Family Medical History / Comment(s): [place]: skin Father Family Medical History: Cancer, Coronary Artery Disease (CAD), Hypertension, Myocardial Infarction ([place]) Additional Family Medical History / Comment(s): [place]:skin Sister(s) Family Medical History: Coronary Artery Disease (CAD) Additional Family Medical History / Comment(s): CABG Brother(s) Family Medical History: Coronary Artery Disease (CAD), Myocardial Infarction ([place]) General Exam Limitations: no limitations General appearance: alert, in no apparent distress Eye exam: Present: normal appearance, PERRL, EOMI. Absent: scleral icterus, conjunctival injection, periorbital swelling Neck exam: Present: normal inspection. Absent: tenderness, meningismus, lymphadenopathy Respiratory exam: Present: normal lung sounds bilaterally. Absent: respiratory distress, wheezes, rales, rhonchi, stridor Cardiovascular Exam: Present: regular rate, normal rhythm, normal heart sounds. Absent: systolic murmur, diastolic murmur, rubs, gallop, clicks GI/Abdominal exam: Present: soft, normal bowel sounds. Absent: distended, tenderness, guarding, rebound, rigid Right Knee exam: Present: tenderness, swelling, ecchymosis. Absent: deformity, crepitus, dislocation, effusion Neurovascular tendon exam: Present: no vascular compromise Gait: observed and normal Back exam: Present: normal inspection Neurological exam: Present: alert, oriented X3, CN II-XII intact Course Vital Signs 08/04/24 08/04/24 13:58 15:46 Temperature 98 F 98.1 F Pulse Rate 46 L 53 L Respiratory 20 18 Rate Blood Pressure 149/83 134/78 O2 Sat by Pulse 99 99 Oximetry Medical Decision Making - Medical Decision Making Was pt. sent in by a medical professional or institution (, PA, FAMILY MEDICINE CHAIR, urgent care, hospital, or fpc...) When possible be specific @ -No Did you speak to anyone other than the patient for history (EMS, parent, family, police, friend...)? What history was obtained from this source @ -No Did you review nursing and triage notes (agree or disagree)? Why? @ -I reviewed and agree with nursing and triage notes Were old charts reviewed (outside hosp., previous admission, EMS record, old EKG, old radiological studies, urgent care reports/EKG's, fpc records)? Report findings @ -No old charts were reviewed Differential Diagnosis (chest pain, altered mental status, abdominal pain women, abdominal pain men, vaginal bleeding, weakness, fever, dyspnea, syncope, headache, dizziness, GI bleed, back pain, seizure, CVA, palpatations, mental health, musculoskeletal)? @ -Differential Musculoskeletal Muscular strain, contusion, ligament sprain, fracture, arthritis, septic arthritis, bursitis, cellulitis, muscle spasm, nerve compression, DVT, arterial occlusion, herpes zoster, electrolyte abnormality, tumor.... This is not meant to be in all inclusive list EKG interpreted by me (3pts min.). @ -None X-rays interpreted by me (1pt min.). @ -X-ray of the right knee reveals no acute fracture or dislocation with prepatellar soft tissue edema xray of the right elbow, forearm unremarkable for acute process. X-ray of the right hip and pelvis no acute process. CT interpreted by me (1pt min.). @ -None done U/S interpreted by me (1pt. min.). @ -None done What testing was considered but not performed or refused? (CT, X-rays, U/S, labs)? Why? @ -None What meds were considered but not given or refused? Why? @ -None Did you discuss the management of the patient with other professionals (professionals i.e. , PA, FAMILY MEDICINE CHAIR, lab, RT, psych nurse, manager social media, sliver lap tender, teacher, national service officer, case advocate)? Give summary @ -No Was smoking cessation discussed for >3mins.? @ -No Was critical care preformed (if so, how long)? @ -No Were there social determinants of health that impacted care today? How? (Homelessness, low income, unemployed, alcoholism, drug addiction, transportation, low edu. Level, literacy, decrease access to med. care, senior living, rehab)? @ -No Was there de-escalation of care discussed even if they declined (Discuss DNR or withdrawal of care, Hospice)? DNR status @ -No What co-morbidities impacted this encounter? (DM, HTN, Smoking, COPD, CAD, Cancer, CVA, ARF, Chemo, Hep., AIDS, mental health diagnosis, sleep apnea, morbid obesity)? @ -None Was patient admitted / discharged? Hospital course, mention meds given and route, prescriptions, significant lab abnormalities, going to OR and other pert inent info. @ -Discharge. 83-year-old female with a fall this equipment knee, upper extremity, hip pain. Patient is able to ambulate. She is noted to have mild soft tissue swelling of the right knee. She is neuro vastly intact. X-rays unremarkable for acute process. Recommend the patient continue to rest, ice, elevate and use Tylenol as needed for pain relief. Discussed with Dr. Kaur Undiagnosed new problem with uncertain prognosis? @ -No Drug Therapy requiring intensive monitoring for toxicity (Heparin, Nitro, Insulin, Cardizem)? @ -No Were any procedures done? @ -No Diagnosis/symptom? @ -Fall, knee sprain, soft tissue swelling of knee Acute, or Chronic, or Acute on Chronic? @ -Acute Uncomplicated (without systemic symptoms) or Complicated (systemic symptoms)? @ -uncomplicated Side effects of treatment? @ -No Exacerbation, Progression, or Severe Exacerbation? @ -No Poses a threat to life or bodily function? How? (Chest pain, [place], [place], pneumonia, PE, COPD, DKA, ARF, appy, cholecystitis, CVA, Diverticulitis, Homicidal, Suicidal, threat to staff... and all critical care pts) @ -No Disposition Clinical Impression: Fall, Knee pain, Elbow pain Disposition: HOME SELF-CARE Condition: Good Instructions (If sedation given, give patient instructions): Fall Prevention for Older Adults (ED) Additional Instructions: Please return to the Emergency Department if symptoms worsen or any other concerns. Continue to rest, ice, elevate and use Tylenol as needed for pain control. Is patient prescribed a controlled substance at d/c from ED?: No Referrals: Pa Heard DO [Primary Care Provider] - 1-2 days Time of Disposition: 15:12
[2024-08-04 15:47] VITALS: BP 134/78; PULSE 53; RESP 18; TEMP 98.1
== END 2024-08-04 16:08 | disposition home or self-care (01) ==
LOC: EC 13:49
DX: S83.91XA Sprain of unspecified site of right knee, initial encounter (principal); M25.521 Pain in right elbow; Z88.2 Allergy status to sulfonamides; Z88.6 Allergy status to analgesic agent; Z88.8 Allergy status to other drugs, medicaments and biological substances; W01.0XXA Fall on same level from slipping, tripping and stumbling without subsequent striking against object, initial encounter; Y93.01 Activity, walking, marching and hiking
CPT/HCPCS: 73502; 99283

== ENCOUNTER 2024-08-10 14:33 | Emergency (ER) | payer MEDICARE ==
[2024-08-10 15:38] LABS: Basophils % (A) 0 %; Eosinophils # (A) 0.1 k/uL (0-0.7); Eosinophils % (A) 1 %; HCT 28.9 % (34.0-46.0); HGB 9.4 gm/dL (11.4-16.0); Hypochromasia Slight; Lymphocytes # (A) 1.4 k/uL (1.0-4.8); Lymphocytes % (A) 15 %; MCH 28.7 pg (25.0-35.0); MCHC 32.7 g/dL (31.0-37.0); MCV 87.7 fL (80.0-100.0); Mean Platelet Volume 9.4; Monocytes # (A) 0.5 k/uL (0-1.0); Monocytes % (A) 6 %; Neutrophils # (A) 6.9 k/uL (1.3-7.7); Neutrophils % (A) 77 %; Platelet Count 185 k/uL (150-450); RDW 14.1 % (11.5-15.5)
[2024-08-10 15:49] LABS: ALT 16 U/L (4-34); African American GFR (CKD) 43 (>60 ml/min/1.73 sqM); Albumin 4.2 g/dL (3.5-5.0); Anion Gap 9 mmol/L; Blood Urea Nitrogen 41 mg/dL (7-17); Calcium 9.5 mg/dL (8.4-10.2); Carbon Dioxide 24 mmol/L (22-30); Chloride 104 mmol/L (98-107); Glucose 205 mg/dL (74-99); Non-African American GFR(CKD) 37 (>60 ml/min/1.73 sqM); Sodium 137 mmol/L (137-145); Total Bilirubin 1.3 mg/dL (0.2-1.3); Total Protein 7.6 g/dL (6.3-8.2)
[2024-08-10 15:52] LABS: AST 29 U/L (14-36); Alkaline Phosphatase 59 U/L (38-126); Potassium 4.3 mmol/L (3.5-5.1)
--- NOTE | 2024-08-10 16:35 | XR ---
EXAMINATION TYPE: XR tibia fibula RT DATE OF EXAM: 08/10/2024 4:12 PM COMPARISON: 08/10/2024 CLINICAL INDICATION: Female, 83 years old with history of fall; pain TECHNIQUE: XR tibia fibula RT; examined in AP and lateral projections. FINDINGS: Prepatellar soft tissue edema is present. No evidence of fracture. Mild degeneration change s of the knee with osteophyte formation and joint space narrowing. Calcaneal plantar spurring is also noted. There is severe atherosclerosis of the arterial vasculature. IMPRESSION: 1. No evidence of acute fracture. 2. Prepatellar soft tissue edema without evidence of fracture. [facility], , 08/10/2024 4:33 PM
--- NOTE | 2024-08-10 16:38 | XR ---
EXAMINATION TYPE: XR knee complete RT DATE OF EXAM: 08/10/2024 4:12 PM COMPARISON: Same day radiographs CLINICAL INDICATION: Female, 83 years old with history of fall; pain TECHNIQUE: XR knee complete RT XX views submitted. FINDINGS: No evidence of any acute osseous pathology, or joint effusion is noted. Tricompartmental osteophyte formation involving the femoral condyles, tibial plateau and patella. Mild joint space camilo rowing. Prepatellar edema noted anterior to the tibia. Moderate to severe atherosclerosis of the reji rial vasculature. IMPRESSION: 1. Prepatellar soft tissue edema without acute osseous pathology. 2. Mild tricompartmental osteoarthritic changes. [facility], , 08/10/2024 4:36 PM
[2024-08-10 17:26] LABS: Glucose,Whole Blood 187 mg/dL (70-110)
[2024-08-10 17:29] VITALS: RESP 18
--- NOTE | 2024-08-10 17:35 | ED ---
General Adult HPI - General Chief complaint: Recheck/Abnormal Lab/Rx Stated complaint: Recheck-Fall on thinners Time Seen by Provider: 08/10/24 14:45 Source: patient, RN notes reviewed Mode of arrival: ambulatory Limitations: no limitations - History of Present Illness Initial comments: 83-year-old female presents to the emergency department for evaluation of right leg pain and swelling. Patient reports that she recently took a fall and was evaluated at the emergency department at that time. She states that she had negative x-rays of the right knee. She states that since then she has noticed a worsening swelling to the right knee and the lower leg. Patient also reports worsening pain to the leg. She is on Xarelto. She does state that she is able to ambulate. - Related Data Home Medications Medication Instructions Recorded Confirmed ALPRAZolam [Xanax] 0.25 mg PO BID PRN 12/12/15 08/10/24 Metoprolol Succinate [Toprol XL] 50 mg PO BID 12/12/15 08/10/24 Insulin Glargine,Hum.rec.anlog 12 - 24 unit SQ HS 06/22/20 08/10/24 [Lantus Solostar] Rivaroxaban [Xarelto] 15 mg PO DAILY 05/15/21 08/10/24 Rosuvastatin [Crestor] 20 mg PO Q48H 05/15/21 08/10/24 amLODIPine BESYLATE 5 mg PO BID 05/15/21 08/10/24 Aspirin EC [Ecotrin Low Dose] 81 mg PO DAILY 08/10/24 08/10/24 Benazepril HCl 20 mg PO DAILY 08/10/24 08/10/24 Cholecalciferol [Vitamin D3 (25 25 mcg PO DAILY 08/10/24 08/10/24 Mcg = 1000 Iu)] Cyanocobalamin (Vitamin B-12) 5,000 mcg PO DAILY 08/10/24 08/10/24 [Vitamin B-12] Furosemide [Lasix] 20 mg PO Q48H 08/10/24 08/10/24 Furosemide [Lasix] 40 mg PO Q48H 08/10/24 08/10/24 Insulin Aspart [NovoLOG Flexpen] See Protocol SQ AC-TID 08/10/24 08/10/24 Latanoprost [Latanoprost 0.005%] 1 drop BOTH EYES HS 08/10/24 08/10/24 Allergies Allergy/AdvReac Type Severity Reaction Status Date / Time Sulfa (Sulfonamide Allergy Rash/Hives Verified 08/10/24 16:07 Antibiotics) ibuprofen [From Motrin] AdvReac "unable to Verified 08/10/24 16:07 get up out of bed" iron infusion Allergy Anaphylaxis Uncoded 08/10/24 14:43 Review of Systems ROS Statement: Those systems with pertinent positive or pertinent negative responses have been documented in the HPI. ROS Other: All systems not noted in ROS Statement are negative. Past Medical History Past Medical History: Coronary Artery Disease (CAD), Cancer, CVA/TIA, Diabetes Mellitus, Eye Disorder, Hyperlipidemia, Hypertension, Osteoarthritis (OA), Renal Disease Additional Past Medical History / Comment(s): Hx Skin CA. Glaucoma. PAD. TIA OCT 2020-[place], [place]-LAST EPISODE 05/14/21 History of Any Multi-Drug Resistant Organisms: None Reported Past Surgical History: Adenoidectomy, Breast Surgery, Heart Catheterization, Heart Catheterization With Stent, Hysterectomy, Joint Replacement, Orthopedic Surgery, Tonsillectomy Additional Past Surgical History / Comment(s): left breast biopsy, laparoscopic via naval "to check ovaries and uterus", D & C, [facility], LT Thumb joint replacement, bladder prolapse & repair, EGD, colonoscopy, bilateral eyelid surgery. 03/16/19 ARTHRETECTOMY LAD W/ STENT; SKIN LESION REMOVED Past Anesthesia/Blood Transfusion Reactions: Postoperative Nausea & Vomiting (PONV) Additional Past Anesthesia/Blood Transfusion Reaction / Comment(s): PONV X1. No hx blood transfusion Date of Last Stent Placement:: 03/28/2019 Past Psychological History: No Psychological Hx Reported Smoking Status: Never smoker Past Alcohol Use History: None Reported Past Drug Use History: None Reported - Past Family History Mother Family Medical History: Cancer, Coronary Artery Disease (CAD), Hypertension Additional Family Medical History / Comment(s): CA: skin Father Family Medical History: Cancer, Coronary Artery Disease (CAD), Hypertension, Myocardial Infarction ([place]) Additional Family Medical History / Comment(s): CA:skin Sister(s) Family Medical History: Coronary Artery Disease (CAD) Additional Family Medical History / Comment(s): CABG Brother(s) Family Medical History: Coronary Artery Disease (CAD), Myocardial Infarction ([place]) General Exam Limitations: no limitations General appearance: alert, in no apparent distress Head exam: Present: atraumatic, normocephalic, normal inspection Neck exam: Present: normal inspection. Absent: tenderness, meningismus, lymphadenopathy Respiratory exam: Present: normal lung sounds bilaterally. Absent: respiratory distress, wheezes, rales, rhonchi, stridor Cardiovascular Exam: Present: regular rate, normal rhythm, normal heart sounds. Absent: systolic murmur, diastolic murmur, rubs, gallop, clicks Extremities exam: Present: tenderness, pedal edema, joint swelling, other (Ecchymosis and swelling to the right knee and leg, distal pulses intact) Neurological exam: Present: alert, oriented X3 Psychiatric exam: Present: normal affect, normal mood Skin exam: Present: warm, dry. Absent: intact, normal color Course Vital Signs 08/10/24 08/10/24 08/10/24 14:39 17:28 19:39 Temperature 97.9 F 98.0 F 97.8 F Pulse Rate 106 H 86 76 Respiratory 20 18 18 Rate Blood Pressure 139/69 145/83 147/92 O2 Sat by Pulse 97 99 99 Oximetry Medical Decision Making - Medical Decision Making Was pt. sent in by a medical professional or institution (, PA, I&C TECHNICIAN, urgent care, hospital, or penitentiary...) When possible be specific @ -Sent in by PCP Did you speak to anyone other than the patient for history (EMS, parent, family, police, friend...)? What history was obtained from this source @ -No Did you review nursing and triage notes (agree or disagree)? Why? @ -I reviewed and agree with nursing and triage notes Were old charts reviewed (outside hosp., previous admission, EMS record, old EKG, old radiological studies, urgent care reports/EKG's, penitentiary records)? Report findings @ -No old charts were reviewed Differential Diagnosis (chest pain, altered mental status, abdominal pain women, abdominal pain men, vaginal bleeding, weakness, fever, dyspnea, syncope, headache, dizziness, GI bleed, back pain, seizure, CVA, palpatations, mental health, musculoskeletal)? @ -Differential Musculoskeletal Muscular strain, contusion, ligament sprain, fracture, arthritis, septic arthritis, bursitis, cellulitis, muscle spasm, nerve compression, DVT, arterial occlusion, herpes zoster, electrolyte abnormality, tumor.... This is not meant to be in all inclusive list EKG interpreted by me (3pts min.). @ -None X-rays interpreted by me (1pt min.). @ -X-ray of the right knee and tib-fib shows soft tissue swelling with no acute fracture dislocation CT interpreted by me (1pt min.). @ -CT of the right lower extremity shows an subcutaneous hematoma of the anterior knee, soft tissue swelling throughout the lower extremity U/S interpreted by me (1pt. min.). @ -None done What testing was considered but not performed or refused? (CT, X-rays, U/S, labs)? Why? @ -None What meds were considered but not given or refused? Why? @ -None Did you discuss the management of the patient with other professionals ( professionals i.e. , PA, I&C TECHNICIAN, lab, RT, psych nurse, social sciences professor, tonnage compilation clerk, teacher, special police officer, outsole caser)? Give summary @ -No Was smoking cessation discussed for >3mins.? @ -No Was critical care preformed (if so, how long)? @ -No Were there social determinants of health that impacted care today? How? (Homelessness, low income, unemployed, alcoholism, drug addiction, transportation, low edu. Level, literacy, decrease access to med. care, group home, rehab)? @ -No Was there de-escalation of care discussed even if they declined (Discuss DNR or withdrawal of care, Hospice)? DNR status @ -No What co-morbidities impacted this encounter? (DM, HTN, Smoking, COPD, CAD, Cancer, CVA, ARF, Chemo, Hep., AIDS, mental health diagnosis, sleep apnea, morbid obesity)? @ -None Was patient admitted / discharged? Hospital course, mention meds given and route, prescriptions, significant lab abnormalities, going to OR and other pertinent info. @ -Discharged. Patient presented to the emergency department for swelling and bruising to the right leg following a fall. She states that she was evaluated after the fall and was told that nothing was broken. Repeat x-rays were obtained today revealing soft tissue swelling with no evidence of acute fracture. Laboratory studies obtained revealed no significant leukocytosis, CRP 1. Patient does have significant swelling and ecchymosis to the right leg and therefore a CT of the right lower extremity was obtained revealing a subcu hematoma of the anterior knee and soft tissue swelling throughout the lower extremity. I advised compression, elevation to the leg and follow-up with orthopedics. Patient is understanding and agreeable with this. Case was discussed with Dr. Jc who also evaluated the patient. Undiagnosed new problem with uncertain prognosis? @ -No Drug Therapy requiring intensive monitoring for toxicity (Heparin, Nitro, I nsulin, Cardizem)? @ -No Were any procedures done? @ -No Diagnosis/symptom? @ -Subcutaneous hematoma Acute, or Chronic, or Acute on Chronic? @ -Acute Uncomplicated (without systemic symptoms) or Complicated (systemic symptoms)? @ -Uncomplicated Side effects of treatment? @ -No Exacerbation, Progression, or Severe Exacerbation? @ -No Poses a threat to life or bodily function? How? (Chest pain, [place], [place], pneumonia, PE, COPD, DKA, ARF, appy, cholecystitis, CVA, Diverticulitis, Homicidal, Suic idal, threat to staff... and all critical care pts) @ -No - Lab Data Result diagrams: 08/10/24 15:32 08/10/24 15:32 Lab Results 08/10/24 08/10/24 08/10/24 Range/Units 15:32 15:32 17:25 WBC 9.0 (3.8-10.6) k/uL RBC 3.30 L (3.80-5.40) m/uL Hgb 9.4 L (11.4-16.0) gm/dL Hct 28.9 L (34.0-46.0) % MCV 87.7 (80.0-100.0) fL MCH 28.7 (25.0-35.0) pg MCHC 32.7 (31.0-37.0) g/dL RDW 14.1 (11.5-15.5) % Plt Count 185 (150-450) k/uL MPV 9.4 Neutrophils % 77 % Lymphocytes % 15 % Monocytes % 6 % Eosinophils % 1 % Basophils % 0 % Neutrophils # 6.9 (1.3-7.7) k/uL Lymphocytes # 1.4 (1.0-4.8) k/uL Monocytes # 0.5 (0-1.0) k/uL Eosinophils # 0.1 (0-0.7) k/uL Basophils # 0.0 (0-0.2) k/uL Hypochromasia Slight ESR 52 H (0-30) mm/Hr Sodium 137 (137-145) mmol/L Potassium 4.3 (3.5-5.1) mmol/L Chloride 104 (98-107) mmol/L Carbon Dioxide 24 (22-30) mmol/L Anion Gap 9 mmol/L BUN 41 H (7-17) mg/dL Creatinine 1.32 H (0.52-1.04) mg/dL Est GFR (CKD-EPI)AfAm 43 (>60 ml/min/1.73 sqM) Est GFR (CKD-EPI)NonAf 37 (>60 ml/min/1.73 sqM) Glucose 205 H (74-99) mg/dL POC Glucose (mg/dL) 187 H (70-110) mg/dL POC Glu Countersinker Balance Screw Hole ID Lawrence Liang Calcium 9.5 (8.4-10.2) mg/dL Total Bilirubin 1.3 (0.2-1.3) mg/dL AST 29 (14-36) U/L ALT 16 (4-34) U/L Alkaline Phosphatase 59 (38-126) U/L C-Reactive Protein 1.0 H (<1.0) mg/dL Total Protein 7.6 (6.3-8.2) g/dL Albumin 4.2 (3.5-5.0) g/dL Disposition Clinical Impression: Traumatic hematoma of knee Disposition: HOME SELF-CARE Condition: Stable Instructions (If sedation given, give patient instructions): Hematoma (ED) Additional Instructions: Please follow up with orthopedics. Return to the emergency department for new or worsening symptoms. Is patient prescribed a controlled substance at d/c from ED?: No Referrals: Pa Heard DO [Primary Care Provider] - 1-2 days Nik Green MD [STAFF PHYSICIAN] - 1-2 days Martin Sandhu MD [Medical Doctor] - 1-2 days
--- NOTE | 2024-08-10 18:12 | CT ---
EXAMINATION TYPE: CT lower extremity RT wo con DATE OF EXAM: 08/10/2024 5:26 PM COMPARISON: . Extremity radiograph same day. CLINICAL INDICATION: Female, 83 years old with history of fall; [facility], fell one week ago TECHNIQUE: Axial images were obtained of the CT lower extremity RT wo con, Additional coronal and sag ittal reformatted images and soft tissue and bone window were obtained for review. Contrast used: mL of , (None if empty) Oral contrast used: (None if empty) CT DLP: 212.9 mGycm, Automated exposure control for dose reduction was used. FINDINGS: Diffuse soft tissue swelling throughout the lower extremity. There is moderate degeneration changes of the knee and ankle with osteophyte formation and joint space narrowing. There is severe a therosclerosis of the arterial vasculature. Large heterogenous fluid collection anterior subcutaneous tissues measuring at least 9.2 x 2.3 cm and extending up to 11.2 cm in distance. Diffuse osseous mot tled appearance possibly secondary to disuse. IMPRESSION: 1. Subcutaneous hematoma along the anterior knee. No evidence of fracture. 2. Diffuse soft tissue swelling throughout the lower extremity. 3. Moderate degeneration changes of the knee and ankle. 4. Severe atherosclerosis. [facility], , 08/10/2024 6:10 PM
[2024-08-10 19:15] LABS: Erythrocyte Sedimentation Rate 52 mm/Hr (0-30)
[2024-08-10 19:54] VITALS: BP 147/92; PULSE 76; TEMP 97.8
== END 2024-08-10 19:39 | disposition home or self-care (01) ==
LOC: EC 14:33
DX: S80.01XA Contusion of right knee, initial encounter (principal); Z88.2 Allergy status to sulfonamides; Z88.6 Allergy status to analgesic agent; Z88.8 Allergy status to other drugs, medicaments and biological substances; W19.XXXA Unspecified fall, initial encounter
CPT/HCPCS: 36415; 80053; 85025; 85652; 86140; 99284

== ENCOUNTER → 2024-08-23 | Outpatient (CLI) | payer MEDICARE ==
--- NOTE | 2024-08-25 00:33 | US ---
EXAMINATION TYPE: US venous doppler duplex LE RT DATE OF EXAM: 08/23/2024 3:08 PM COMPARISON: NONE CLINICAL INDICATION: Female, 83 years old with history of M25.561 PAIN IN RIGHT KNEE; , Pain TECHNIQUE: The lower extremity deep venous system is examined utilizing real time linear array sonog radha with graded compression, color doppler sonography, and spectral doppler. SIDE PERFORMED: Right FINDINGS: VESSELS IMAGED: Common Femoral Vein Deep Femoral Vein Greater Saphenous Vein * Femoral Vein Popliteal Vein Small Saphenous Vein * Proximal Calf Veins (* superficial vessels) Right Leg: Appears negative for DVT IMPRESSION: 1 right lower extremity ultrasound negative for deep venous thrombosis. [facility], , 08/25/2024 12:30 AM
== END | disposition home or self-care (01) ==
LOC: RADUSWWP 14:49
PROVIDERS: ATTEND Orthopaedic Surgery
DX: I80.251 Phlebitis and thrombophlebitis of right calf muscular vein (principal)

== ENCOUNTER → 2024-09-01 | Outpatient (CLI) | payer MEDICARE ==
[2024-09-01 15:05] LABS: Basophils % (A) 1.3 %; Eosinophils # (A) 0.25 X 10*3/uL (0.04-0.35); Eosinophils % (A) 3.1 %; HCT 32.1 % (37.2-46.3); HGB 9.3 g/dL (12.0-15.0); Lymphocytes # (A) 1.15 X 10*3/uL (0.90-5.00); Lymphocytes % (A) 14.5 %; MCH 24.9 pg (27.0-32.0); MCV 86.1 FL (80.0-97.0); Mean Platelet Volume 12.6 FL (9.5-12.2); Monocytes # (A) 0.58 X 10*3/uL (0.20-1.00); Monocytes % (A) 7.3 %; NRBC Per 100 WBC 0 X 10*3/uL (0.00-0.01); Neutrophils # (A) 5.84 X 10*3/uL (1.80-7.70); Neutrophils % (A) 73.5 %; Platelet Count 137 X 10*3/uL (140-440); RBC 3.73 X 10*6/uL (4.10-5.20); RDW 14.5 % (11.5-14.5); WBC 7.94 X 10*3/uL (4.50-10.00)
[2024-09-01 15:14] LABS: ALT 13 U/L (8-44); AST 22 U/L (13-35); Albumin 3.7 g/dL (3.8-4.9); Albumin/Globulin Ratio 1.12 Ratio (1.60-3.17); Alkaline Phosphatase 75 U/L (41-126); BUN/Creat Ratio 15.77 Ratio (12.00-20.00); Blood Urea Nitrogen 20.5 mg/dL (9.0-27.0); Calcium 9.1 mg/dL (8.7-10.3); Carbon Dioxide 25.9 mmol/L (21.6-31.8); Chloride 97 mmol/L (96-109); Globulin 3.3 g/dL (1.6-3.3); Glucose 334 mg/dL (70-110); Sodium 136 mmol/L (135-145); Total Bilirubin 0.7 mg/dL (0.3-1.2)
== END | disposition home or self-care (01) ==
LOC: LABPAT 11:26
PROVIDERS: ATTEND Otolaryngology
DX: Z01.818 Encounter for other preprocedural examination (principal); S80.00XD Contusion of unspecified knee, subsequent encounter; C44.90 Unspecified malignant neoplasm of skin, unspecified; Z95.5 Presence of coronary angioplasty implant and graft; G81.94 Hemiplegia, unspecified affecting left nondominant side; I48.91 Unspecified atrial fibrillation; E11.9 Type 2 diabetes mellitus without complications; Z79.4 Long term (current) use of insulin; N18.32 Chronic kidney disease, stage 3b; R29.6 Repeated falls; R60.9 Edema, unspecified
CPT/HCPCS: 80053; 85025

== ENCOUNTER → 2024-09-13 | Outpatient (CLI) | payer MEDICARE ==
[2024-09-13 15:53] LABS: Iron 27 UG/DL (50-170); Total Iron Binding Capacity 365 UG/DL (228-460)
[2024-09-13 16:22] LABS: Vitamin B12 >3600.0 pg/mL (200.0-944.0)
== END | disposition home or self-care (01) ==
LOC: LABWHC1 10:20
PROVIDERS: ATTEND Internal Medicine
DX: R71.8 Other abnormality of red blood cells (principal)
CPT/HCPCS: 36415; 82306; 82607; 82728; 82746; 83540; 83550; 84466

== ENCOUNTER → 2024-09-17 | Outpatient (CLI) | payer MEDICARE ==
--- NOTE | 2024-09-17 12:38 | MR ---
EXAMINATION TYPE: MR liver wo/w con DATE OF EXAM: 09/17/2024 12:07 PM COMPARISON: CT abdomen and pelvis August 26, 2021. CLINICAL INDICATION: Female, 83 years old with history of K76.9 LIVER DISEASE, liver lesion. IV Contrast: 6.5 cc Gadobutrol (None if empty) CONTRAST: Standard multiplanar, multisequence MRI departmental protocol images were obtained without contrast a nd with 6.5 mL intravenous Gadobutrol gadolinium contrast. Imaging performed of the abdomen focusing on the liver. FINDINGS: Slightly suboptimal due to respiratory motion compromise. Liver: Liver is normal in size. No significant signal dropout is seen. In the right hepatic dome ther e is well-circumscribed roughly 1.0 cm thin-walled cyst and in the periphery of the right hepatic lo be there is similar approximately 1.1 cm simple thin-walled cyst. Dynamic postcontrast images show no definitive internal enhancement of either lesion. No concerning enhancing solid masses are present. Dependent small gallstones and gallbladder redemonstrated. Gallbladder shows no abnormal wall thicken ing or surrounding fluid. No biliary dilatation is identified Other: Lung bases are grossly clear. The spleen and both adrenal glands appear within normal limits. Calcifications throughout the spleen on CT are less well seen on MRI. Atrophy of the pancreas is rede monstrated. Some cortical thinning in the left kidney is redemonstrated. There are a few tiny simple appearing thin-walled cysts scattered throughout the right kidney. No hydronephrosis is seen bilatera lly. No AAA. Moderate diffuse colonic fecal prominence. No abnormal bowel dilatation. Multilevel spur ring and disc space narrowing in the lumbar spine. No suspicious abdominal adenopathy. IMPRESSION: Slightly suboptimal study. There are 2 small simple-appearing thin-walled cysts in the liver redemons trated without significant change from 2020 CT. No concerning solid intrahepatic masses are identifie d. [facility], , 09/17/2024 12:36 PM
== END | disposition home or self-care (01) ==
LOC: RADMRIMAIN 10:55
PROVIDERS: ATTEND Otolaryngology
DX: K76.9 Liver disease, unspecified (principal)
CPT/HCPCS: 74183; A9585

== ENCOUNTER → 2024-10-10 | Outpatient (CLI) | payer MEDICARE ==
[2024-10-10 13:34] LABS: Appearance,Urine Clear (Clear); Bilirubin,Urine Negative (Negative); Blood,Urine Negative (Negative); Color,Urine Light Yellow; Fatty Casts,Urine 1 /lpf (0); Glucose,Urine (UA) 1+ (Negative); Hyaline Casts,Urine 4 /lpf (0-2); Ketones,Urine Negative (Negative); Leukocyte Esterase,Urine Trace (Negative); Mucus,Urine Rare /hpf; Nitrite,Urine Negative (Negative); Protein,Urine Trace (Negative); RBC,Urine <1 /hpf (0-5); Specific Gravity,Urine 1.012 (1.001-1.035); Squamous Epithelial Cell,Urine 1 /hpf (0-4); Urobilinogen,Urine <2.0 mg/dL (<2.0); WBC,Urine 3 /hpf (0-5)
[2024-10-10 15:24] LABS: Basophils # (A) 0.08 X 10*3/uL (0.00-0.10); Basophils % (A) 1.1 %; Eosinophils # (A) 0.23 X 10*3/uL (0.04-0.35); Eosinophils % (A) 3.3 %; HCT 39.1 % (37.2-46.3); HGB 11.3 g/dL (12.0-15.0); Lymphocytes # (A) 1.66 X 10*3/uL (0.90-5.00); Lymphocytes % (A) 23.5 %; MCH 24.2 pg (27.0-32.0); MCHC 28.9 g/dL (32.0-37.0); MCV 83.9 FL (80.0-97.0); Mean Platelet Volume 12.8 FL (9.5-12.2); Monocytes # (A) 0.46 X 10*3/uL (0.20-1.00); Monocytes % (A) 6.5 %; NRBC Per 100 WBC 0 X 10*3/uL (0.00-0.01); Neutrophils # (A) 4.61 X 10*3/uL (1.80-7.70); Neutrophils % (A) 65.3 %; Platelet Count 162 X 10*3/uL (140-440); RBC 4.66 X 10*6/uL (4.10-5.20); RDW 16.5 % (11.5-14.5); WBC 7.06 X 10*3/uL (4.50-10.00)
[2024-10-10 15:50] LABS: % Iron Saturation 20.86 (12.00-45.00); BUN/Creat Ratio 16.67 Ratio (12.00-20.00); Calcium 9.6 mg/dL (8.7-10.3); Carbon Dioxide 24.9 mmol/L (21.6-31.8); Chloride 102 mmol/L (96-109); Ferritin 79.2 ng/mL (10.0-291.0); Glucose 147 mg/dL (70-110); Iron 92 UG/DL (50-170); Magnesium 1.9 mg/dL (1.5-2.4); Phosphorus 3.9 mg/dL (2.4-5.1); Potassium 4.4 mmol/L (3.5-5.5); Sodium 141 mmol/L (135-145); Total Iron Binding Capacity 441 UG/DL (228-460)
== END | disposition home or self-care (01) ==
LOC: LABWHC1 12:14
PROVIDERS: ATTEND Nurse Practitioner Family
DX: N18.32 Chronic kidney disease, stage 3b (principal); D63.1 Anemia in chronic kidney disease; N25.81 Secondary hyperparathyroidism of renal origin; N39.0 Urinary tract infection, site not specified; E55.9 Vitamin D deficiency, unspecified
CPT/HCPCS: 36415; 80048; 81001; 82306; 82728; 83540; 83550; 83735; 83970; 84100; 85025

== ENCOUNTER → 2025-01-03 | Outpatient (CLI) | payer MEDICARE ==
--- NOTE | 2025-01-03 12:21 | MM ---
Reason for Exam: Screening (asymptomatic). Last mammogram was performed 1 year(s) and 4 month(s) ago. Patient History: Menarche at age 13. Patient has no children. Hysterectomy at age 72. Postmenopausal. Estrogen for 10 years from age 52 until age 62. Progesterone for 10 years from age 52 until age 62. 1982, Excisional Biopsy on the Left side. Paternal cousin had breast cancer, age 45. Maternal aunt had breast cancer, age 74. Sister had breast cancer, age 77. Risk Values: Iris 5 year model risk: 3.2%. NCI Lifetime model risk: 3.6%. Prior Study Comparison: 05/30/2021 Bilateral Screening Mammogram, [facility]. 06/24/2022 Bilateral MG 3D screening mammo w/cad, [facility]. 08/21/2023 Bilateral MG 3D screening mammo w/cad, [facility]. Tissue Density: The breasts are heterogeneously dense, which may obscure small masses. Findings: Analyzed By CAD. There is no suspicious group of microcalcifications or new suspicious mass in either breast. Overall Assessment: Benign, BI-RAD 2 Management: Screening Mammogram of both breasts in 1 year. . Patient should continue monthly self-breast exams. A clinical breast exam by your physician is recommended on an annual basis. This exam should not preclude additional follow-up of suspicious palpable abnormalities. Note on Iris scores and lifetime risk: 1. A Iris score greater than 3% is considered moderate risk. If this is the case, consider specialist referral to assess eligibility for a risk reducing agent. 2. If overall lifetime risk for the development of breast cancer is 20% or higher, the patient may qualify for future screening with alternating mammogram and breast MRI. [facility], , 01/03/2025 12:18 PM. Electronically signed and approved by: Brennan Macdonald M.D. Radiologis
== END | disposition home or self-care (01) ==
LOC: RADMAMWWP 11:44
PROVIDERS: ATTEND Internal Medicine
DX: Z12.31 Encounter for screening mammogram for malignant neoplasm of breast (principal); R92.333 Mammographic heterogeneous density, bilateral breasts; Z78.0 Asymptomatic menopausal state; Z80.3 Family history of malignant neoplasm of breast
CPT/HCPCS: 77063; 77067

== ENCOUNTER → 2025-02-28 | Outpatient (CLI) | payer MEDICARE | END | disposition home or self-care (01) | LOC: LABWHC1 14:07 | PROVIDERS: ATTEND Ophthalmology | DX: H34.8110 Central retinal vein occlusion, right eye, with macular edema (principal) ==

== ENCOUNTER → 2025-03-01 | Outpatient (CLI) | payer MEDICARE ==
[2025-03-01 19:32] LABS: Basophils % (A) 1.1 %; Eosinophils % (A) 2.1 %; HCT 42.6 % (37.2-46.3); HGB 13.8 g/dL (12.0-15.0); Immature Platelet Fraction 7.2 % (1.1-6.1); Lymphocytes % (A) 26.6 %; MCH 28.2 pg (27.0-32.0); MCHC 32.4 g/dL (32.0-37.0); MCV 87.1 FL (80.0-97.0); Mean Platelet Volume 12.6 FL (9.5-12.2); Monocytes % (A) 7.7 %; NRBC Per 100 WBC 0 X 10*3/uL (0.00-0.01); Neutrophils % (A) 62.2 %; Platelet Count 132 X 10*3/uL (140-440); RBC 4.89 X 10*6/uL (4.10-5.20); RDW 16.1 % (11.5-14.5); WBC 6.21 X 10*3/uL (4.50-10.00)
[2025-03-01 19:33] LABS: Basophils # (A) 0.07 X 10*3/uL (0.00-0.10); Eosinophils # (A) 0.13 X 10*3/uL (0.04-0.35); Lymphocytes # (A) 1.65 X 10*3/uL (0.90-5.00); Monocytes # (A) 0.48 X 10*3/uL (0.20-1.00); Neutrophils # (A) 3.86 X 10*3/uL (1.80-7.70); RBC Morphology Normal (Normal)
[2025-03-01 20:05] LABS: Erythrocyte Sedimentation Rate 16 mm/Hr (0-30)
== END | disposition home or self-care (01) ==
LOC: LABWHC1 14:45
PROVIDERS: ATTEND Ophthalmology
DX: H34.8110 Central retinal vein occlusion, right eye, with macular edema (principal)
CPT/HCPCS: 36415; 85025; 85652

== ENCOUNTER 2025-03-26 20:07 | Emergency (ER) | payer MEDICARE ==
[2025-03-26 20:19] VITALS: RESP 18
--- NOTE | 2025-03-26 22:12 | ED ---
Recheck HPI - General Chief Complaint: Recheck/Abnormal Lab/Rx Stated Complaint: diabetic device malufunction Time Seen by Provider: 03/26/25 21:22 Source: patient, RN notes reviewed, old records reviewed Mode of arrival: wheelchair Limitations: no limitations - History of Present Illness Initial Comments: This is a 84-year-old female to the ER for evaluation patient presents today for evaluation of by diabetic device malfunction. She has no other complaints aside from her current device is no longer working and she needs to replace the device on her arm. MD Complaint: other (Diabetic device replacement) Returns Today for: other (Device replacement) Symptoms Since Prior Visit: no new symptoms Associated Symptoms: none Treatments Prior to Arrival: other (0) - Related Data Home Medications Medication Instructions Recorded Confirmed ALPRAZolam [Xanax] 0.25 mg PO BID PRN 12/12/15 01/26/25 Insulin Glargine,Hum.rec.anlog 32 unit SQ HS 06/22/20 01/26/25 [Lantus Solostar Pen] Rivaroxaban [Xarelto] 15 mg PO DAILY 05/15/21 01/26/25 Rosuvastatin [Crestor] 20 mg PO Q48H 05/15/21 01/26/25 amLODIPine BESYLATE 5 mg PO BID 05/15/21 01/26/25 Aspirin EC [Ecotrin Low Dose] 81 mg PO DAILY 08/10/24 01/26/25 Benazepril HCl 20 mg PO DAILY 08/10/24 01/26/25 Furosemide [Lasix] 20 mg PO Q48H 08/10/24 01/26/25 Furosemide [Lasix] 40 mg PO Q48H 08/10/24 01/26/25 Insulin Aspart [NovoLOG Flexpen] See Protocol SQ AC-TID 08/10/24 01/26/25 Cholecalciferol (Vitamin D3) 50 mcg PO DAILY 01/26/25 01/26/25 [Vitamin D3 (50 Mcg = 2000 Iu)] Cyanocobalamin [Vitamin B-12] 500 mcg PO DAILY 01/26/25 01/26/25 Ferrous Sulfate [Iron (65 MG 325 mg PO DAILY 01/26/25 01/26/25 Elemental)] Fluticasone Nasal [place] [Flonase 1 spray EA NOSTRIL BID 01/26/25 01/26/25 Nasal [place]] Insulin Aspart [NovoLOG Flexpen] 2 - 8 units SQ AC-TID 01/26/25 01/26/25 Mupirocin 2% Oint [Bactroban 2% 1 applic TOPICAL TID 01/26/25 01/26/25 Oint] Orphenadrine Citrate [Orphenadrine 100 mg PO BID PRN 01/26/25 01/26/25 Citrate ER] Previous Rx's Medication Instructions Recorded Metoprolol Succinate (ER) [Toprol 25 mg PO DAILY #30 tab 02/03/25 XL] levETIRAcetam [Keppra] 750 mg PO Q12HR #60 tab 02/03/25 Allergies Allergy/AdvReac Type Severity Reaction Status Date / Time Sulfa (Sulfonamide Allergy Rash/Hives Verified 03/26/25 20:19 Antibiotics) ibuprofen [From Motrin] AdvReac "unable to Verified 03/26/25 20:19 get up out of bed" iron infusion Allergy Anaphylaxis Uncoded 03/26/25 20:19 Review of Systems ROS Statement: Those systems with pertinent positive or pertinent negative responses have been documented in the HPI. ROS Other: All systems not noted in ROS Statement are negative. Past Medical History Past Medical History: Coronary Artery Disease (CAD), Cancer, CVA/TIA, Diabetes Mellitus, Eye Disorder, Hyperlipidemia, Hypertension, Osteoarthritis (OA), Renal Disease Additional Past Medical History / Comment(s): Hx Skin CA. Glaucoma. PAD. TIA OCT 2020-[place], [facility]-LAST EPISODE 05/14/21 History of Any Multi-Drug Resistant Organisms: None Reported Past Surgical History: Adenoidectomy, Breast Surgery, Heart Catheterization, Heart Catheterization With Stent, Hysterectomy, Joint Replacement, Orthopedic Surgery, Tonsillectomy Additional Past Surgical History / Comment(s): left breast biopsy, laparoscopic via naval "to check ovaries and uterus", D & C, [facility], LT Thumb joint replacement, bladder prolapse & repair, EGD, colonoscopy, bilateral eyelid s urgery. 03/16/19 ARTHRETECTOMY LAD W/ STENT; SKIN LESION REMOVED Past Anesthesia/Blood Transfusion Reactions: Postoperative Nausea & Vomiting (PONV) Additional Past Anesthesia/Blood Transfusion Reaction / Comment(s): PONV X1. No hx blood transfusion Date of Last Stent Placement:: 03/28/2019 Past Psychological History: No Psychological Hx Reported Smoking Status: Never smoker Past Alcohol Use History: None Reported Past Drug Use History: None Reported - Past Family History Mother Family Medical History: Cancer, Coronary Artery Disease (CAD), Hypertension Additional Family Medical History / Comment(s): CA: skin Father Family Medical History: Cancer, Coronary Artery Disease (CAD), Hypertension, Myocardial Infarction ([place]) Additional Family Medical History / Comment(s): CA:skin Sister(s) Family Medical History: Coronary Artery Disease (CAD) Additional Family Medical History / Comment(s): CABG Brother(s) Family Medical History: Coronary Artery Disease (CAD), Myocardial Infarction ([place]) General Exam Limitations: no limitations Course Vital Signs 03/26/25 03/26/25 20:16 22:30 Temperature 98.4 F 97.8 F Pulse Rate 66 82 Respiratory 18 18 Rate Blood Pressure 150/88 183/77 O2 Sat by Pulse 98 99 Oximetry - Reevaluation(s) Reevaluation #1: Medical records reviewed Reevaluation #2: Patient mildly anxious but asymptomatic Reevaluation #3: Patient informed of results questions answered follow-up with PCP for replacement diabetic device Reevaluation #4: Was pt. sent in by a medical professional or institution (, PA, HELPDES[employer] SPECIALIST, urgent care, hospital, or prison...) When possible be specific @ -no Did you speak to anyone other than the patient for history (EMS, parent, family, police, friend...)? What history was obtained from this source @ -no Did you review nursing and triage notes (agree or disagree)? Why? @ -agree Are old charts reviewed (outside hosp., previous admission, EMS record, old EKG, old radiological studies, urgent care reports/EKG's, prison records)? Report findings @ -yes Differential Diagnosis (chest pain, altered mental status, abdominal pain women, abdominal pain men, vaginal bleeding, weakness, fever, dyspnea, syncope, headache, dizziness, GI bleed, back pain, seizure, CVA, palpatations, mental health, musculoskeletal)? @ -prior EKG interpreted by me (3pts min.). @ -no X-rays interpreted by me (1pt min.). @ -no CT interpreted by me (1pt min.). @ -no U/S interpreted by me (1pt. min.). @ -no What testing was considered but not performed or refused? (CT, X-rays, U/S, labs)? Why? @ -none What meds were considered but not given or refused? Why? @ -none Did you discuss the management of the patient with other professionals (professionals i.e. , PA, HELPDES[employer] SPECIALIST, lab, RT, psych nurse, social service worker, nail machine operator, teacher, boating safety officer, piano case maker)? Give summary @ -no Was smoking cessation discussed for >3mins.? @ -no Was critical care preformed (if so, how long)? @ -no Were there social determinants of health that impacted care today? How? (Homelessness, low income, unemployed, alcoholism, drug addiction, transportation, low edu. Level, literacy, decrease access to med. care, snf, rehab)? @ -none Was there de-escalation of care discussed even if they declined (Discuss DNR or withdrawal of care, Hospice)? DNR status @ -no What co-morbidities impacted this encounter? (DM, HTN, Smoking, COPD, CAD, Ca ncer, CVA, ARF, Chemo, Hep., AIDS, mental health diagnosis, sleep apnea, morbid obesity)? @ -none Was patient admitted / discharged? Hospital course, mention meds given and route, prescriptions, significant lab abnormalities, going to OR and other pertinent info. @ -84 female with diabetic device malfunction, tried to replace her device today was unable to, patient did bring in a device to help her to try to get placed on her arm we were unable to do that here in the ER she will follow-up with primary care Discharge Undiagnosed new problem with uncertain prognosis? @ -no Drug Therapy requiring intensive monitoring for toxicity (Heparin, Nitro, Insulin, Cardizem)? @ -no Were any procedures done? @ -no Diagnosis/symptom? @ - Acute, or Chronic, or Acute on Chronic? @ -Acute Uncomplicated (without systemic symptoms) or Complicated (systemic symptoms)? @ -Complicated Side effects of treatment? @ -no Exacerbation, Progression, or Severe Exacerbation? @ -exacerbation Poses a threat to life or bodily function? How? (Chest pain, [place], [place], pneumonia, PE, COPD, DKA, ARF, appy, cholecystitis, CVA, Diverticulitis, Homicidal, Suicidal, threat to staff... and all critical care pts) @ -yes Medical Decision Making - Medical Decision Making 84 female with diabetic device malfunction, unable to fix patient's device here in the ER she will be discharged home Disposition Clinical Impression: Normal exam, Diabetes, Hyperglycemia Disposition: HOME SELF-CARE Condition: Fair Instructions (If sedation given, give patient instructions): Normal Exam (ED) Is patient prescribed a controlled substance at d/c from ED?: No Referrals: Pa Heard DO [Primary Care Provider] - 1-2 days Time of Disposition: 22:00
[2025-03-26] MEDS: INSULIN REGULAR 100 UNIT/ML VIAL (IM/SQ) SQ STA (22:29)
[2025-03-26 22:36] VITALS: BP 183/77; PULSE 82; TEMP 97.8
== END 2025-03-26 22:30 | disposition home or self-care (01) ==
LOC: EC 20:07
DX: E11.65 Type 2 diabetes mellitus with hyperglycemia (principal); Z88.2 Allergy status to sulfonamides; Z88.6 Allergy status to analgesic agent; Z88.8 Allergy status to other drugs, medicaments and biological substances
CPT/HCPCS: 99283